=== PATIENT | female | born 1940 | race African-American/Black ===

== ENCOUNTER 2018-04-08 17:50 | Inpatient (IN) | payer MEDICARE, MEDICAID ==
[~2018-04-08] VITALS: Ht 162.6 cm; Wt 86.9 kg
[2018-04-08 17:51] VITALS: BP 135/75
[2018-04-08] MEDS ORDERED: Ipratropium 0.02% Inh Soln 2.5ml UD HHN ONE (18:15)
[2018-04-08] MEDS ORDERED: Albuterol ud Inhalation HHN ONE (18:15)
[2018-04-08 18:57] LABS: BASOPHILS % (AUTO) 2.3 % (0.0-2.0); EOSINOPHILS % (AUTO) 1.1 % (0.0-3.0); HEMATOCRIT 39.9 % (37.0-47.0); HEMOGLOBIN 12.9 G/DL (12.0-16.0); LYMPHOCYTES % (AUTO) 32.6 % (20.0-45.0); MEAN CORPUSCULAR VOLUME 92 FL (80-99); MONOCYTES % (AUTO) 12.9 % (1.0-10.0); NEUTROPHILS % (AUTO) 51.1 % (45.0-75.0); PLATELET COUNT 172 K/UL (150-450); RED BLOOD COUNT 4.34 M/UL (4.20-5.40); RED CELL DISTRIBUTION WIDTH 15.2 % (11.6-14.8); WHITE BLOOD COUNT 4.7 K/UL (4.8-10.8)
[2018-04-08 19:14] LABS: ANION GAP 5 mmol/L (5-15); BLOOD UREA NITROGEN 47 mg/dL (7-18); CALCIUM 9.2 MG/DL (8.5-10.1); CARBON DIOXIDE 32 MMOL/L (21-32); CHLORIDE 103 MMOL/L (98-107); CREATININE 1.2 MG/DL (0.55-1.30); POTASSIUM 4.2 MMOL/L (3.5-5.1); SODIUM 140 MMOL/L (136-145)
[2018-04-08 19:24] LABS: APPEARANCE,URINE SLIGHTLY CLOUDY; BILIRUBIN, URINE NEGATIVE (NEGATIVE); COLOR,URINE PALE YELLOW; GLUCOSE, URINE (UA) NEGATIVE (NEGATIVE); KETONES,URINE NEGATIVE (NEGATIVE); LEUKOCYTE ESTERASE ,URINE NEGATIVE (NEGATIVE); NITRITE,URINE NEGATIVE (NEGATIVE); PH,URINE 5 (4.5-8.0); PROTEIN,URINE NEGATIVE (NEGATIVE); UROBILINOGEN,URINE NORMAL MG/DL (0.0-1.0)
[2018-04-08 19:42] LABS: ALANINE AMINOTRANSFERASE 13 U/L (12-78); ALBUMIN 3.1 G/DL (3.4-5.0); ALBUMIN/GLOBULIN RATIO 0.6 (1.0-2.7); ALKALINE PHOSPHATASE 79 U/L (46-116); ASPARTATE AMINO TRANSFERASE 28 U/L (15-37); BILIRUBIN,TOTAL 0.8 MG/DL (0.2-1.0); CKMB < 0.5 NG/ML (0.0-3.6); CREATINE KINASE 57 U/L (26-308)
[2018-04-08 20:00] VITALS: BP 128/80
--- NOTE | 2018-04-08 20:01 | Emergency Room Report ---
History of Present Illness General Chief Complaint: Dyspnea/Respdistress Source: Patient, EMS Present Illness HPI 77-year-old female presents ED complaining of shortness of breath. Started approximately one hour ago at home. O2 sats low at home area started on nonrebreather. History of CHF with leg swelling. Patient denies any chest pain. Denies any fevers or chills. Denies cough. No other aggravating relieving factors. Denies any other associated symptoms Allergies: Coded Allergies: No Known Allergies (Verified , 11/17/06) Patient History Past Medical History: CHF Past Surgical History: none Pertinent Family History: none Social History: Denies: smoking, alcohol use, drug use Now: No Immunizations: UTD Reviewed Nursing Documentation: PMH: Agreed; PSxH: Agreed Nursing Documentation-PMH Past Medical History: No History, Except For Hx Cardiac Problems: Yes - CHF Review of Systems All Other Systems: negative except mentioned in HPI Physical Exam Vital Signs Date Time Temp Pulse Resp B/P (MAP) Pulse Ox O2 Delivery O2 Flow Rate FiO2 04/08/18 17:42 97.8 100 18 148/76 99 Non-Rebreather 15.0 97.9 04/08/18 18:32 100 Sp02 EP Interpretation: reviewed, normal General Appearance: alert, GCS 15, non-toxic, mild distress Head: normocephalic, atraumatic Eyes: bilateral eye normal inspection, bilateral eye PERRL ENT: hearing grossly normal, normal pharynx, no angioedema, normal voice Neck: full range of motion, supple/symm/no masses Respiratory: chest non-tender, decreased breath sounds, crackles, speaking full sentences Cardiovascular #1: regular rate, rhythm, no edema Cardiovascular #2: 2+ carotid (R), 2+ carotid (L), 2+ radial (R), 2+ radial (L) , 2+ dorsalis pedis (R), 2+ dorsalis pedis (L) Gastrointestinal: normal bowel sounds, non tender, soft, non-distended, no guarding, no rebound Rectal: deferred Genitourinary: normal inspection, no CVA tenderness Musculoskeletal: back normal, gait/station normal, normal range of motion, non- tender Neurologic: alert, oriented x3, responsive, motor strength/tone normal, sensory intact, speech normal Psychiatric: judgement/insight normal, memory normal, mood/affect normal, no suicidal/homicidal ideation Reflexes: 3+ bicep (R), 3+ bicep (L), 3+ tricep (R), 3+ tricep (L), 3+ knee (R) , 3+ knee (L) Skin: normal color, no rash, warm/dry, well hydrated Lymphatic: no adenopathy Procedures Critical Care Time Critical Care Time i. I feel this is a highly complex case requiring extensive working including EKG/Rhythm strip, Xray/CT/US, Blood/urine lab work, repeat exams while in ED, and administration of strong opiates/narcotics for pain control, admission to hospital or close patient follow up. Total time: 30 min bedside evaluation and treatment excludes procedures (EKG). Reason for critical care: respiratory distress. hypoxia Possible complications: hypotension, hypertension, NC, shock, arrhythmias, metabolic acidosis, end organ damage, respiratory failure. Interventions: labs, ekg, cxr, abg, nebs. BIPAP. abx. lasix. Course: patient presenting with SOB. hypoxia. started on nebs. labs drawn. EKG. CXR. CXR shows profound CHF exacerbation. BNP elevated. ABG shows hypoxia. started on BIPAP. resp status improving. abx given. lasix given. Consultations: nursing staff, EMS, family Performed by: Dr Farah Tolerated well condition = serious j. because of unstable vital signs this patient had a condition that could potentially threaten life or limb. I feel this is a critical patient who required my full attention while patient was considered critical. Total Critical Care Time excluding procedures was greater than 35 minutes Medical Decision Making Diagnostic Impression: Primary Impression: Dyspnea Qualified Codes: R06.00 - Dyspnea, unspecified Additional Impression: Acute exacerbation of CHF (congestive heart failure) Qualified Codes: I50.9 - Heart failure, unspecified ER Course Hospital Course 77-year-old female presents ED complaining of shortness of breath, leg swelling Differential diagnoses include: NC/unstable angina, contusion, muscle strain, PTX, rib fracture Clinical course Patient placed on stretcher. on conveyor monitor. After initial history and physical I ordered labs, EKG, chest x-ray, nebs labs reviewed- no leukocytosis, hemoglobin/hematocrit stable, electrolytes ok, BNP elevated EKG - paced rhythm Chest x-ray- signficant pulmonary congestion, pacemaker Remains restless on nebs. O2 sats remained low. Started on BiPAP. Respiratory status improving Antibiotics given. Lasix given. Case discussed with Dr. Nguyen and he agreed to accept the patient to his service for further care and support I. I feel this is a highly complex case requiring extensive working including EKG/Rhythm strip, Xray/CT/US, Blood/urine lab work, repeat exams while in ED, and administration of strong opiates/narcotics for pain control, admission to hospital or close patient follow up. Diagnosis - CHF exacerbation, dyspnea admitted to SDU in serious condition Labs Test 04/08/18 18:05 04/08/18 18:15 04/08/18 19:00 Arterial Blood pH 7.390 (7.350-7.450) Arterial Blood Partial Pressure CO2 57.5 mmHg (35.0-45.0) Arterial Blood Partial Pressure O2 44.9 mmHg (75.0-100.0) Arterial Blood HCO3 34.3 mmol/L (22.0-26.0) Arterial Blood Oxygen Saturation 77.0 % (92.0-98.0) Arterial Blood Base Excess 7.6 Dustin Test Positive White Blood Count 4.7 K/UL (4.8-10.8) Red Blood Count 4.34 M/UL (4.20-5.40) Hemoglobin 12.9 G/DL (12.0-16.0) Hematocrit 39.9 % (37.0-47.0) Mean Corpuscular Volume 92 FL (80-99) Mean Corpuscular Hemoglobin 29.7 PG (27.0-31.0) Mean Corpuscular Hemoglobin Concent 32.4 G/DL (32.0-36.0) Red Cell Distribution Width 15.2 % (11.6-14.8) Platelet Count 172 K/UL (150-450) Mean Platelet Volume 8.1 FL (6.5-10.1) Neutrophils (%) (Auto) 51.1 % (45.0-75.0) Lymphocytes (%) (Auto) 32.6 % (20.0-45.0) Monocytes (%) (Auto) 12.9 % (1.0-10.0) Eosinophils (%) (Auto) 1.1 % (0.0-3.0) Basophils (%) (Auto) 2.3 % (0.0-2.0) Sodium Level 140 MMOL/L (136-145) Potassium Level 4.2 MMOL/L (3.5-5.1) Chloride Level 103 MMOL/L (98-107) Carbon Dioxide Level 32 MMOL/L (21-32) Anion Gap 5 mmol/L (5-15) Blood Urea Nitrogen 47 mg/dL (7-18) Creatinine 1.2 MG/DL (0.55-1.30) Estimat Glomerular Filtration Rate mL/min (>60) Glucose Level 79 MG/DL (74-106) Lactic Acid Level 1.00 mmol/L (0.4-2.0) Calcium Level 9.2 MG/DL (8.5-10.1) Total Bilirubin 0.8 MG/DL (0.2-1.0) Aspartate Amino Transf (AST/SGOT) 28 U/L (15-37) Alanine Aminotransferase (ALT/SGPT) 13 U/L (12-78) Alkaline Phosphatase 79 U/L (46-116) Total Creatine Kinase 57 U/L (26-308) Creatine Kinase MB < 0.5 NG/ML (0.0-3.6) Creatine Kinase MB Relative Index 0.8 Troponin I 0.000 ng/mL (0.000-0.056) Pro-B-Type Natriuretic Peptide 2284 pg/mL (0-125) Total Protein 8.6 G/DL (6.4-8.2) Albumin 3.1 G/DL (3.4-5.0) Globulin 5.5 g/dL Albumin/Globulin Ratio 0.6 (1.0-2.7) Urine Color Pale yellow Urine Appearance Slightly cloudy Urine pH 5 (4.5-8.0) Urine Specific [place] 1.015 (1.005-1.035) Urine Protein Negative (NEGATIVE) Urine Glucose (UA) Negative (NEGATIVE) Urine Ketones Negative (NEGATIVE) Urine Occult Blood 1+ (NEGATIVE) Urine Nitrite Negative (NEGATIVE) Urine Bilirubin Negative (NEGATIVE) Urine Urobilinogen Normal MG/DL (0.0-1.0) Urine Leukocyte Esterase Negative (NEGATIVE) Urine RBC 0-2 /HPF (0 - 2) Urine WBC 0-2 /HPF (0 - 2) Urine Squamous Epithelial Cells Many /LPF (NONE/OCC) Urine Amorphous Sediment Many /LPF (NONE) Urine Bacteria None /HPF (NONE) EKG Diagnostic Results Rate: normal Rhythm: other - atrial paced ST Segments: no acute changes ASA given to the pt in ED: No Rhythm Strip Diag. Results EP Interpretation: yes Rhythm: no PVC's, no ectopy Chest X-Ray Diagnostic Results Chest X-Ray Diagnostic Results : Chest X-Ray Ordered: Yes # of Views/Limited/Complete: 1 View Indication: Shortness of Breath EP Interpretation: Yes Interpretation: no pneumothorax, other - cardiomegaly. bilateral effusion. pacemaker Impression: Other - chf Electronically Signed by: Electronically signed by Gus Farah MD Last Vital Signs Date Time Temp Pulse Resp B/P (MAP) Pulse Ox O2 Delivery O2 Flow Rate FiO2 04/08/18 19:21 69 31 100 Facial 100 04/08/18 18:44 15.0 04/08/18 17:51 98.4 135/75 98.4 Status: improved Disposition: ADMITTED INPATIENT Condition: Serious Referrals: Harjit Nguyen MD (PCP) Gus Farah MD Apr 08, 2018 20:01
[2018-04-08] MEDS ORDERED: Piperacillin/Tazobactam 3.375 GM in NS 110 ML IVPB SCH (22:00)
[2018-04-08 22:03] VITALS: BP 148/67
[2018-04-08] MEDS ORDERED: ASPIRIN81 MG ORAL (22:13)
[2018-04-08] MEDS ORDERED: NORCO 5-325 TA1 EACH ORAL (22:13)
[2018-04-08] MEDS ORDERED: FUROSEMIDE80 M1 ORAL (22:13)
[2018-04-08 22:55] VITALS: BP 162/88
[2018-04-08] MEDS: Albuterol/Ipratropium 3ml neb HHN SCH (23:41)
[2018-04-09] VITALS: BP 162/88
[2018-04-09] MEDS: Solu-MEDROL 125mg Inj IVP SCH ×4 (01:07→21:18)
[2018-04-09] MEDS: Nitroglycerin 2% oint pkt TOPIC SCH ×4 (01:07→18:19)
[2018-04-09] MEDS: Vancomycin 1.5gm/D5W 250ml 250 ML IVPB SCH (01:07)
[2018-04-09] MEDS: Albuterol/Ipratropium 3ml neb HHN SCH ×6 (03:00→22:52)
[2018-04-09 04:00] VITALS: BP 116/56
[2018-04-09] MEDS ORDERED: Zosyn 3.375gm inj ONE (05:13)
[2018-04-09 05:18] LABS: ANION GAP 0 mmol/L (5-15); BLOOD UREA NITROGEN 38 mg/dL (7-18); CALCIUM 8.8 MG/DL (8.5-10.1); CARBON DIOXIDE 36 MMOL/L (21-32); CHLORIDE 105 MMOL/L (98-107); CREATININE 1.2 MG/DL (0.55-1.30); SODIUM 141 MMOL/L (136-145)
[2018-04-09 05:22] LABS: ALANINE AMINOTRANSFERASE 13 U/L (12-78); ALBUMIN 2.8 G/DL (3.4-5.0); ALBUMIN/GLOBULIN RATIO 0.6 (1.0-2.7); ALKALINE PHOSPHATASE 70 U/L (46-116); ASPARTATE AMINO TRANSFERASE 19 U/L (15-37); BILIRUBIN,TOTAL 0.7 MG/DL (0.2-1.0)
[2018-04-09] MEDS: Piperacillin/Tazobactam 3.375 GM in NS 110 ML IVPB SCH ×3 (06:22→21:20)
[2018-04-09 08:00] VITALS: BP 197/75
[2018-04-09] MEDS: Heparin 5000 units/ml inj SUBQ SCH ×2 (08:53→21:19)
[2018-04-09 11:56] VITALS: BP 181/82
--- NOTE | 2018-04-09 13:47 | Diagnostic Imaging Report ---
Indication: Shortest of breath Technique: XRAY Chest 1v Comparison: 06/08/2012 Findings: Cardiomegaly. Left-sided pacemaker with lead tips projecting over the expected regions of the right atrium and ventricle. There is bilateral interstitial opacification/edema and bilateral airspace opacities. No definite pneumothorax. Degenerative changes of the spine. No acute osseous abnormality. Impression: Cardiomegaly with interstitial and bilateral airspace opacities. Findings may be related to CHF. The possibility of superimposed pneumonia not entirely excluded. Clinical correlation/follow-up recommended. Question a degree of underlying interstitial lung disease. Recommend follow-up exam after resolution of acute process. Study obtained via the emergency department however patient admitted to the hospital at time of dictation of the final report.
[2018-04-09] MEDS: HYDROcodone/Acetamin 10/325 tab ORAL PRN ×2 (14:28→21:19)
[2018-04-09 16:00] VITALS: BP 135/65
--- NOTE | 2018-04-09 18:16 | History and Physical Report ---
DATE OF ADMISSION: 04/08/2018 CHIEF COMPLAINT: Respiratory failure and congestive heart failure. HISTORY OF PRESENT ILLNESS: The patient is a pleasant 77-year-old female. She has a history of hypertensive heart disease and venous insufficiency. She has a history of DVT, status post IVC filter, questionable pulmonary fibrosis and chronic obstructive pulmonary disease. She has a history of congestive heart failure. She was recently admitted for congestive heart failure exacerbation and discharged to a [facility] facility. She was doing well. She was discharged a little over a week ago. On the day of admission here, she felt weak and short of breath. She went to the emergency room. On evaluation there, she was in respiratory failure. She required placement on a BiPAP. ABG showed an elevated pCO2 of 57. Saturations were only in the 40s. The patient was placed on BiPAP. X-ray showed evidence of pulmonary edema and congestive heart failure. She is now admitted for further evaluation and care. The patient denies any dietary noncompliance or medication noncompliance. She denies any fevers or chills. She has had no cough. PAST MEDICAL HISTORY: As above. PAST SURGICAL HISTORY: Includes back surgery. CURRENT MEDICATIONS: Reconciled and reviewed. ALLERGIES: None. FAMILY HISTORY: None. SOCIAL HISTORY: Negative for tobacco, ethanol, or drugs. REVIEW OF SYSTEMS: GENERAL: No fever or chills. HEENT: No headaches or visual changes. CARDIOPULMONARY: Positive for shortness of breath, but no chest pain. GASTROINTESTINAL: No nausea or vomiting. GENITOURINARY: No urgency or frequency. MUSCULOSKELETAL: No joint pain or swelling. NEUROLOGIC: No evidence of seizures. PHYSICAL EXAMINATION: VITAL SIGNS: Temperature 98 degrees, pulse 60, respirations 20, and blood pressure 116/56. The patient is saturating 98% on 45% via BiPAP. GENERAL: The patient is in no apparent distress. She is alert and answers questions. NECK: Supple. There is no jugular venous distention. HEART: Regular rate and rhythm. LUNGS: Significant for bilateral rales. ABDOMEN: Soft, nontender, and nondistended. EXTREMITIES: Show 1+ to 2+ pitting edema. LABORATORY DATA: White count 4.7, hemoglobin 12, hematocrit 39, and platelets of 172,000. Most recent ABG showed a pH of 7.35, pCO2 62, pO2 of 200, bicarb 33, and O2 saturation of 99%. Sodium 140, potassium 4.2, chloride 103, bicarb 32, BUN 47, and creatinine is 1.2. The troponin is negative x2. Natriuretic peptide level was 2284. Urine was clear. ASSESSMENT: This is a pleasant female admitted with respiratory failure secondary to congestive heart failure exacerbation. 1. Respiratory failure. 2. Congestive heart failure exacerbation. 3. Hypertension. 4. History of deep venous thrombosis, status post IVC filter. 5. Chronic obstructive pulmonary disease. PLAN: 1. IV Lasix. 2. Topical nitrates. 3. Steroids. 4. Respiratory treatments. 5. Continue BiPAP. 6. Monitor blood gases. 7. Pulmonary consultation and Cardiology consultations to be obtained. Harjit Nguyen M.D. DR: CHAPARRO JOB#: [id number] CC:
[2018-04-09 20:00] VITALS: BP 153/76
[2018-04-10] VITALS: BP 132/68
[2018-04-10] MEDS: Nitroglycerin 2% oint pkt TOPIC SCH ×5 (00:22→23:44)
[2018-04-10] MEDS: Vancomycin 1.5gm/D5W 250ml 250 ML IVPB SCH (00:22)
[2018-04-10] MEDS: Albuterol/Ipratropium 3ml neb HHN SCH ×5 (02:38→19:41)
[2018-04-10] MEDS: HYDROcodone/Acetamin 10/325 tab ORAL PRN ×4 (03:54→20:20)
[2018-04-10 04:00] VITALS: BP 141/62
[2018-04-10] MEDS: Piperacillin/Tazobactam 3.375 GM in NS 110 ML IVPB SCH ×3 (05:18→22:09)
[2018-04-10] MEDS: Solu-MEDROL 125mg Inj IVP SCH ×3 (05:18→22:09)
[2018-04-10 08:00] VITALS: BP 169/85
--- NOTE | 2018-04-10 08:03 | General Progress Note ---
Assessment/Plan Problem List: (1) Pacemaker ICD Codes: Z95.0 - Presence of cardiac pacemaker SNOMED: 801409557 (2) DVT (deep venous thrombosis) ICD Codes: I82.409 - Acute embolism and thrombosis of unspecified deep veins of unspecified lower extremity SNOMED: 767150732 (3) HTN (hypertension) ICD Codes: I10 - Essential (primary) hypertension SNOMED: 13375746 (4) Dyspnea ICD Codes: R06.00 - Dyspnea, unspecified SNOMED: 999793777 Qualifiers: Qualified Codes: R06.00 - Dyspnea, unspecified (5) Acute exacerbation of CHF (congestive heart failure) ICD Codes: I50.9 - Heart failure, unspecified SNOMED: 15248677 Qualifiers: Qualified Codes: I50.9 - Heart failure, unspecified Status: stable, progressing Assessment/Plan cont current rx diuresis follow labs bp rx follow cxr pain rx Subjective ROS Limited/Unobtainable: No Constitutional: Reports: malaise, weakness HEENT: Reports: no symptoms Cardiovascular: Reports: edema Respiratory: Reports: cough, shortness of breath Gastrointestinal/Abdominal: Reports: no symptoms Genitourinary: Reports: no symptoms Neurologic/Psychiatric: Reports: no symptoms Endocrine: Reports: no symptoms Hematologic/Lymphatic: Reports: no symptoms Allergies: Coded Allergies: No Known Allergies (Verified , 11/17/06) All Systems: reviewed and negative except above Subjective better. on 4L. decreased sob. no cp Objective Last 24 Hour Vital Signs Date Time Temp Pulse Resp B/P (MAP) Pulse Ox O2 Delivery O2 Flow Rate FiO2 04/10/18 05:19 132/68 04/10/18 04:00 96.3 67 20 141/62 (88) 100 96.3 04/10/18 04:00 60 04/10/18 04:00 Nasal Cannula 3.0 04/10/18 02:39 66 18 98 04/10/18 02:39 65 18 98 Nasal Cannula 2.0 28 04/10/18 02:33 67 22 96 Nasal Cannula 3.0 32 04/10/18 00:58 61 18 97 04/10/18 00:27 60 20 96 04/10/18 00:22 132/68 04/10/18 00:00 60 04/10/18 00:00 97.3 66 20 132/68 (89) 96 97.3 04/10/18 00:00 Nasal Cannula 3.0 04/09/18 23:04 61 20 98 Nasal Cannula 2.0 28 04/09/18 22:52 60 20 97 04/09/18 22:52 60 20 97 Nasal Cannula 3.0 32 04/09/18 21:18 60 20 95 04/09/18 20:00 71 04/09/18 20:00 97.7 60 19 153/76 (101) 98 97.7 04/09/18 20:00 Nasal Cannula 3.0 04/09/18 19:20 95 Nasal Cannula 3.0 32 04/09/18 19:20 75 20 95 04/09/18 19:20 Nasal Cannula 3.0 32 04/09/18 19:20 Nasal Cannula 3.0 32 04/09/18 19:20 75 20 Nasal Cannula 3.0 32 04/09/18 19:20 75 20 95 Nasal Cannula 3.0 32 04/09/18 18:19 135/65 04/09/18 16:46 77 20 94 04/09/18 16:00 Venturi Mask 15.0 04/09/18 16:00 69 04/09/18 16:00 98.5 53 20 135/65 (88) 93 98.5 04/09/18 15:42 87 22 100 Nasal Cannula 2.0 28 04/09/18 15:29 59 22 93 Nasal Cannula 2.0 28 04/09/18 15:29 59 22 93 04/09/18 13:13 72 22 95 04/09/18 12:16 86 22 100 Nasal Cannula 2.0 28 04/09/18 12:02 84 22 100 Nasal Cannula 2.0 28 04/09/18 12:00 4.0 100 04/09/18 12:00 60 04/09/18 11:58 181/82 04/09/18 11:56 97.5 55 20 181/82 (115) 100 97.5 04/09/18 11:45 70 24 96 04/09/18 11:41 Venturi Mask 15.0 04/09/18 09:42 62 Intake and Output 04/09/18 04/10/18 19:00 07:00 Intake Total 480 ml 721.5 ml Output Total 1400 ml 500 ml Balance -920 ml 221.5 ml Intake Oral 480 ml 250 ml IV Total 471.5 ml Output Urine Total 1400 ml 500 ml # Bowel Movements 1 Height (Feet): 5 Height (Inches): 4.00 Weight (Pounds): 188 General Appearance: WD/WN, alert Neck: supple Cardiovascular: normal rate, regular rhythm Respiratory/Chest: crackles/rales Abdomen: normal bowel sounds, non tender, soft, no organomegaly Edema: mild edema 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
[2018-04-10] MEDS: Heparin 5000 units/ml inj SUBQ SCH ×2 (08:53→20:51)
--- NOTE | 2018-04-10 08:54 | Diagnostic Imaging Report ---
EXAM: XR Chest, 1 View CLINICAL HISTORY: COUGH TECHNIQUE: Frontal view of the chest. COMPARISON: April 08, 2018. FINDINGS: Enlarged cardiac silhouette with a interstitial and airspace opacities, similar to prior. Tortuous/ectatic thoracic aorta. Pacemaker device. No pleural effusions. IMPRESSION: Overall, little interval change. Suspected edema/failure with interstitial lung disease and atelectasis/infiltrates.
[2018-04-10 12:00] VITALS: BP 160/58
[2018-04-10] MEDS ORDERED: Tubing IV Secondary IV ONE (15:23)
[2018-04-10] MEDS ORDERED: NS 275ml ONE (15:23)
[2018-04-10 16:00] VITALS: BP 159/76
[2018-04-10 20:00] VITALS: BP 192/99
[2018-04-10] MEDS ORDERED: HydrALAZINE 25mg tab ORAL PRN (20:30)
[2018-04-10] MEDS ORDERED: Lisinopril 20mg tab ORAL SCH (21:00)
[2018-04-11] VITALS (7 sets, daily range): BP systolic 100–186; BP diastolic 56–93
[2018-04-11] MEDS ORDERED: Vancomycin 1.5gm/D5W 250ml 250 ML IVPB SCH
[2018-04-11] MEDS: HYDROcodone/Acetamin 10/325 tab ORAL PRN ×4 (02:55→21:29)
[2018-04-11] MEDS: Albuterol/Ipratropium 3ml neb HHN SCH ×6 (03:51→23:22)
[2018-04-11] MEDS: HydrALAZINE 25mg tab ORAL PRN ×3 (04:46→21:29)
[2018-04-11] MEDS: Solu-MEDROL 125mg Inj IVP SCH ×3 (06:30→21:21)
[2018-04-11] MEDS: Piperacillin/Tazobactam 3.375 GM in NS 110 ML IVPB SCH ×3 (06:30→21:21)
[2018-04-11] MEDS: Nitroglycerin 2% oint pkt TOPIC SCH ×3 (06:30→18:00)
[2018-04-11 08:18] LABS: ALANINE AMINOTRANSFERASE 14 U/L (12-78); ALBUMIN 2.9 G/DL (3.4-5.0); ALBUMIN/GLOBULIN RATIO 0.5 (1.0-2.7); ALKALINE PHOSPHATASE 64 U/L (46-116); ANION GAP 4 mmol/L (5-15); ASPARTATE AMINO TRANSFERASE 17 U/L (15-37); BILIRUBIN,TOTAL 0.4 MG/DL (0.2-1.0); BLOOD UREA NITROGEN 31 mg/dL (7-18); CALCIUM 9.3 MG/DL (8.5-10.1); CARBON DIOXIDE 37 MMOL/L (21-32); CHLORIDE 102 MMOL/L (98-107); CREATININE 1.1 MG/DL (0.55-1.30); POTASSIUM 3.9 MMOL/L (3.5-5.1); SODIUM 142 MMOL/L (136-145)
[2018-04-11] MEDS: Lisinopril 20mg tab ORAL SCH ×2 (08:53→21:20)
[2018-04-11] MEDS: Heparin 5000 units/ml inj SUBQ SCH ×2 (08:56→21:23)
--- NOTE | 2018-04-11 11:11 | General Progress Note ---
Assessment/Plan Problem List: (1) Pacemaker ICD Codes: Z95.0 - Presence of cardiac pacemaker SNOMED: 888325613 (2) DVT (deep venous thrombosis) ICD Codes: I82.409 - Acute embolism and thrombosis of unspecified deep veins of unspecified lower extremity SNOMED: 645214443 (3) HTN (hypertension) ICD Codes: I10 - Essential (primary) hypertension SNOMED: 49107503 (4) Dyspnea ICD Codes: R06.00 - Dyspnea, unspecified SNOMED: 795035565 Qualifiers: Qualified Codes: R06.00 - Dyspnea, unspecified (5) Acute exacerbation of CHF (congestive heart failure) ICD Codes: I50.9 - Heart failure, unspecified SNOMED: 51258758 Qualifiers: Qualified Codes: I50.9 - Heart failure, unspecified Status: stable, progressing Assessment/Plan cont current rx diuresis follow labs bp rx follow cxr pain rx Subjective ROS Limited/Unobtainable: No Constitutional: Reports: weakness HEENT: Reports: no symptoms Cardiovascular: Reports: edema Respiratory: Reports: shortness of breath Gastrointestinal/Abdominal: Reports: no symptoms Genitourinary: Reports: no symptoms Neurologic/Psychiatric: Reports: no symptoms Endocrine: Reports: no symptoms Hematologic/Lymphatic: Reports: no symptoms Allergies: Coded Allergies: No Known Allergies (Verified , 11/17/06) All Systems: reviewed and negative except above Subjective better. decreased o2 needs. decreased sob. no chest pain decreased edema. Objective Last 24 Hour Vital Signs Date Time Temp Pulse Resp B/P (MAP) Pulse Ox O2 Delivery O2 Flow Rate FiO2 04/11/18 08:53 159/79 04/11/18 08:00 69 04/11/18 08:00 98.1 62 20 159/79 (105) 96 98.1 04/11/18 08:00 Nasal Cannula 3.0 04/11/18 07:28 98 Nasal Cannula 3.0 32 04/11/18 07:28 92 20 100 Nasal Cannula 3.0 32 04/11/18 07:28 Nasal Cannula 3.0 32 04/11/18 07:20 89 18 92 Room Air 21 04/11/18 06:30 177/90 04/11/18 04:46 177/90 04/11/18 04:00 97.2 86 20 100/56 (71) 96 97.2 04/11/18 04:00 Nasal Cannula 3.0 04/11/18 04:00 101 04/11/18 03:51 70 20 98 Nasal Cannula 3.0 32 04/11/18 03:51 Nasal Cannula 04/11/18 00:00 97.5 60 20 166/82 (110) 100 97.5 04/11/18 00:00 Nasal Cannula 3.0 04/10/18 23:44 154/82 04/10/18 23:34 Nasal Cannula 04/10/18 23:34 65 20 97 Nasal Cannula 3.0 32 04/10/18 23:29 68 04/10/18 21:00 Nasal Cannula 3.0 04/10/18 20:52 192/99 04/10/18 20:00 97.5 60 20 192/99 (130) 100 97.5 04/10/18 20:00 63 04/10/18 19:51 60 20 100 Nasal Cannula 3.0 32 04/10/18 19:41 60 20 98 Nasal Cannula 3.0 32 04/10/18 19:41 98 Nasal Cannula 3.0 32 04/10/18 19:41 Nasal Cannula 3.0 32 04/10/18 17:58 169/85 04/10/18 16:00 60 04/10/18 16:00 97.2 60 22 159/76 (103) 98 97.2 04/10/18 16:00 Nasal Cannula 3.0 04/10/18 15:59 Nasal Cannula 04/10/18 15:57 Nasal Cannula 04/10/18 12:17 169/85 04/10/18 12:04 Nasal Cannula 3.0 04/10/18 12:00 60 04/10/18 12:00 97.5 60 24 160/58 (92) 96 97.5 04/10/18 11:56 63 20 100 Nasal Cannula 2.0 28 04/10/18 11:46 61 20 99 Nasal Cannula 3.0 32 Intake and Output 04/10/18 04/11/18 19:00 07:00 Intake Total 500 ml 747.5 ml Output Total 500 ml Balance 500 ml 247.5 ml Intake Oral 500 ml 360 ml IV Total 387.5 ml Output Urine Total 500 ml # Voids 4 # Bowel Movements 1 Laboratory Tests 04/11/18 06:30: Sodium Level 142, Potassium Level 3.9, Chloride Level 102, Carbon Dioxide Level 37H, Anion Gap 4L, Blood Urea Nitrogen 31H, Creatinine 1.1, Estimat Glomerular Filtration Rate , Glucose Level 102, Calcium Level 9.3, Magnesium Level 2.1, Total Bilirubin 0.4, Aspartate Amino Transf (AST/SGOT) 17, Alanine Aminotransferase (ALT/SGPT) 14, Alkaline Phosphatase 64, Total Protein 8.5H, Albumin 2.9L, Globulin 5.6, Albumin/Globulin Ratio 0.5L Height (Feet): 5 Height (Inches): 4.00 Weight (Pounds): 187 Objective General Appearance: WD/WN, alert Neck: supple Cardiovascular: normal rate, regular rhythm Respiratory/Chest: crackles/rales Abdomen: normal bowel sounds, non tender, soft, no organomegaly Edema: mild edema 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
--- NOTE | 2018-04-11 12:19 | Cardiology Report ---
APPROVED REPORT EKG Measurement Heart [id number] Atrial paced, ventricular sensed rhythm Electronic pacemaker Septal infarct, age undetermined Abnormal ECG
--- NOTE | 2018-04-11 19:00 | Consultation ---
DATE OF CONSULTATION: 04/11/2018 INFECTIOUS DISEASE CONSULTATION This consult is for coverage of Dr. Li. CONSULTING PHYSICIAN: Yazan Braden M.D. PRIMARY ATTENDING PHYSICIAN: Harjit Nguyen M.D. REASON FOR CONSULT: Bacteremia and COPD exacerbation. HISTORY OF PRESENT ILLNESS: This is a 77-year-old, female admitted on 04/08/2018 from home because of shortness of breath. She has history of COPD and CHF. At home, she is getting antibiotic. At the time of admission, she was on BiPAP. Blood culture growing gram-positive cocci. The patient had no fever or chills. PAST MEDICAL HISTORY: Significant for CHF, hypertension, history of DVT and IVC filter placement, history of pulmonary emboli, and status post pacemaker. ALLERGIES: No known drug allergies. MEDICATIONS: Getting Lasix, heparin, lisinopril, Protonix, vancomycin, Zosyn, methylprednisone, Zofran, albuterol, ipratropium inhaler, [place], hydralazine and nitroglycerin. SOCIAL HISTORY: Lives at home. No history of alcohol, drug abuse, or smoking. She is single. REVIEW OF SYSTEMS: No fever. No chills. She has productive coughing, but cannot brought up sputum. She has good appetite. No nausea. No vomiting. No problem passing urine. PHYSICAL EXAMINATION: VITAL SIGNS: Temperature 98.1 degrees, pulse 80, and blood pressure is 159/79. GENERAL APPEARANCE: No acute distress. HEAD AND NECK: Getting oxygen by Venturi mask. HEART: Normal rate. There is a pacemaker in the left side of the chest. LUNGS: Clear. ABDOMEN: Soft. EXTREMITIES: No significant edema. LABORATORY AND DIAGNOSTIC DATA: ABG showed pH of 7.352, pCO2 of 62.4, and pCO2 of 200, O2 saturation 99%. Sodium 142, potassium 3.9, chloride 107, bicarbonate 37, BUN 31, and creatinine 1.1. WBC 4.7, hemoglobin 12.9, hematocrit 39.9, and platelets 172. Chest x-ray, enlarged cardiac size, interstitial and air space opacities, suspected of edema with interstitial lung disease and atelectasis versus infiltrate. Blood culture, gram-positive cocci. IMPRESSION: 1. Bacteremia. The patient does not look septic. 2. Chronic obstructive pulmonary disease exacerbation. 3. Hypercapnic respiratory failure. 4. Congestive heart failure. 5. Hypertension. 6. History of pacemaker. RECOMMENDATION: We will continue Zosyn and vancomycin. We will follow up the culture and narrow antibiotics. At the end of my exam, I thank Dr. Nguyen for involving me in the care of this patient. Yazan Braden M.D. DR: AMBER JOB#: [id number] CC:
[2018-04-12] MEDS: Vancomycin 1.5gm/D5W 250ml 250 ML IVPB SCH (02:41)
[2018-04-12] MEDS ORDERED: Zolpidem 5mg tab ORAL PRN (02:45)
[2018-04-12] MEDS: Albuterol/Ipratropium 3ml neb HHN SCH ×5 (02:54→23:00)
[2018-04-12 04:00] VITALS: BP 199/102
[2018-04-12] MEDS: Piperacillin/Tazobactam 3.375 GM in NS 110 ML IVPB SCH ×3 (05:39→22:05)
[2018-04-12] MEDS: Solu-MEDROL 125mg Inj IVP SCH ×3 (05:39→21:24)
[2018-04-12] MEDS: Nitroglycerin 2% oint pkt TOPIC SCH ×4 (05:40→18:00)
[2018-04-12] MEDS: HYDROcodone/Acetamin 10/325 tab ORAL PRN ×3 (05:41→21:34)
[2018-04-12] MEDS: HydrALAZINE 25mg tab ORAL PRN ×2 (05:55→12:45)
[2018-04-12 08:00] VITALS: BP 182/92
[2018-04-12] MEDS: Lisinopril 20mg tab ORAL SCH ×2 (09:00→21:35)
[2018-04-12] MEDS: Heparin 5000 units/ml inj SUBQ SCH ×2 (09:04→21:28)
--- NOTE | 2018-04-12 11:16 | Diagnostic Imaging Report ---
Indication: Shortness of breath, COPD Technique: One view of the chest Comparison: 04/10/2018 Findings: Bilateral interstitial and airspace disease persists, appears stable on the left, slightly improved on the right. The heart size is difficult to assess. Pleural spaces are clear. Left chest pacemaker is again demonstrated Impression: Bilateral interstitial and airspace disease, minimally improved on the right, stable on the left, over one day
[2018-04-12 11:27] LABS: ALANINE AMINOTRANSFERASE 16 U/L (12-78); ALBUMIN 3.2 G/DL (3.4-5.0); ALBUMIN/GLOBULIN RATIO 0.5 (1.0-2.7); ALKALINE PHOSPHATASE 72 U/L (46-116); ANION GAP 6 mmol/L (5-15); ASPARTATE AMINO TRANSFERASE 15 U/L (15-37); BILIRUBIN,TOTAL 0.6 MG/DL (0.2-1.0); BLOOD UREA NITROGEN 28 mg/dL (7-18); CALCIUM 9.5 MG/DL (8.5-10.1); CARBON DIOXIDE 38 MMOL/L (21-32); CHLORIDE 98 MMOL/L (98-107); POTASSIUM 3.6 MMOL/L (3.5-5.1); SODIUM 141 MMOL/L (136-145)
[2018-04-12 12:00] VITALS: BP 172/71
--- NOTE | 2018-04-12 13:30 | General Progress Note ---
Assessment/Plan Problem List: (1) Pacemaker ICD Codes: Z95.0 - Presence of cardiac pacemaker SNOMED: 883588656 (2) DVT (deep venous thrombosis) ICD Codes: I82.409 - Acute embolism and thrombosis of unspecified deep veins of unspecified lower extremity SNOMED: 929068284 (3) HTN (hypertension) ICD Codes: I10 - Essential (primary) hypertension SNOMED: 20144224 (4) Dyspnea ICD Codes: R06.00 - Dyspnea, unspecified SNOMED: 390596493 Qualifiers: Qualified Codes: R06.00 - Dyspnea, unspecified (5) Acute exacerbation of CHF (congestive heart failure) ICD Codes: I50.9 - Heart failure, unspecified SNOMED: 65149160 Qualifiers: Qualified Codes: I50.9 - Heart failure, unspecified Assessment/Plan cont current rx diuresis increase bp rx follow labs bp rx follow cxr pain rx needs better bp control before dc Subjective ROS Limited/Unobtainable: No Constitutional: Reports: malaise, weakness HEENT: Reports: no symptoms Cardiovascular: Reports: edema Respiratory: Reports: orthopnea, shortness of breath, SOB with excertion Gastrointestinal/Abdominal: Reports: no symptoms Genitourinary: Reports: no symptoms Neurologic/Psychiatric: Reports: pre-existing deficit Endocrine: Reports: no symptoms Hematologic/Lymphatic: Reports: anemia Allergies: Coded Allergies: No Known Allergies (Verified , 11/17/06) All Systems: reviewed and negative except above Subjective better. decreased o2 needs. decreased sob. no chest pain decreased edema. BP remains high and difficult to control. Objective Last 24 Hour Vital Signs Date Time Temp Pulse Resp B/P (MAP) Pulse Ox O2 Delivery O2 Flow Rate FiO2 04/12/18 12:45 172/71 04/12/18 12:00 60 04/12/18 12:00 98.1 59 18 172/71 (104) 97 98.1 04/12/18 12:00 172/71 04/12/18 11:40 Nasal Cannula 3.0 32 04/12/18 11:35 Nasal Cannula 04/12/18 11:35 Nasal Cannula 3.0 32 04/12/18 11:35 Nasal Cannula 04/12/18 11:35 59 20 98 Nasal Cannula 3.0 32 04/12/18 11:35 59 Nasal Cannula 3.0 32 04/12/18 11:35 59 20 98 Nasal Cannula 3.0 32 04/12/18 10:57 98.2 04/12/18 09:58 98.2 04/12/18 09:00 182/92 04/12/18 08:52 Nasal Cannula 3.0 04/12/18 08:00 66 04/12/18 08:00 98.2 58 18 182/92 (122) 97 98.2 04/12/18 05:55 169/85 04/12/18 04:00 98.0 62 18 199/102 (134) 94 98.0 04/12/18 04:00 60 04/12/18 03:00 Nasal Cannula 04/12/18 02:54 Nasal Cannula 04/12/18 02:54 Nasal Cannula 04/12/18 00:00 60 04/11/18 23:30 62 20 99 Nasal Cannula 3.0 32 04/11/18 23:22 60 18 99 Nasal Cannula 3.0 32 04/11/18 21:29 169/85 04/11/18 21:20 169/85 04/11/18 21:00 Nasal Cannula 3.0 04/11/18 20:00 98.4 60 20 169/85 (113) 94 98.4 04/11/18 20:00 60 04/11/18 18:54 65 20 100 Nasal Cannula 3.0 32 04/11/18 18:47 Nasal Cannula 3.0 32 04/11/18 18:47 96 Nasal Cannula 3.0 32 04/11/18 18:47 60 18 96 Nasal Cannula 3.0 32 04/11/18 18:00 149/78 04/11/18 16:21 146/74 (98) 04/11/18 16:00 60 04/11/18 15:53 97.9 60 19 186/93 (124) 100 97.9 04/11/18 15:53 186/93 04/11/18 15:48 84 20 100 Nasal Cannula 3.0 32 04/11/18 15:38 87 18 98 Nasal Cannula 3.0 32 Intake and Output 04/11/18 04/12/18 19:00 07:00 Intake Total 1045.0 ml 227.5 ml Output Total 570 ml 1850 ml Balance 475.0 ml -1622.5 ml Intake Oral 880 ml 200 ml IV Total 165.0 ml 27.5 ml Output Urine Total 570 ml 1850 ml # Voids 2 # Bowel Movements 1 Laboratory Tests 04/11/18 23:05: Vancomycin Level Trough 15.9H 04/12/18 09:50: Sodium Level 141, Potassium Level 3.6, Chloride Level 98, Carbon Dioxide Level 38H, Anion Gap 6, Blood Urea Nitrogen 28H, Creatinine 1.0, Estimat Glomerular Filtration Rate , Glucose Level 98, Calcium Level 9.5, Total Bilirubin 0.6, Aspartate Amino Transf (AST/SGOT) 15, Alanine Aminotransferase (ALT/SGPT) 16, Alkaline Phosphatase 72, Total Protein 9.1H, Albumin 3.2L, Globulin 5.9, Albumin /Globulin Ratio 0.5L Height (Feet): 5 Height (Inches): 4.00 Weight (Pounds): 180 Objective General Appearance: WD/WN, alert Neck: supple Cardiovascular: normal rate, regular rhythm Respiratory/Chest: crackles/rales Abdomen: normal bowel sounds, non tender, soft, no organomegaly Edema: mild edema 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
[2018-04-12 15:48] VITALS: BP 156/85
[2018-04-12 20:21] VITALS: BP 141/87
[2018-04-13 00:45] VITALS: BP 132/80
[2018-04-13] MEDS: Albuterol/Ipratropium 3ml neb HHN SCH ×5 (03:00→19:22)
[2018-04-13 04:00] VITALS: BP 124/66
[2018-04-13] MEDS: Nitroglycerin 2% oint pkt TOPIC SCH ×6 (05:13→23:41)
[2018-04-13] MEDS: Vancomycin 1.5gm/D5W 250ml 250 ML IVPB SCH (05:14)
[2018-04-13] MEDS: Piperacillin/Tazobactam 3.375 GM in NS 110 ML IVPB SCH ×3 (05:15→21:16)
[2018-04-13] MEDS: Solu-MEDROL 125mg Inj IVP SCH ×3 (06:00→21:15)
--- NOTE | 2018-04-13 07:49 | General Progress Note ---
Assessment/Plan Problem List: (1) Pacemaker ICD Codes: Z95.0 - Presence of cardiac pacemaker SNOMED: 037694000 (2) DVT (deep venous thrombosis) ICD Codes: I82.409 - Acute embolism and thrombosis of unspecified deep veins of unspecified lower extremity SNOMED: 661341838 (3) HTN (hypertension) ICD Codes: I10 - Essential (primary) hypertension SNOMED: 64690284 (4) Dyspnea ICD Codes: R06.00 - Dyspnea, unspecified SNOMED: 475952937 Qualifiers: Qualified Codes: R06.00 - Dyspnea, unspecified (5) Acute exacerbation of CHF (congestive heart failure) ICD Codes: I50.9 - Heart failure, unspecified SNOMED: 73749361 Qualifiers: Qualified Codes: I50.9 - Heart failure, unspecified Status: stable Assessment/Plan cont current rx diuresis increase bp rx follow labs bp rx follow cxr pain rx iv abx per id needs better bp control before dc Subjective ROS Limited/Unobtainable: No Constitutional: Reports: weakness HEENT: Reports: no symptoms Cardiovascular: Reports: no symptoms Respiratory: Reports: shortness of breath Gastrointestinal/Abdominal: Reports: no symptoms Genitourinary: Reports: no symptoms Neurologic/Psychiatric: Reports: no symptoms Endocrine: Reports: no symptoms Hematologic/Lymphatic: Reports: no symptoms Allergies: Coded Allergies: No Known Allergies (Verified , 11/17/06) All Systems: reviewed and negative except above Subjective better. decreased o2 needs. decreased sob. no chest pain decreased edema. BP remains high and difficult to control. on iv abx for positive blood cultures Objective Last 24 Hour Vital Signs Date Time Temp Pulse Resp B/P (MAP) Pulse Ox O2 Delivery O2 Flow Rate FiO2 04/13/18 07:23 60 18 99 Nasal Cannula 3.0 32 04/13/18 07:12 97 Nasal Cannula 3.0 32 04/13/18 07:12 Nasal Cannula 3.0 32 04/13/18 07:12 60 18 97 Nasal Cannula 3.0 32 04/13/18 05:13 124/66 04/13/18 04:00 63 04/13/18 04:00 96.8 63 22 124/66 (85) 96 96.8 04/13/18 03:22 60 18 98 Nasal Cannula 3.0 32 04/13/18 03:22 60 18 98 Nasal Cannula 3.0 32 04/13/18 00:45 96.2 71 19 132/80 (97) 97 96.2 18 00:00 71 18 23:30 60 18 98 Nasal Cannula 3.0 32 716/18 23:30 60 18 98 Nasal Cannula 3.0 32 16/18 22:33 96.8 18 21:35 141/87 18 21:34 96.8 18 21:00 Nasal Cannula 3.0 18 20:21 96.8 69 22 141/87 (105) 98 96.8 04/12/18 20:00 63 18 19:15 60 20 98 Nasal Cannula 3.0 32 18 19:07 Nasal Cannula 3.0 32 18 19:07 60 18 97 Nasal Cannula 3.0 32 18 19:07 97 Nasal Cannula 3.0 32 18 18:00 156/85 04/12/18 16:00 86 04/12/18 15:48 98.0 60 17 156/85 (108) 97 98.0 18 15:12 60 20 99 Nasal Cannula 3.0 32 18 15:03 98.1 18 15:02 80 20 92 Nasal Cannula 3.0 32 18 12:45 172/71 18 12:00 60 18 12:00 98.1 59 18 172/71 (104) 97 98.1 04/12/18 12:00 172/71 04/12/18 11:40 Nasal Cannula 3.0 32 1618 11:35 Nasal Cannula 04/12/18 11:35 Nasal Cannula 3.0 32 18 11:35 Nasal Cannula 18 11:35 59 20 98 Nasal Cannula 3.0 32 18 11:35 59 Nasal Cannula 3.0 32 16/18 11:35 59 20 98 Nasal Cannula 3.0 32 04/12/18 10:57 98.2 04/12/18 09:58 98.2 04/12/18 09:00 182/92 04/12/18 08:52 Nasal Cannula 3.0 04/12/18 08:00 66 04/12/18 08:00 98.2 58 18 182/92 (122) 97 98.2 Intake and Output 04/12/18 04/13/18 19:00 07:00 Intake Total 987.5 ml Output Total 1400 ml Balance -412.5 ml IV Total 137.5 ml Other 850 ml Output Urine Total 1400 ml # Voids 2 1 # Bowel Movements 1 Laboratory Tests 04/12/18 09:50: Sodium Level 141, Potassium Level 3.6, Chloride Level 98, Carbon Dioxide Level 38H, Anion Gap 6, Blood Urea Nitrogen 28H, Creatinine 1.0, Estimat Glomerular Filtration Rate , Glucose Level 98, Calcium Level 9.5, Total Bilirubin 0.6, Aspartate Amino Transf (AST/SGOT) 15, Alanine Aminotransferase (ALT/SGPT) 16, Alkaline Phosphatase 72, Total Protein 9.1H, Albumin 3.2L, Globulin 5.9, Albumin /Globulin Ratio 0.5L Height (Feet): 5 Height (Inches): 4.00 Weight (Pounds): 179 Objective General Appearance: WD/WN, alert Neck: supple Cardiovascular: normal rate, regular rhythm Respiratory/Chest: crackles/rales Abdomen: normal bowel sounds, non tender, soft, no organomegaly Edema: mild edema 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
[2018-04-13 08:00] VITALS: BP 177/92
[2018-04-13 09:16] LABS: ALANINE AMINOTRANSFERASE 15 U/L (12-78); ALBUMIN/GLOBULIN RATIO 0.6 (1.0-2.7); ALKALINE PHOSPHATASE 64 U/L (46-116); ANION GAP 3 mmol/L (5-15); ASPARTATE AMINO TRANSFERASE 13 U/L (15-37); BILIRUBIN,TOTAL 0.7 MG/DL (0.2-1.0); BLOOD UREA NITROGEN 29 mg/dL (7-18); CARBON DIOXIDE 37 MMOL/L (21-32); CHLORIDE 101 MMOL/L (98-107); POTASSIUM 3.5 MMOL/L (3.5-5.1); SODIUM 141 MMOL/L (136-145)
[2018-04-13 09:21] LABS: CALCIUM 9.4 MG/DL (8.5-10.1)
[2018-04-13] MEDS: Lisinopril 20mg tab ORAL SCH ×2 (09:47→21:14)
[2018-04-13] MEDS: Heparin 5000 units/ml inj SUBQ SCH ×2 (09:48→21:16)
[2018-04-13] MEDS: HYDROcodone/Acetamin 10/325 tab ORAL PRN ×3 (09:56→21:12)
--- NOTE | 2018-04-13 10:46 | Infectious Diseases Prog Note ---
Assessment/Plan Assessment/Plan antibiotics : vancomycin iv, zosyn A 1. pneumonia 2. CHF 3. + blood cultures with coag neg staph likely contaminated 4. hypertension 5. COPD P 1. continue zosyn 2. d/c iv vancomycin 3. sputum culture 4. will follow up cultures Subjective Constitutional: Denies: fever, chills Respiratory: Denies: shortness of breath, dry cough Gastrointestinal/Abdominal: Denies: nausea, vomiting, diarrhea Musculoskeletal: Reports: pain Allergies: Coded Allergies: No Known Allergies (Verified , 11/17/06) Objective Vital Signs Last 24 Hour Vital Signs Date Time Temp Pulse Resp B/P (MAP) Pulse Ox O2 Delivery O2 Flow Rate FiO2 04/13/18 09:56 96.8 04/13/18 09:47 132/80 04/13/18 08:00 97.7 72 18 177/92 (120) 100 97.7 04/13/18 07:23 60 18 99 Nasal Cannula 3.0 32 04/13/18 07:12 97 Nasal Cannula 3.0 32 04/13/18 07:12 Nasal Cannula 3.0 32 04/13/18 07:12 60 18 97 Nasal Cannula 3.0 32 04/13/18 06:00 132/80 04/13/18 05:13 124/66 04/13/18 04:00 63 04/13/18 04:00 96.8 63 22 124/66 (85) 96 96.8 04/13/18 03:22 60 18 98 Nasal Cannula 3.0 32 04/13/18 03:22 60 18 98 Nasal Cannula 3.0 32 04/13/18 00:45 96.2 71 19 132/80 (97) 97 96.2 04/13/18 00:00 71 04/12/18 23:30 60 18 98 Nasal Cannula 3.0 32 04/12/18 23:30 60 18 98 Nasal Cannula 3.0 32 04/12/18 22:33 96.8 04/12/18 21:35 141/87 04/12/18 21:34 96.8 04/12/18 21:00 Nasal Cannula 3.0 04/12/18 20:21 96.8 69 22 141/87 (105) 98 96.8 04/12/18 20:00 63 04/12/18 19:15 60 20 98 Nasal Cannula 3.0 32 04/12/18 19:07 Nasal Cannula 3.0 32 04/12/18 19:07 60 18 97 Nasal Cannula 3.0 32 04/12/18 19:07 97 Nasal Cannula 3.0 32 04/12/18 18:00 156/85 04/12/18 16:00 86 04/12/18 15:48 98.0 60 17 156/85 (108) 97 98.0 04/12/18 15:12 60 20 99 Nasal Cannula 3.0 32 04/12/18 15:03 98.1 04/12/18 15:02 80 20 92 Nasal Cannula 3.0 32 04/12/18 12:45 172/71 04/12/18 12:00 60 04/12/18 12:00 98.1 59 18 172/71 (104) 97 98.1 04/12/18 12:00 172/71 04/12/18 11:40 Nasal Cannula 3.0 32 04/12/18 11:35 Nasal Cannula 04/12/18 11:35 Nasal Cannula 3.0 32 04/12/18 11:35 Nasal Cannula 04/12/18 11:35 59 20 98 Nasal Cannula 3.0 32 04/12/18 11:35 59 Nasal Cannula 3.0 32 04/12/18 11:35 59 20 98 Nasal Cannula 3.0 32 04/12/18 10:57 98.2 Height (Feet): 5 Height (Inches): 4.00 Weight (Pounds): 179 Respiratory/Chest: lungs clear Cardiovascular: normal rate, regular rhythm, no gallop/murmur Abdomen: soft, non tender Extremities: no edema Laboratory Tests Test 04/13/18 08:05 Sodium Level 141 MMOL/L (136-145) Potassium Level 3.5 MMOL/L (3.5-5.1) Chloride Level 101 MMOL/L (98-107) Carbon Dioxide Level 37 MMOL/L (21-32) H Anion Gap 3 mmol/L (5-15) L Blood Urea Nitrogen 29 mg/dL (7-18) H Creatinine 1.0 MG/DL (0.55-1.30) Estimat Glomerular Filtration Rate mL/min (>60) Glucose Level 126 MG/DL (74-106) H Calcium Level 9.4 MG/DL (8.5-10.1) Total Bilirubin 0.7 MG/DL (0.2-1.0) Aspartate Amino Transf (AST/SGOT) 13 U/L (15-37) L Alanine Aminotransferase (ALT/SGPT) 15 U/L (12-78) Alkaline Phosphatase 64 U/L (46-116) Total Protein 8.4 G/DL (6.4-8.2) H Albumin 3.0 G/DL (3.4-5.0) L Globulin 5.4 g/dL Albumin/Globulin Ratio 0.6 (1.0-2.7) L Current Medications Medications (Trade) Dose Ordered Sig/Roseline Route PRN Reason Start Time Stop Time Status Last Admin Dose Admin Acetaminophen (Tylenol) 650 mg Q4H PRN ORAL Mild Pain/Temp > 100.5 04/12/18 13:28 05/12/18 13:27 Acetaminophen/ Hydrocodone Bitart ([place] 10/325) 1 tab Q4H PRN ORAL For Moderate Pain(Scale 4-6) 04/12/18 13:30 04/16/18 13:52 04/13/18 09:56 Albuterol/ Ipratropium (Albuterol/ Ipratropium) 3 ml Q4HRT HHN 04/11/18 03:00 04/13/18 22:59 04/13/18 07:16 Furosemide (Lasix) 40 mg EVERY 12 HOURS IV 04/11/18 09:00 05/09/18 08:59 04/13/18 09:48 Heparin Sodium (Porcine) (Heparin 5000 units/ml) 5,000 units EVERY 12 HOURS SUBQ 04/11/18 09:00 05/09/18 08:59 04/13/18 09:48 Hydralazine HCl (Apresoline) 25 mg Q4H PRN ORAL systolic >160 04/11/18 00:30 05/10/18 20:29 04/12/18 12:45 Lisinopril (Prinivil) 20 mg Q12HR ORAL 04/11/18 09:00 05/10/18 20:59 04/13/18 09:47 Methylprednisolone Sodium Succinate (Solu-MEDROL) 60 mg EVERY 8 HOURS IVP 04/11/18 06:00 05/08/18 21:59 04/13/18 06:00 Nitroglycerin (Nitro-Bid) 1 inch EVERY 6 HOURS TOPIC 04/11/18 00:00 05/09/18 00:00 04/13/18 06:00 Ondansetron HCl (Zofran) 4 mg Q6H PRN IVP Nausea & Vomiting 04/11/18 03:45 05/08/18 21:44 Oxycodone/ Acetaminophen (Percocet 10/325) 1 tab Q4H PRN ORAL Severe pain 04/12/18 06:00 04/19/18 05:59 04/12/18 09:58 Pantoprazole (Protonix) 40 mg DAILY ORAL 04/11/18 09:00 05/09/18 08:59 04/13/18 09:47 Piperacillin Sod/ Tazobactam Sod 3.375 gm/Sodium Chloride 110 ml @ 27.5 mls/hr EVERY 8 HOURS IVPB 04/11/18 06:00 04/16/18 05:59 04/13/18 05:15 Vancomycin HCl (Vanco rx to dose) 1 ea DAILY PRN MISC Per rx protocol 04/11/18 09:00 05/08/18 21:44 Vancomycin HCl/ Dextrose 250 ml @ 167 mls/hr Q24H IVPB 04/12/18 02:30 04/17/18 02:29 04/13/18 05:14 Zolpidem Tartrate (Ambien) 5 mg HSPRN PRN ORAL Insomnia 04/12/18 02:45 04/19/18 02:44 ENMA ENNIS Apr 13, 2018 10:46
[2018-04-13 12:00] VITALS: BP 170/90
[2018-04-13] MEDS: HydrALAZINE 25mg tab ORAL PRN (12:48)
[2018-04-13 16:00] VITALS: BP 168/96
[2018-04-13 20:00] VITALS: BP_SYST 157; BP_SYST 167; BP_DIAS 91
[2018-04-14] VITALS: BP_SYST 158; BP_SYST 165; BP_DIAS 89
[2018-04-14 04:00] VITALS: BP 165/89
[2018-04-14] MEDS: Solu-MEDROL 125mg Inj IVP SCH (05:07)
[2018-04-14] MEDS: Nitroglycerin 2% oint pkt TOPIC SCH (05:08)
[2018-04-14] MEDS: Piperacillin/Tazobactam 3.375 GM in NS 110 ML IVPB SCH ×3 (05:08→22:00)
[2018-04-14] MEDS: HydrALAZINE 25mg tab ORAL PRN (06:56)
--- NOTE | 2018-04-14 07:40 | General Progress Note ---
Assessment/Plan Problem List: (1) Pacemaker ICD Codes: Z95.0 - Presence of cardiac pacemaker SNOMED: 410948921 (2) DVT (deep venous thrombosis) ICD Codes: I82.409 - Acute embolism and thrombosis of unspecified deep veins of unspecified lower extremity SNOMED: 172305139 (3) HTN (hypertension) ICD Codes: I10 - Essential (primary) hypertension SNOMED: 43675437 (4) Dyspnea ICD Codes: R06.00 - Dyspnea, unspecified SNOMED: 673088132 Qualifiers: Qualified Codes: R06.00 - Dyspnea, unspecified (5) Acute exacerbation of CHF (congestive heart failure) ICD Codes: I50.9 - Heart failure, unspecified SNOMED: 04429582 Qualifiers: Qualified Codes: I50.9 - Heart failure, unspecified Status: stable, progressing Assessment/Plan cont current rx diuresis- conver to po increase bp rx follow iplabs bp rx follow cxr pain rx iv abx per id needs better bp control before dc possible dc tomorrow to snf if stable Subjective ROS Limited/Unobtainable: No Constitutional: Reports: malaise, weakness HEENT: Reports: no symptoms Cardiovascular: Reports: edema Respiratory: Reports: shortness of breath Gastrointestinal/Abdominal: Reports: no symptoms Genitourinary: Reports: no symptoms Neurologic/Psychiatric: Reports: pre-existing deficit Endocrine: Reports: no symptoms Hematologic/Lymphatic: Reports: no symptoms Allergies: Coded Allergies: No Known Allergies (Verified , 11/17/06) All Systems: reviewed and negative except above Subjective refusing iv lasix. decreased sob. no chest pain refusing nitrates due to headache. Objective Last 24 Hour Vital Signs Date Time Temp Pulse Resp B/P (MAP) Pulse Ox O2 Delivery O2 Flow Rate FiO2 04/14/18 06:56 222/111 04/14/18 05:08 165/89 04/14/18 04:00 61 04/14/18 04:00 97.5 59 18 165/89 (114) 99 97.5 04/14/18 00:00 97.5 60 18 158/89 (112) 100 97.5 04/14/18 00:00 63 04/13/18 21:14 167/91 04/13/18 21:00 Nasal Cannula 2.0 04/13/18 20:00 61 04/13/18 20:00 97.9 60 19 157/91 (113) 99 97.9 04/13/18 19:31 63 18 99 Nasal Cannula 3.0 32 04/13/18 19:23 Nasal Cannula 3.0 32 04/13/18 19:22 95 Nasal Cannula 3.0 32 04/13/18 19:22 60 18 95 Nasal Cannula 3.0 32 04/13/18 18:00 168/96 04/13/18 16:14 97.0 04/13/18 16:00 97.3 62 20 168/96 (120) 100 97.3 04/13/18 16:00 60 04/13/18 15:15 97.0 04/13/18 15:03 Nasal Cannula 04/13/18 15:02 Nasal Cannula 04/13/18 12:48 177/105 04/13/18 12:00 70 04/13/18 12:00 97.0 68 18 170/90 (116) 100 97.0 04/13/18 11:21 Nasal Cannula 04/13/18 11:20 Nasal Cannula 04/13/18 09:56 96.8 04/13/18 09:47 132/80 04/13/18 09:00 Nasal Cannula 2.0 04/13/18 08:00 97.7 72 18 177/92 (120) 100 97.7 04/13/18 08:00 73 Intake and Output 04/13/18 04/14/18 19:00 07:00 Intake Total 520 ml 402.5 ml Balance 520 ml 402.5 ml Intake Oral 520 ml 240 ml IV Total 162.5 ml # Voids 2 3 # Bowel Movements 1 1 Laboratory Tests 04/13/18 08:05: Sodium Level 141, Potassium Level 3.5, Chloride Level 101, Carbon Dioxide Level 37H, Anion Gap 3L, Blood Urea Nitrogen 29H, Creatinine 1.0, Estimat Glomerular Filtration Rate , Glucose Level 126H, Calcium Level 9.4, Total Bilirubin 0.7, Aspartate Amino Transf (AST/SGOT) 13L, Alanine Aminotransferase (ALT/SGPT) 15, Alkaline Phosphatase 64, Total Protein 8.4H, Albumin 3.0L, Globulin 5.4, Albumin /Globulin Ratio 0.6L Height (Feet): 5 Height (Inches): 4.00 Weight (Pounds): 190 Objective General Appearance: WD/WN, alert Neck: supple Cardiovascular: normal rate, regular rhythm Respiratory/Chest: crackles/rales Abdomen: normal bowel sounds, non tender, soft, no organomegaly Edema: mild edema 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
[2018-04-14 08:00] VITALS: BP 171/80
[2018-04-14] MEDS ORDERED: Furosemide 40mg tab ONE (08:49)
[2018-04-14] MEDS: Lisinopril 20mg tab ORAL SCH ×2 (08:52→21:03)
[2018-04-14] MEDS: Imdur 30mg tab ORAL SCH (08:52)
[2018-04-14] MEDS: HYDROcodone/Acetamin 10/325 tab ORAL PRN ×3 (09:00→21:04)
[2018-04-14] MEDS ORDERED: Doxazosin 1mg Tab ORAL SCH (09:00)
[2018-04-14] MEDS: Heparin 5000 units/ml inj SUBQ SCH ×2 (09:02→21:06)
[2018-04-14 09:20] LABS: ALANINE AMINOTRANSFERASE 17 U/L (12-78); ALBUMIN 3.2 G/DL (3.4-5.0); ALBUMIN/GLOBULIN RATIO 0.6 (1.0-2.7); ALKALINE PHOSPHATASE 67 U/L (46-116); ANION GAP 3 mmol/L (5-15); ASPARTATE AMINO TRANSFERASE 15 U/L (15-37); BILIRUBIN,TOTAL 0.7 MG/DL (0.2-1.0); BLOOD UREA NITROGEN 30 mg/dL (7-18); CALCIUM 9.4 MG/DL (8.5-10.1); CARBON DIOXIDE 37 MMOL/L (21-32); CHLORIDE 100 MMOL/L (98-107); CREATININE 0.9 MG/DL (0.55-1.30); SODIUM 140 MMOL/L (136-145)
[2018-04-14] MEDS: Furosemide 80mg tab ORAL SCH ×2 (09:48→21:00)
[2018-04-14 12:00] VITALS: BP 138/74
--- NOTE | 2018-04-14 12:44 | Infectious Diseases Prog Note ---
Assessment/Plan Assessment/Plan A 1. pneumonia 2. CHF 3. + blood cultures with coag neg staph likely contaminated 4. hypertension 5. COPD P 1. continue zosyn 2. will follow up cultures Subjective ROS Limited/Unobtainable: No Constitutional: Reports: no symptoms Respiratory: Reports: no symptoms Cardiovascular: Reports: no symptoms Gastrointestinal/Abdominal: Reports: no symptoms Musculoskeletal: Reports: no symptoms Allergies: Coded Allergies: No Known Allergies (Verified , 11/17/06) Objective Vital Signs Last 24 Hour Vital Signs Date Time Temp Pulse Resp B/P (MAP) Pulse Ox O2 Delivery O2 Flow Rate FiO2 04/14/18 12:00 60 04/14/18 12:00 98.1 60 19 138/74 (95) 98 98.1 04/14/18 09:00 Nasal Cannula 2.0 04/14/18 08:53 60 171/80 04/14/18 08:52 171/80 04/14/18 08:52 171/80 04/14/18 08:00 63 04/14/18 08:00 97.3 60 19 171/80 (110) 100 97.3 04/14/18 06:56 222/111 04/14/18 05:08 165/89 04/14/18 04:00 61 04/14/18 04:00 97.5 59 18 165/89 (114) 99 97.5 04/14/18 00:00 97.5 60 18 158/89 (112) 100 97.5 04/14/18 00:00 63 04/13/18 21:14 167/91 04/13/18 21:00 Nasal Cannula 2.0 04/13/18 20:00 61 04/13/18 20:00 97.9 60 19 157/91 (113) 99 97.9 04/13/18 19:31 63 18 99 Nasal Cannula 3.0 32 04/13/18 19:23 Nasal Cannula 3.0 32 04/13/18 19:22 95 Nasal Cannula 3.0 32 04/13/18 19:22 60 18 95 Nasal Cannula 3.0 32 18 18:00 168/96 04/13/18 16:14 97.0 04/13/18 16:00 97.3 62 20 168/96 (120) 100 97.3 04/13/18 16:00 60 04/13/18 15:15 97.0 04/13/18 15:03 Nasal Cannula 04/13/18 15:02 Nasal Cannula 04/13/18 12:48 177/105 Height (Feet): 5 Height (Inches): 4.00 Weight (Pounds): 190 HEENT: mucous membranes moist Respiratory/Chest: lungs clear Cardiovascular: normal rate Abdomen: soft, non tender Extremities: other - trace edema Laboratory Tests Test 04/14/18 07:15 Sodium Level 140 MMOL/L (136-145) Potassium Level 4.0 MMOL/L (3.5-5.1) Chloride Level 100 MMOL/L (98-107) Carbon Dioxide Level 37 MMOL/L (21-32) H Anion Gap 3 mmol/L (5-15) L Blood Urea Nitrogen 30 mg/dL (-18) H Creatinine 0.9 MG/DL (0.55-1.30) Estimat Glomerular Filtration Rate mL/min (>60) Glucose Level 97 MG/DL (74-106) Calcium Level 9.4 MG/DL (8.5-10.1) Total Bilirubin 0.7 MG/DL (0.2-1.0) Aspartate Amino Transf (AST/SGOT) 15 U/L (15-37) Alanine Aminotransferase (ALT/SGPT) 17 U/L (12-78) Alkaline Phosphatase 67 U/L (46-116) Total Protein 8.7 G/DL (6.4-8.2) H Albumin 3.2 G/DL (3.4-5.0) L Globulin 5.5 g/dL Albumin/Globulin Ratio 0.6 (1.0-2.7) L Current Medications Medications (Trade) Dose Ordered Sig/Roseline Route PRN Reason Start Time Stop Time Status Last Admin Dose Admin Acetaminophen (Tylenol) 650 mg Q4H PRN ORAL Mild Pain/Temp > 100.5 04/12/18 13:28 05/12/18 13:27 Acetaminophen/ Hydrocodone Bitart ([place] 10/325) 1 tab Q4H PRN ORAL For Moderate Pain(Scale 4-6) 04/12/18 13:30 04/16/18 13:52 04/14/18 09:00 Amlodipine Besylate (Norvasc) 5 mg BID ORAL 04/14/18 09:00 05/14/18 08:59 04/14/18 08:53 Doxazosin Mesylate (Cardura) 1 mg DAILY ORAL 04/14/18 09:00 05/14/18 08:59 04/14/18 08:53 Furosemide (Lasix) 80 mg EVERY 12 HOURS ORAL 04/14/18 09:00 05/14/18 08:59 04/14/18 09:48 Heparin Sodium (Porcine) (Heparin 5000 units/ml) 5,000 units EVERY 12 HOURS SUBQ 04/11/18 09:00 05/09/18 08:59 04/14/18 09:02 Hydralazine HCl (Apresoline) 25 mg Q4H PRN ORAL systolic >160 04/11/18 00:30 05/10/18 20:29 04/14/18 06:56 Isosorbide Mononitrate (Imdur) 30 mg DAILY ORAL 04/14/18 09:00 05/14/18 08:59 04/14/18 08:52 Lisinopril (Prinivil) 20 mg Q12HR ORAL 04/11/18 09:00 05/10/18 20:59 04/14/18 08:52 Ondansetron HCl (Zofran) 4 mg Q6H PRN IVP Nausea & Vomiting 04/11/18 03:45 05/08/18 21:44 Oxycodone/ Acetaminophen (Percocet 10/325) 1 tab Q4H PRN ORAL Severe pain 04/12/18 06:00 04/19/18 05:59 04/14/18 05:04 Pantoprazole (Protonix) 40 mg DAILY ORAL 04/11/18 09:00 05/09/18 08:59 04/14/18 08:53 Piperacillin Sod/ Tazobactam Sod 3.375 gm/Sodium Chloride 110 ml @ 27.5 mls/hr EVERY 8 HOURS IVPB 04/11/18 06:00 04/16/18 05:59 04/14/18 05:08 Zolpidem Tartrate (Ambien) 5 mg HSPRN PRN ORAL Insomnia 04/12/18 02:45 04/19/18 02:44 Yazan Braden MD Apr 14, 2018 12:44
[2018-04-14 16:00] VITALS: BP 131/79
[2018-04-14 20:00] VITALS: BP 157/90
[2018-04-15] VITALS (7 sets, daily range): BP systolic 105–188; BP diastolic 68–98
[2018-04-15] MEDS: HydrALAZINE 25mg tab ORAL PRN (06:01)
[2018-04-15] MEDS: Piperacillin/Tazobactam 3.375 GM in NS 110 ML IVPB SCH (06:02)
--- NOTE | 2018-04-15 08:45 | General Progress Note ---
Assessment/Plan Problem List: (1) Pacemaker ICD Codes: Z95.0 - Presence of cardiac pacemaker SNOMED: 491151239 (2) DVT (deep venous thrombosis) ICD Codes: I82.409 - Acute embolism and thrombosis of unspecified deep veins of unspecified lower extremity SNOMED: 962324758 (3) HTN (hypertension) ICD Codes: I10 - Essential (primary) hypertension SNOMED: 95706622 (4) Dyspnea ICD Codes: R06.00 - Dyspnea, unspecified SNOMED: 934514750 Qualifiers: Qualified Codes: R06.00 - Dyspnea, unspecified (5) Acute exacerbation of CHF (congestive heart failure) ICD Codes: I50.9 - Heart failure, unspecified SNOMED: 90791069 Qualifiers: Qualified Codes: I50.9 - Heart failure, unspecified Status: stable, not improved Assessment/Plan cont current rx diuresis- conver to po increase bp rx again follow up labs bp rx follow cxr pain rx iv abx per id needs better bp control before dc possible dc tomorrow to snf if stable Subjective ROS Limited/Unobtainable: No Constitutional: Reports: malaise, weakness HEENT: Reports: no symptoms Cardiovascular: Reports: no symptoms Respiratory: Reports: no symptoms Gastrointestinal/Abdominal: Reports: no symptoms Genitourinary: Reports: no symptoms Neurologic/Psychiatric: Reports: no symptoms Endocrine: Reports: no symptoms Hematologic/Lymphatic: Reports: no symptoms Allergies: Coded Allergies: No Known Allergies (Verified , 11/17/06) All Systems: reviewed and negative except above Subjective no events, BP remains elevated and uncontrolled. compliant with meds. +chronic pain. decreased sob. Objective Last 24 Hour Vital Signs Date Time Temp Pulse Resp B/P (MAP) Pulse Ox O2 Delivery O2 Flow Rate FiO2 04/15/18 07:00 60 18 173/87 (115) 04/15/18 06:01 188/98 04/15/18 04:00 97.7 60 18 188/98 (128) 99 97.7 04/15/18 04:00 68 04/15/18 00:00 96.6 60 18 158/90 (112) 100 96.6 04/15/18 00:00 64 04/14/18 21:03 157/90 04/14/18 21:00 Nasal Cannula 2.0 04/14/18 20:00 60 04/14/18 20:00 97.5 62 18 157/90 (112) 100 97.5 04/14/18 17:50 60 131/79 04/14/18 16:00 97.8 78 19 131/79 (96) 99 97.8 04/14/18 16:00 60 04/14/18 12:00 60 04/14/18 12:00 98.1 60 19 138/74 (95) 98 98.1 04/14/18 09:00 Nasal Cannula 2.0 04/14/18 08:53 60 171/80 04/14/18 08:52 171/80 04/14/18 08:52 171/80 Intake and Output 04/14/18 04/15/18 19:00 07:00 Intake Total 1000 ml 237.5 ml Balance 1000 ml 237.5 ml Intake Oral 100 ml IV Total 137.5 ml Other 1000 ml # Voids 4 # Bowel Movements 2 Height (Feet): 5 Height (Inches): 4.00 Weight (Pounds): 191 Objective General Appearance: WD/WN, alert Neck: supple Cardiovascular: normal rate, regular rhythm Respiratory/Chest: crackles/rales Abdomen: normal bowel sounds, non tender, soft, no organomegaly Edema: mild edema 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
[2018-04-15] MEDS: Lisinopril 20mg tab ORAL SCH (09:02)
[2018-04-15] MEDS: Imdur 30mg tab ORAL SCH (09:02)
[2018-04-15] MEDS: HYDROcodone/Acetamin 10/325 tab ORAL PRN (09:02)
[2018-04-15] MEDS: Doxazosin 1mg Tab ORAL SCH ×2 (09:03→18:00)
[2018-04-15] MEDS: Furosemide 80mg tab ORAL SCH (09:03)
[2018-04-15] MEDS: Heparin 5000 units/ml inj SUBQ SCH (09:04)
--- NOTE | 2018-04-15 12:14 | Infectious Diseases Prog Note ---
Assessment/Plan Assessment/Plan A 1. pneumonia 2. CHF 3. + blood cultures with coag neg staph likely contaminated 4. hypertension 5. COPD P 1. discontinue Zosyn 2. PO Levaquin X 2 days Subjective ROS Limited/Unobtainable: No Constitutional: Reports: no symptoms Respiratory: Reports: shortness of breath Cardiovascular: Reports: no symptoms Gastrointestinal/Abdominal: Reports: no symptoms Allergies: Coded Allergies: No Known Allergies (Verified , 11/17/06) Objective Vital Signs Last 24 Hour Vital Signs Date Time Temp Pulse Resp B/P (MAP) Pulse Ox O2 Delivery O2 Flow Rate FiO2 04/15/18 10:01 97.7 04/15/18 09:02 60 173/87 04/15/18 09:02 173/87 04/15/18 09:02 97.7 04/15/18 09:02 173/87 04/15/18 09:00 Nasal Cannula 2.0 04/15/18 08:00 97.8 61 20 178/86 (116) 98 97.8 04/15/18 07:00 60 18 173/87 (115) 04/15/18 06:01 188/98 04/15/18 04:00 97.7 60 18 188/98 (128) 99 97.7 04/15/18 04:00 68 04/15/18 00:00 96.6 60 18 158/90 (112) 100 96.6 04/15/18 00:00 64 04/14/18 21:03 157/90 04/14/18 21:00 Nasal Cannula 2.0 04/14/18 20:00 60 04/14/18 20:00 97.5 62 18 157/90 (112) 100 97.5 04/14/18 17:50 60 131/79 04/14/18 16:00 97.8 78 19 131/79 (96) 99 97.8 04/14/18 16:00 60 Height (Feet): 5 Height (Inches): 4.00 Weight (Pounds): 191 HEENT: mucous membranes moist Respiratory/Chest: lungs clear Cardiovascular: normal rate Abdomen: soft, non tender Extremities: other - legs edema Neurologic/Psychiatric: alert, responsive Current Medications Medications (Trade) Dose Ordered Sig/Roseline Route PRN Reason Start Time Stop Time Status Last Admin Dose Admin Acetaminophen (Tylenol) 650 mg Q4H PRN ORAL Mild Pain/Temp > 100.5 04/12/18 13:28 05/12/18 13:27 Acetaminophen/ Hydrocodone Bitart ([place] 10/325) 1 tab Q4H PRN ORAL For Moderate Pain(Scale 4-6) 04/12/18 13:30 04/16/18 13:52 04/15/18 09:02 Amlodipine Besylate (Norvasc) 5 mg BID ORAL 04/14/18 09:00 05/14/18 08:59 04/15/18 09:02 Doxazosin Mesylate (Cardura) 2 mg BID ORAL 04/15/18 09:00 05/15/18 08:59 04/15/18 09:03 Furosemide (Lasix) 80 mg EVERY 12 HOURS ORAL 04/14/18 09:00 05/14/18 08:59 04/15/18 09:03 Heparin Sodium (Porcine) (Heparin 5000 units/ml) 5,000 units EVERY 12 HOURS SUBQ 04/11/18 09:00 05/09/18 08:59 04/15/18 09:04 Hydralazine HCl (Apresoline) 25 mg Q4H PRN ORAL systolic >160 04/11/18 00:30 05/10/18 20:29 04/15/18 06:01 Hydralazine HCl (Apresoline) 50 mg Q8HR ORAL 04/15/18 14:00 05/15/18 13:59 Isosorbide Mononitrate (Imdur) 30 mg DAILY ORAL 04/14/18 09:00 05/14/18 08:59 04/15/18 09:02 Lisinopril (Prinivil) 20 mg Q12HR ORAL 04/11/18 09:00 05/10/18 20:59 04/15/18 09:02 Ondansetron HCl (Zofran) 4 mg Q6H PRN IVP Nausea & Vomiting 04/11/18 03:45 05/08/18 21:44 Oxycodone/ Acetaminophen (Percocet 10/325) 1 tab Q4H PRN ORAL Severe pain 04/12/18 06:00 04/19/18 05:59 04/15/18 04:50 Pantoprazole (Protonix) 40 mg DAILY ORAL 04/11/18 09:00 05/09/18 08:59 04/15/18 09:02 Piperacillin Sod/ Tazobactam Sod 3.375 gm/Sodium Chloride 110 ml @ 27.5 mls/hr EVERY 8 HOURS IVPB 04/11/18 06:00 04/20/18 05:59 04/15/18 06:02 Zolpidem Tartrate (Ambien) 5 mg HSPRN PRN ORAL Insomnia 04/12/18 02:45 04/19/18 02:44 Yazan Braden MD Apr 15, 2018 12:14
[2018-04-15] MEDS ORDERED: HydrALAZINE 50mg tab ORAL SCH (14:00)
[2018-04-16] MEDS ORDERED: Levofloxacin 500mg tab ORAL SCH (09:00)
--- NOTE | 2018-04-16 13:36 | Discharge Summary ---
Discharge Summary Discharge Summary _ DATE OF ADMISSION: 04/08/2018 DATE OF DISCHARGE: 04/15/2018 CONSULTANTS: Dr. Sly Li BRIEF HOSPITAL COURSE: Patient is a 77-year-old female, who presented to ED via EMS due to shortness of breath that started acutely. She has history of CHF with leg swelling, history of DVT status post IVC filter, questionable pulmonary fibrosis and COPD. She denied any chest pain. Denied fever, denied chills. On evaluation at ED, O2 saturation remained low, she was started on BiPAP. ABG showed elevated CO2 and saturations were low. Blood work showed no leukocytosis , hemoglobin and hematocrit were stable. BNP was elevated >2000. Chest x-ray showed significant pulmonary congestion. She was given Lasix and was started on IV antibiotics. She was eventually admitted for CHF exacerbation. She was given IV Lasix and was placed on respiratory treatments, she was continued on BiPAP. She was seen by infectious disease specialist and was started empirically on Zosyn and vancomycin. She was eventually tapered off BiPAP. She was continued on diuresis. There was decreased edema. She had elevated blood pressure that was difficult to control. She was given lisinopril, Norvasc, Imdur and hydralazine. Blood culture with growth of coagulase-negative staph, most likely contaminated. Zosyn was discontinued and was switched to po Levaquin. Breathing improved. Blood pressure controlled. She was then cleared for discharge to retirement. FINAL DIAGNOSES: Acute respiratory failure requiring BiPAP support, resolved Acute exacerbation of CHF Hypertension History of DVT status post IVC filter COPD DISPOSITION: Should was discharged to [facility]. DISCHARGE MEDICATIONS: Refer to Discharge Medication List. I have been assigned to dictate discharge summary on this account, and I was not involved in the patient's management. Inez Ruiz NP Apr 16, 2018 13:36
== END 2018-04-15 19:00 | DRG 291 ==
LOC: EDBD 17:50 → EMR 18:29 → EDBEDREQSVC 19:08 → 2W 19:59 → EDBEDREQ 21:44 → 2E 04-10 23:09
DX: I11.0 Hypertensive heart disease with heart failure (principal); J96.02 Acute respiratory failure with hypercapnia; J18.9 Pneumonia, unspecified organism; I50.9 Heart failure, unspecified; Z86.718 Personal history of other venous thrombosis and embolism; Z86.711 Personal history of pulmonary embolism; J44.9 Chronic obstructive pulmonary disease, unspecified; Z95.0 Presence of cardiac pacemaker
CPT/HCPCS: 36415; 36600; 71045; 80053; 80202; 81003; 82550; 82553; 82803; 83605; 83735; 83880; 84484; 85025; 87040; 87181; 93005; 94640; 94660; 94664; 94760; 99291; J7620

== ENCOUNTER 2019-07-20 10:54 | Inpatient (IN) | payer MEDICARE, MEDICAID ==
[~2019-07-20] VITALS: Ht 162.6 cm; Wt 67.6 kg
[~2019-07-20 10:54] MED LIST: ASPIRIN81 MG ORAL; FUROSEMIDE80 M1 ORAL; NORCO 5-325 TA1 EACH ORAL
[2019-07-20 10:55] VITALS: BP 166/80
--- NOTE | 2019-07-20 10:55 | NUR ---
ED Nurse Note: Patient arrived by EMS from SNF complaining of shortness of breath. Per nursing staff, O2 of 77% on 3L NC. EMS placed pt on 15L non rebreather. Patient sating 100% on 9 L simple facemask. AxO x 3. Urine and blood sent to lab. Patient on cardac monitor, bed in owest position.
[2019-07-20] MEDS ORDERED: Albuterol/Ipratropium 3ml neb ONE (11:02)
[2019-07-20] MEDS ORDERED: Albuterol/Ipratropium 3ml neb HHN ONE (11:15)
[2019-07-20 11:40] LABS: EOSINOPHILS % (AUTO) 1.4 % (0.0-3.0); HEMATOCRIT 45.4 % (37.0-47.0); HEMOGLOBIN 14.4 G/DL (12.0-16.0); LYMPHOCYTES % (AUTO) 30.6 % (20.0-45.0); MEAN CORPUSCULAR VOLUME 96 FL (80-99); MONOCYTES % (AUTO) 6.8 % (1.0-10.0); NEUTROPHILS % (AUTO) 60.3 % (45.0-75.0); PLATELET COUNT 202 K/UL (150-450); RED BLOOD COUNT 4.74 M/UL (4.20-5.40); RED CELL DISTRIBUTION WIDTH 12.4 % (11.6-14.8); WHITE BLOOD COUNT 4.8 K/UL (4.8-10.8)
[2019-07-20] MEDS ORDERED: CATAPRES0.1 MG ORAL (12:06)
[2019-07-20] MEDS ORDERED: FUROSEMIDE20 M1 ORAL (12:06)
[2019-07-20] MEDS ORDERED: HYDRALAZINE HCL50 MG ORAL (12:06)
[2019-07-20] MEDS ORDERED: LEVOTHYROXINE75 MCG ORAL (12:06)
[2019-07-20] MEDS ORDERED: METOPROLOL SUCC25 MG ORAL (12:06)
[2019-07-20] MEDS ORDERED: LISINOPRIL10 MG ORAL (12:06)
[2019-07-20] MEDS ORDERED: Piperacillin/Tazobactam 3.375 GM in NS 110 ML IVPB ONE (12:15)
--- NOTE | 2019-07-20 12:17 | Emergency Room Report ---
History of Present Illness General Chief Complaint: Dyspnea/Respdistress Source: Patient, Medical Record Present Illness HPI 79yo F w/ chf, interstitial pulmonary dz, COPD, pulmonary fibrosis, DVT status post IVC filter p/w SOB since yesterday, got worse today. Denies CP, fever, but does report cough. Allergies: Coded Allergies: No Known Allergies (Verified , 11/17/06) Patient History Past Medical History: see triage record Reviewed Nursing Documentation: PMH: Agreed; PSxH: Agreed Nursing Documentation-PMH Past Medical History: No History, Except For Hx Cardiac Problems: Yes - CHF, cardiomegaly Hx Hypertension: Yes - Hypothyroidism Hx Pacemaker: Yes Hx Cancer: No Hx Gastrointestinal Problems: Yes - intestinal obstruction Hx Neurological Problems: No - Myuscle weakness Review of Systems All Other Systems: negative except mentioned in HPI Physical Exam Vital Signs Date Time Temp Pulse Resp B/P (MAP) Pulse Ox O2 Delivery O2 Flow Rate FiO2 07/20/19 10:55 98.4 68 31 166/80 100 Room Air Sp02 EP Interpretation: reviewed, abnormal General Appearance: no apparent distress, alert, non-toxic Head: normocephalic Eyes: bilateral eye normal inspection, bilateral eye PERRL, bilateral eye EOMI ENT: normal ENT inspection, hearing grossly normal, normal pharynx, no angioedema, normal voice, moist mucus membranes Neck: normal inspection, full range of motion, supple, supple/symm/no masses Respiratory: chest non-tender, decreased breath sounds, rhonchi, chest symmetrical, palpation of chest normal Cardiovascular #1: normal peripheral pulses, regular rate, rhythm, JVD, edema Cardiovascular #2: 2+ radial (R), 2+ radial (L) Gastrointestinal: normal inspection, non tender, soft, no mass, no guarding, no rebound Rectal: deferred Genitourinary: normal inspection, no CVA tenderness Musculoskeletal: back normal, gait/station normal, normal range of motion, non- tender, no calf tenderness Neurologic: alert, responsive, recycling sorter III-XII nml as tested, motor strength/tone normal, sensory intact, speech normal Psychiatric: judgement/insight normal, memory normal, mood/affect normal, no suicidal/homicidal ideation Skin: no rash Lymphatic: no adenopathy Procedures Critical Care Time Critical Care Time 45 mins excluding all procedures due to severe distress and risk of resp failure Medical Decision Making Diagnostic Impression: Primary Impression: Pneumonia Additional Impression: Acute exacerbation of CHF (congestive heart failure) ER Course Patient with abnormal chest x-ray concerning for multifocal pneumonia versus CHF exacerbation, will admit, given antibiotics after blood cultures were drawn , also given IV Lasix, remained stable for telemetry, did get one nebulizer treatment and is now stable on 3 L supplemental oxygen. EKG Diagnostic Results EKG Time: 11:18 EP Interpretation: no stemi Rate: normal Rhythm: NSR ST Segments: no acute changes ASA given to the pt in ED: Yes Rhythm Strip Diag. Results Rhythm Strip Time: 12:26 EP Interpretation: yes Rate: 75 Rhythm: NSR, no PVC's, no ectopy Chest X-Ray Diagnostic Results Chest X-Ray Diagnostic Results : Chest X-Ray Ordered: Yes # of Views/Limited/Complete: 1 View Indication: Shortness of Breath EP Interpretation: Yes Interpretation: no consolidation, no effusion, no pneumothorax, no acute cardiopulmonary disease Impression: No acute disease Electronically Signed by: Laci Adorno MD Last Vital Signs Date Time Temp Pulse Resp B/P (MAP) Pulse Ox O2 Delivery O2 Flow Rate FiO2 07/20/19 10:59 98.2 110 20 215/110 (145) 96 Non-Rebreather Disposition: ADMITTED INPATIENT Condition: Stable Referrals: Harjit Nguyen MD (PCP) LACI ADORNO M.D Jul 20, 2019 12:17
[2019-07-20 12:29] LABS: ANION GAP 3 mmol/L (5-15); BLOOD UREA NITROGEN 13 mg/dL (7-18); CALCIUM 9.1 MG/DL (8.5-10.1); CARBON DIOXIDE 37 MMOL/L (21-32); CHLORIDE 105 MMOL/L (98-107); CREATININE 0.7 MG/DL (0.55-1.30); POTASSIUM 4.1 MMOL/L (3.5-5.1); SODIUM 145 MMOL/L (136-145)
[2019-07-20 12:45] LABS: ALANINE AMINOTRANSFERASE 14 U/L (12-78); ALBUMIN 2.7 G/DL (3.4-5.0); ALBUMIN/GLOBULIN RATIO 0.5 (1.0-2.7); ALKALINE PHOSPHATASE 73 U/L (46-116); ASPARTATE AMINO TRANSFERASE 20 U/L (15-37); BILIRUBIN,TOTAL 0.5 MG/DL (0.2-1.0)
--- NOTE | 2019-07-20 13:00 | NUR ---
ED Nurse Note: Patient resting in no distress. VSS. Small skin wound on sacral area on upper gluteal cleft. Pictures taken. Patient tolerating medications well. Will continue to monitor.
[2019-07-20] MEDS: HydrALAZINE 50mg tab ORAL SCH ×2 (14:00→20:55)
[2019-07-20 14:20] VITALS: BP 154/92
--- NOTE | 2019-07-20 14:22 | NUR ---
TRANSFER TO FLOOR: Patient transferred to Telemetry as ordered, per Dr. Child. Report given to Nolberto. Belongings and medications given to Patient. Family and or S/O informed of transfer.
--- NOTE | 2019-07-20 14:30 | Pulmonology Progress Note ---
Assessment/Plan Assessment/Plan Pulmonary Consultation HPI Patient is a 79yo woman with previous history on Congestive heart Failure, Hypertension, Chronic Obstructive Pulmonary Disease, Interstitial pulmonary disease, previous DVT - status post IVC filter, Hypothyroidism. Patient admitted c/o SOB since yesterday, got worse today. Denies Chest pain, fever, but does report cough. No hemoptysis. Noted to have patchy infiltrates in the ED - started on IV antibiotics, significantly elevated NPA Allergies: No Known Allergies Past Medical History: Congestive heart Failure, Hypertension, PPM, Chronic Obstructive Pulmonary Disease, Interstitial pulmonary disease, previous DVT - status post IVC filter, Hypothyroidism, Muscular weakness, previous intestinal obstruction All Other Systems: negative except mentioned in HPI Physical Exam Vital Signs Noted Date Time Temp Pulse Resp B/P (MAP) Pulse Ox O2 Delivery O2 Flow Rate FiO2 07/20/19 10:55 98.4 68 31 166/80 100 Room Air General Appearance: no apparent distress, alert, non-toxic Head: normocephalic Eyes: bilateral eye normal inspection, bilateral eye PERRL, bilateral eye EOMI ENT: normal ENT inspection, hearing grossly normal, normal pharynx, no angioedema, normal voice, moist mucus membranes Neck: moist mm, no LN Respiratory: chest non-tender, decreased breath sounds, rhonchi, chest symmetrical, palpation of chest normal Cardiovascular: normal peripheral pulses, regular rate, HS1, HS2 normal, rhythm , JVD, edema noted Gastrointestinal: normal inspection, non tender, soft, no mass, no guarding, no rebound Rectal: deferred Genitourinary: normal inspection, no CVA tenderness Musculoskeletal: back normal, gait/station normal, normal range of motion, non- tender, no calf tenderness Neurologic: alert, responsive, counter cutter normal as tested, motor strength/tone normal , sensory intact, speech normal Impression: Pneumonia Congestive heart Failure Hypertension Chronic Obstructive Pulmonary Disease Interstitial pulmonary disease Previous DVT - status post IVC filter Hypothyroidism Plan: IV AB Diuresis RAC SPECIALIST meds O2 PRN HHN Monitor labs R/o DVT/PE ST eval of swallow Aspiration precautions EKG: NSR ST Segments: no acute changes Chest X-Ray: no consolidation, no effusion, no pneumothorax, no acute cardiopulmonary disease Subjective ROS Limited/Unobtainable: No Respiratory: Reports: shortness of breath Allergies: Coded Allergies: No Known Allergies (Verified , 11/17/06) Objective Last 24 Hour Vital Signs Date Time Temp Pulse Resp B/P (MAP) Pulse Ox O2 Delivery O2 Flow Rate FiO2 07/20/19 11:10 20 16 99 Nasal Cannula 3.0 96 78 22 99 07/20/19 10:59 98.2 110 20 215/110 (145) 96 Non-Rebreather 07/20/19 10:55 68 31 07/20/19 10:55 98.4 68 31 166/80 100 Room Air Laboratory Tests 07/20/19 11:10: White Blood Count 4.8, Red Blood Count 4.74, Hemoglobin 14.4, Hematocrit 45.4, Mean Corpuscular Volume 96, Mean Corpuscular Hemoglobin 30.3, Mean Corpuscular Hemoglobin Concent 31.7L, Red Cell Distribution Width 12.4, Platelet Count 202, Mean Platelet Volume 8.0, Neutrophils (%) (Auto) 60.3, Lymphocytes (%) (Auto) 30.6, Monocytes (%) (Auto) 6.8, Eosinophils (%) (Auto) 1.4, Basophils (%) (Auto ) 1.0 07/20/19 11:50: Sodium Level 145, Potassium Level 4.1, Chloride Level 105, Carbon Dioxide Level 37H, Anion Gap 3L, Blood Urea Nitrogen 13, Creatinine 0.7, Estimat Glomerular Filtration Rate , Glucose Level 88, Calcium Level 9.1, Total Bilirubin 0.5, Aspartate Amino Transf (AST/SGOT) 20, Alanine Aminotransferase (ALT/SGPT) 14, Alkaline Phosphatase 73, Troponin I 0.000, Pro-B-Type Natriuretic Peptide 2126H , Total Protein 8.0, Albumin 2.7L, Globulin 5.3, Albumin/Globulin Ratio 0.5L Current Medications Medications (Trade) Dose Ordered Sig/Roseline Route PRN Reason Start Time Stop Time Status Last Admin Dose Admin Acetaminophen/ Hydrocodone Bitart ([place] 5/325) 1 tab Q4H PRN ORAL Moderate Pain (Pain Scale 4-6) 07/20/19 14:00 07/27/19 13:59 Clonidine HCl (Catapres Tab) 0.1 mg EVERY 6 HOURS ORAL 07/20/19 14:00 08/19/19 13:59 Furosemide (Lasix) 40 mg EVERY 12 HOURS IV 07/20/19 21:00 08/19/19 20:59 Hydralazine HCl (Apresoline) 50 mg EVERY 8 HOURS ORAL 07/20/19 14:00 08/19/19 13:59 Hydromorphone HCl (Dilaudid) 1 mg Q4H PRN IVP Severe Pain (Pain Scale 7-10) 07/20/19 14:00 07/27/19 13:59 Levothyroxine Sodium (Synthroid) 100 mcg DAILY@0630 ORAL 07/21/19 06:30 08/20/19 06:29 Lisinopril (Prinivil) 20 mg BID ORAL 07/20/19 18:00 08/19/19 17:59 Metoprolol Succinate (Toprol XL) 25 mg DAILY ORAL 07/20/19 15:00 08/19/19 14:59 Edvin Velasquez MD Jul 20, 2019 14:30
--- NOTE | 2019-07-20 14:50 | NUR ---
NURSE NOTES: Report received from ABHIJIT Red. Pt. came in from ER via [facility]. AOx3. In 3.5L NC. produce inspector applied. VS stable. Oriented to room. R AC 20g and L AC 18g IV both flushed, SL. Pt. skin is intact except for old sacral scar and dryness. Bed on lowest position, side rails upx2, brakes engaged, alarm on. Instructions given to use call light for safety. call light placed within easy reach.
[2019-07-20 14:53] VITALS: BP 145/72
[2019-07-20] MEDS ORDERED: HydrALAZINE 25mg tab ORAL PRN (15:00)
[2019-07-20] MEDS: Metoprolol Succinate XL 25mg tab ORAL SCH (15:00)
[2019-07-20] MEDS ORDERED: Vancomycin 1.25gm/NS Premix IVPB ONE (16:30)
--- NOTE | 2019-07-20 18:10 | NUR ---
NM Lung V/Q Scan complete and sent to [facility] for preliminary results.
[2019-07-20] MEDS: Lisinopril 20mg tab ORAL SCH (18:25)
--- NOTE | 2019-07-20 18:25 | Diagnostic Imaging Report ---
Indications: Shortness of breath and deep venous thrombosis Technique: IV administration 5.1 mCi 99m technetium macroaggregated albumin. Images obtained over the lungs in multiple projections. Previously, patient inhaled 40 mCi aerosolized 99M technetium DTPA. Images obtained over the lungs in multiple projections Comparison: Reference made to chest radiograph of earlier the same day Findings: There is markedly abnormal and heterogeneous perfusion involving both lungs. Similarly, there is markedly abnormal findings on the aerosol images. No definite mismatch abnormality demonstrated. Impression: No definite evidence of mismatch. Nonetheless, given the extent of the perfusion abnormality-probably related to the extensive infiltrates/edema demonstrated on earlier chest radiograph-findings are deemed intermediate probability for pulmonary embolus This agrees with the preliminary interpretation provided overnight by [facility] teleradiology service.
[2019-07-20] MEDS: HYDROcodone/Acetamin 5/325 tab ORAL PRN (18:52)
[2019-07-20 20:00] VITALS: BP 158/87
--- NOTE | 2019-07-20 20:18 | Diagnostic Imaging Report ---
Indication: Reason For Exam: SOB Technique: Single AP view of the chest. Comparison: Chest radiograph dated 04/11/2018 Findings: The cardiomediastinal silhouette is obscured by adjacent opacities. There are severe bilateral interstitial and airspace opacities. No large pleural effusion. No pneumothorax. No acute osseous abnormality. Unchanged left upper ICD/pacemaker. IMPRESSION: Bilateral diffuse interstitial and airspace opacities, the differential for which includes ARDS, multifocal pneumonia, or pulmonary edema.
--- NOTE | 2019-07-20 20:41 | NUR ---
NURSE NOTES: Received pt from TABITHA Hays. Pt awake, alert, and talkative. Bed in lowest position. Call light within reach. Will continue to monitor.
[2019-07-20] MEDS: Doxycycline Monohydrate 100mg ORAL SCH (20:54)
[2019-07-20] MEDS: Piperacillin/Tazobactam 3.375 GM in NS 110 ML IVPB SCH (20:55)
[2019-07-20] MEDS ORDERED: Heparin 5000 units/ml inj SUBQ SCH (21:00)
--- NOTE | 2019-07-20 23:35 | NUR ---
[facility] Downtime: On 03/09/2013 From to, The following electronic documentation will be located in the patient handwritten chart, Hydromorphone 1 mg/ml (Dilaudid) Given at 2335 for pain level of 7/10. - Reassessment done at 2350 0/10 Following patient discharge, paper documentation will be scanned into EP with the remainder of the paper chart. Nursing Documentation Physician orders Medication Administration Records Medication Reconciliation Respiratory Documentation Dietary Documentation Case Management Documentation Processing Associate Documentation
[2019-07-21] VITALS: BP 112/63
[2019-07-21 04:00] VITALS: BP 110/65
--- NOTE | 2019-07-21 04:49 | NUR ---
NURSE NOTES: Called and left a message with Dr. Velasquez and Dr. Nguyen regarding the results of pts VQ scan. Dr Velasquez called back with the following orders: - Lovenox dose per pharmacy - D/C Heparin Will input orders and will continue to monitor.
[2019-07-21] MEDS ORDERED: Enoxaparin 80mg Inj SUBQ SCH (05:00)
[2019-07-21] MEDS: HydrALAZINE 50mg tab ORAL SCH ×3 (05:34→21:43)
[2019-07-21] MEDS: Piperacillin/Tazobactam 3.375 GM in NS 110 ML IVPB SCH ×3 (05:49→22:16)
[2019-07-21] MEDS: HYDROmorphone 1mg/ml Carpuject IVP PRN ×2 (05:49→21:49)
--- NOTE | 2019-07-21 06:47 | CDS Physician Query ---
Clarification is required for compliance, coding accuracy, and to reflect severity of illness for this patient Dear Edvin Lee MD Date: 07/21/2019 CDS: Jean Medina Patient is a 79yo woman with previous history on Congestive heart Failure, Hypertension, Chronic Obstructive Pulmonary Disease, Interstitial pulmonary disease, previous DVT - status post IVC filter, Hypothyroidism. Patient admitted c/o SOB since yesterday, got worse today. Denies Chest pain, fever, but does report cough. No hemoptysis. Noted to have patchy infiltrates in the ED - started on IV antibiotics, significantly elevated NPA A diagnosis of "Pneumonia" is documented, and the patient is on: Tx: IV PIPERACILLIN/TAZOBACTAM, IV VANCOMYCIN Please specify the underlying etiology: [] Gram +Positive Organism(s) [] Anaerobes [] Gram -Negative Organism(s) [] Aspiration [] Pseudomonas [] Mycoplasma [] MRSA [] Not Applicable [] Other organism(s). Please specify: Present on Admission: [] Yes [] No [] Clinically Undetermined Physician signature Date Please also document in your Progress Notes and/or Discharge Summary and indicate if the condition was present on admission. LIBERTYD
--- NOTE | 2019-07-21 06:54 | CDS Physician Query ---
Clarification is required for compliance, coding accuracy, and to reflect severity of illness for this patient Dear Edvin Lee MD Date: 07/21/2019 Sort Manager/CDS Name: Jean Medina Patient is a 79yo woman with previous history on Congestive heart Failure, Hypertension, Chronic Obstructive Pulmonary Disease, Interstitial pulmonary disease, previous DVT - status post IVC filter, Hypothyroidism. Patient admitted c/o SOB since yesterday, got worse today. Denies Chest pain, fever, but does report cough. No hemoptysis. Noted to have patchy infiltrates in the ED - started on IV antibiotics, significantly elevated NPA "CHF" documented in Progress Notes Labs: BNP: 2126 Tx: IV FUROCEMIDE Please Clarify: Acuity [] Acute [] Chronic [] Acute on Chronic Type [] Systolic [] Diastolic [] Systolic & Diastolic (Combined) [] Other: Present on Admission: [] Yes [] No [] Clinically Undetermined Physician signature Date Please also document in your Progress Notes and/or Discharge Summary and indicate if the condition was present on admission. MTDD
[2019-07-21 07:23] LABS: HEMATOCRIT 40.7 % (37.0-47.0); MEAN CORPUSCULAR VOLUME 95 FL (80-99); PLATELET COUNT 198 K/UL (150-450); RED BLOOD COUNT 4.27 M/UL (4.20-5.40); RED CELL DISTRIBUTION WIDTH 12.6 % (11.6-14.8); WHITE BLOOD COUNT 3.3 K/UL (4.8-10.8)
--- NOTE | 2019-07-21 07:29 | NUR ---
HAND-OFF: Report given to TABITHA Hubbard. Pt stable.
[2019-07-21 07:44] LABS: ANION GAP 2 mmol/L (5-15); BLOOD UREA NITROGEN 16 mg/dL (7-18); CALCIUM 8.8 MG/DL (8.5-10.1); CARBON DIOXIDE 37 MMOL/L (21-32); CHLORIDE 101 MMOL/L (98-107); POTASSIUM 3.8 MMOL/L (3.5-5.1); SODIUM 140 MMOL/L (136-145)
[2019-07-21 08:00] VITALS: BP 118/68
--- NOTE | 2019-07-21 08:10 | NUR ---
NURSE NOTES: Received patient from Paramjit Cha. Patient is awake in bed. answerinfg questions appropriately. NO complain of pain or discomfort at this time. Fall precautions in place. will monitor.
--- NOTE | 2019-07-21 08:20 | Pulmonology Progress Note ---
Assessment/Plan Assessment/Plan Impression: Pneumonia, diffuse VQ indeterminate but mostly matched defects Congestive heart Failure Hypertension Chronic Obstructive Pulmonary Disease Interstitial pulmonary disease Previous DVT - status post IVC filter Hypothyroidism Plan: IV ABx as is Diuresis and monitor imaging on Lovenox for PE dosing maintain meds O2 PRN HHN Monitor labs obtain duplex check KUB for IVC filter placement follow up on swallow evaluation Aspiration precautions monitor oxygen needs and acid base impression, plan, and exam edited and reviewed in detail care discussed with RN Subjective Allergies: Coded Allergies: No Known Allergies (Verified , 11/17/06) Subjective care noted and reviewed VQ matched defects Objective Last 24 Hour Vital Signs Date Time Temp Pulse Resp B/P (MAP) Pulse Ox O2 Delivery O2 Flow Rate FiO2 07/21/19 05:34 110/65 07/21/19 04:00 60 07/21/19 04:00 97.6 66 18 110/65 (80) 98 07/21/19 00:00 60 07/21/19 00:00 97.8 61 17 112/63 (79) 96 07/20/19 21:00 Nasal Cannula 3.0 07/20/19 20:55 158/87 07/20/19 20:00 98.4 61 17 158/87 (110) 96 07/20/19 20:00 66 07/20/19 18:27 145/72 07/20/19 18:25 145/72 07/20/19 16:00 63 07/20/19 15:35 96.6 60 17 145/72 95 Nasal Cannula 3.5 96 07/20/19 15:00 60 145/72 07/20/19 14:53 96.6 60 17 145/72 (96) 95 07/20/19 14:48 Nasal Cannula 3.5 07/20/19 14:20 98.4 63 16 154/92 94 Nasal Cannula 3.5 07/20/19 11:10 20 16 99 Nasal Cannula 3.0 96 78 22 99 07/20/19 10:59 98.2 110 20 215/110 (145) 96 Non-Rebreather 07/20/19 10:55 68 31 07/20/19 10:55 98.4 68 31 166/80 100 Room Air Intake and Output 07/20/19 07/21/19 19:00 07:00 Intake Total 100 ml Output Total 800 ml Balance 100 ml -800 ml Intake Oral 0 ml IV Total 100 ml Output Urine Total 800 ml # Voids 3 # Bowel Movements 2 Objective WDWN NAD reduced breath sounds bilaterally with scattered rhonchi [id number] without MRG NABS nontender no HSM no CCE nonfocal reviewed and edited Microbiology Date/Time Source Procedure Growth Status 07/20/19 14:00 Rectum Received Laboratory Tests 07/20/19 11:10: White Blood Count 4.8, Red Blood Count 4.74, Hemoglobin 14.4, Hematocrit 45.4, Mean Corpuscular Volume 96, Mean Corpuscular Hemoglobin 30.3, Mean Corpuscular Hemoglobin Concent 31.7L, Red Cell Distribution Width 12.4, Platelet Count 202, Mean Platelet Volume 8.0, Neutrophils (%) (Auto) 60.3, Lymphocytes (%) (Auto) 30.6, Monocytes (%) (Auto) 6.8, Eosinophils (%) (Auto) 1.4, Basophils (%) (Auto ) 1.0 07/20/19 11:50: Sodium Level 145, Potassium Level 4.1, Chloride Level 105, Carbon Dioxide Level 37H, Anion Gap 3L, Blood Urea Nitrogen 13, Creatinine 0.7, Estimat Glomerular Filtration Rate , Glucose Level 88, Calcium Level 9.1, Total Bilirubin 0.5, Aspartate Amino Transf (AST/SGOT) 20, Alanine Aminotransferase (ALT/SGPT) 14, Alkaline Phosphatase 73, Troponin I 0.000, Pro-B-Type Natriuretic Peptide 2126H , Total Protein 8.0, Albumin 2.7L, Globulin 5.3, Albumin/Globulin Ratio 0.5L 07/21/19 05:42: White Blood Count 3.3L, Red Blood Count 4.27, Hemoglobin 13.0, Hematocrit 40.7, Mean Corpuscular Volume 95, Mean Corpuscular Hemoglobin 30.3, Mean Corpuscular Hemoglobin Concent 31.8L, Red Cell Distribution Width 12.6, Platelet Count 198, Mean Platelet Volume 8.0, Neutrophils (%) (Auto) , Lymphocytes (%) (Auto) , Monocytes (%) (Auto) , Eosinophils (%) (Auto) , Basophils (%) (Auto) , Sodium Level 140, Potassium Level 3.8, Chloride Level 101, Carbon Dioxide Level 37H, Anion Gap 2L, Blood Urea Nitrogen 16, Creatinine 1.0, Estimat Glomerular Filtration Rate , Glucose Level 71L, Calcium Level 8.8, Neutrophils % (Manual) [ Pending], Lymphocytes % (Manual) [Pending], Platelet Estimate [Pending], Platelet Morphology [Pending] Current Medications Medications (Trade) Dose Ordered Sig/Roseline Route PRN Reason Start Time Stop Time Status Last Admin Dose Admin Acetaminophen/ Hydrocodone Bitart (Horicon 5/325) 1 tab Q4H PRN ORAL Moderate Pain (Pain Scale 4-6) 07/20/19 14:00 07/27/19 13:59 07/20/19 18:52 Aspirin (Ecotrin) 81 mg DAILY ORAL 07/21/19 09:00 08/20/19 08:59 Clonidine HCl (Catapres Tab) 0.1 mg EVERY 6 HOURS ORAL 07/20/19 14:00 08/19/19 13:59 07/20/19 18:27 Doxycycline Monohydrate (Doxycycline Monohydrate) 100 mg EVERY 12 HOURS ORAL 07/20/19 21:00 07/27/19 20:59 07/20/19 20:54 Enoxaparin Sodium (Lovenox) 70 mg Q12H SUBQ 07/21/19 05:00 08/20/19 04:59 07/21/19 05:00 Furosemide (Lasix) 40 mg EVERY 12 HOURS IV 07/20/19 21:00 08/19/19 20:59 07/20/19 20:54 Hydralazine HCl (Apresoline) 25 mg Q6H PRN ORAL SBP > 180mmHg 07/20/19 15:00 08/19/19 14:59 Hydralazine HCl (Apresoline) 50 mg EVERY 8 HOURS ORAL 07/20/19 14:00 08/19/19 13:59 07/20/19 20:55 Hydromorphone HCl (Dilaudid) 1 mg Q4H PRN IVP Severe Pain (Pain Scale 7-10) 07/20/19 14:00 07/27/19 13:59 07/21/19 05:49 Levothyroxine Sodium (Synthroid) 100 mcg DAILY@0630 ORAL 07/21/19 06:30 08/20/19 06:29 07/21/19 05:49 Lisinopril (Prinivil) 20 mg BID ORAL 07/20/19 18:00 08/19/19 17:59 07/20/19 18:25 Metoprolol Succinate (Toprol XL) 25 mg DAILY ORAL 07/20/19 15:00 08/19/19 14:59 Ondansetron HCl (Zofran) 4 mg Q6H PRN IVP Nausea & Vomiting 07/20/19 15:00 08/19/19 14:59 Pantoprazole (Protonix) 40 mg DAILY ORAL 07/21/19 09:00 08/20/19 08:59 Piperacillin Sod/ Tazobactam Sod 3.375 gm/Sodium Chloride 110 ml @ 27.5 mls/hr EVERY 8 HOURS IVPB 07/20/19 22:00 07/25/19 21:59 07/21/19 05:49 Vancomycin HCl (Vanco rx to dose) 1 ea DAILY PRN MISC Per rx protocol 07/20/19 15:00 08/19/19 14:59 Vancomycin HCl 1 gm/Dextrose 275 ml @ 183.708 mls/hr Q24H IVPB 07/21/19 18:00 07/26/19 17:59 Hany Hampton MD Jul 21, 2019 08:20
[2019-07-21] MEDS: Lisinopril 20mg tab ORAL SCH ×2 (08:48→17:21)
[2019-07-21] MEDS: Doxycycline Monohydrate 100mg ORAL SCH ×2 (08:48→21:42)
[2019-07-21] MEDS: Aspirin EC 81mg tab ORAL SCH (08:49)
[2019-07-21] MEDS: Metoprolol Succinate XL 25mg tab ORAL SCH (08:49)
[2019-07-21] MEDS ORDERED: Omnipaue 350mg/ml 100ml vial INJ PRN (09:15)
--- NOTE | 2019-07-21 09:37 | NUR ---
RADIOLOGY DEPT., ABDOMEN X-RAY DONE.-P.DYE
--- NOTE | 2019-07-21 09:50 | Diagnostic Imaging Report ---
Indication: Abdominal pain Technique: Supine view of the abdomen Comparison: 12/25/2006 Findings: Unremarkable bowel gas pattern. Patient is status post lumbosacral spinal fusion surgery and posterior decompression. Is a new finding. There is an inferior vena cava filter again demonstrated. Extensive pulmonary parenchymal disease is seen at both lung bases. Pacemaker wires are seen in the heart. The heart is enlarged. Impression: Findings as noted. No acute process
--- NOTE | 2019-07-21 11:33 | NUR ---
CASE MANAGEMENT:REVIEW 79 YR OLD FEMALE BIBA FROM [facility] CC; SUDDEN SOB. SATS 76% ON RA...PLACED ON 15L NON REBREATHER SI: DIFFUSE PNEUMONIA. CHF EXACERBATION 98.4 68 31 166/80 100% ON RA BNP+2125 IS: DUONEB HHN IV LASIX IV ZOSYN CHEST XRAY : TO TELEMETRY DCP: FROM [facility]
[2019-07-21 12:00] VITALS: BP 119/69
--- NOTE | 2019-07-21 13:02 | NUR ---
ST NOTES: REFERRED FOR SWALLOW EVALUATION BY DR GARZA, SEE REPORT. DYSPHAGIA RISK FACTORS FOR THIS 79 Y.O.F.: ACUTE ISSUES: SOB, RESP DISTRESS, MULTIFOCAL PNA VERSUS CHF EXACERBATION H/O COPD, PULMONARY FIBROSIS INTERSTITIAL DZ, HTN, CARDIAC, PACEMAKER, HYPOTHYROIDISM, MUSCLE WEAKNESS. PER POLST OK FOR TRIAL TF IF NEEDS SEEN AT [facility] [place] PRIOR VISITS FOR DYSPNEA (3X AND LAST TIME MARCH 2018) AT SNF ON A BRITTANY [facility] SOFT CHOPPED AND THIN LIQUID DIET NOW ON CARDIAC [facility] SOFT CHOPPED AND THIN LIQUID DIET WITH 75% INTAKE PER RN, NO OVERT ASP WITH MEDS/MEALS PER PATIENT, SHE SOMETIMES COUGHS ON WATER PATIENT IS ALERT AND ABLE TO EXPRESS BASIC NEEDS. SHE IS HAVING LUNCH NOW AND DOES NOT LIKE HER FOOD CHOPPED. SHE SAID SHE NEVER HAD A MOD BARIUM SWALLOW STUDY BUT SHE WAS ASSESSED BEFORE FOR SWALLOWING SKILLS AND AT ONE TIME SHE WAS ON NECTAR THICK LIQUIDS (WHICH SHE DISLIKES). INITIAL IMPRESSIONS S/S OF AT LEAST A MILD OROPHARYNGEAL DYSPHAGIA WITH MILD OVERALL INCREASE IN TRANSIT TIMES. GROSSLY FUNCTIONAL OROMOTOR SKILLS GIVEN THIN LIQUIDS VIA STRAW SEQUENTIAL SIP, PATIENT NEEDED TO STOP AND BREATHE AFTER 5 SIPS. NO OVERT ASPIRATION (BUT SHE ADMITS SHE COUGHS SOMETIMES ON THIN LIQUIDS). RESP RATE WENT UP SLIGHTLY FROM 18 TO 20 AND REDUCED TO 18 AFTER A REST (WHILE ON 3 LITERS 02 NC). GIVEN PUREED TSP, TENDS TO CHEW THE BOLUS UNNECESSARILY FOR 5 SECONDS AND TRIGGERS SWALLOW WITH FAIR HYOLARYNGEAL EXCURSION, NO ORAL RESIDUE, NO OVERT ASPIRATION. SHE IS ON CHOPPED FOOD AND REQUIRED ADDITIONAL TIME TO CHEW (7 SECONDS) THEN SWALLOWED W/O ORAL RESIDUE NOR OVERT ASPIRATION. MAY SILENT ASPIRATION RISK DUE TO RESPIRATORY INCOORDINATION WITH EATING/DRINKING AND COPD DX FAIR INTAKE ON CURRENT DIET RECOMMENDATIONS: COMPLETE MOD BARIUM SWALLOW STUDY MBSS TO FURTHER ASSESS SWALLOW, DETERMINE SILENT ASP RISK/ETIOLOGY, AND ATTEMPT TRIAL TX IF PO CONTINUES FOR QUALITY OF LIFE, CONSIDER CONTINUING WITH CURRENT [facility] SOFT CHOPPED DIET AND THIN LIQUIDS (ONLY ONE SIP AT A TIME REST IF SOB) AND USE OTHER POSTED ASPIRATION PRECAUTIONS (SUPERVISION PRN - PT SELF-FEEDS) DIET TYPE PER RD (NOW ON CARDIAC WAS ON BRITTANY AT [facility]) SKILLED DYSPHAGIA MANAGEMENT AND TX, MEAL OBSERVATIONS, AND HAVE HER COMPLETE THE EAT-10 QUESTIONNAIRE. [employer] EVAL/TX IF NEEDS Addendum: 07/21/19 at 1317 by RUDOLPH AWAD UPDATES: CORRECTION, PT DID COUGH SHORTLY AFTER SWALLOWING PUREED BUT ? IF RELATED TO PO SINCE SHE HAS A SPONTANEOUS COUGH W/O PO INTAKE AT TIMES EDENTULOUS AND UPPER DENTURES AT [facility] (SHE MAY CALL TO HAVE DIET UPGRADE TO SOFT BUT MUST BE SUPERVISED FOR MEALS)
[2019-07-21 16:00] VITALS: BP 114/60
--- NOTE | 2019-07-21 16:18 | Diagnostic Imaging Report ---
ndication: Shortness of breath Technique: IV administration nonionic contrast. Spiral acquisitions obtained from the lung bases to the lung apices. Multiplanar and 3-D reconstructions were generated. Total dose length product 500 mGycm. CTDIvol(s) 26, 26, 32, 166, 12 mGy. Dose reduction achieved using automated exposure control Comparison: 12/02/2011 Findings: Apparent extremely sluggish flow results in suboptimal pulmonary arterial opacification. While dense contrast is seen in the central pulmonary arteries, there are subtle filling defects which probably represent incomplete contrast opacification rather than emboli. The basilar pulmonary arteries are poorly opacified, and filling defects within them cannot be excluded. The right and left pulmonary arteries are also dilated, each measuring 3 cm in diameter. The main pulmonary artery is markedly dilated, measuring 4.7 cm in diameter. The heart is markedly enlarged, but there is no evidence of isolated right ventricular dilatation. Reflux of contrast into the inferior vena cava and hepatic veins is noted. There is right-sided aortic arch and right-sided descending thoracic aorta. There is what is probably mirror image branching anatomy with a replaced left subclavian artery. No other situs abnormality is demonstrated. The ascending thoracic aorta and aortic arch are ectatic but not frankly aneurysmal, each measuring 35 mm in diameter. Lung window images demonstrate extensive interstitial and airspace disease. This is predominantly manifested as bronchiectasis, honeycombing, and confluent opacities. While the confluent opacities could represent an area of edema or infiltrate, suspect that these represent confluent scarring. No definite pleural effusions are demonstrated. There is a pacemaker in place. No pericardial effusion. No mediastinal or hilar mass or adenopathy. There is diffuse edema of the mediastinal fat. No axillary or chest wall mass or adenopathy demonstrated. There is also some edema of the subcutaneous fat. Included upper abdominal anatomy is remarkable for the presence of a calcification within the spleen. The left adrenal is less well-demonstrated than previously, appears to be diffusely bulky, as before Impression: Suboptimal pulmonary arterial opacification, suspect on the basis of sluggish flow due to heart failure. Subtle filling defects within the right main and lower lobe pulmonary arteries probably represent flow artifacts related to incompletely opacified blood, but the possibility that these represent emboli cannot completely excluded. Extensive pulmonary parenchymal disease, progressive since 12/02/2011. Presence of extensive honeycombing and bronchiectasis indicates this mostly if not exclusively represents end-stage pulmonary fibrosis. However, some of the confluent opacities could represent areas of pulmonary edema or infiltrate Marked cardiomegaly Evidence of right heart failure with extensive reflux of contrast into the inferior vena cava and hepatic veins Arch dilatation of the main pulmonary artery, indicative of pulmonary arterial hypertension. No isolated right ventricular dilatation. Right-sided aortic arch and descending thoracic aorta, with what is probably mirror image branching anatomy with an apparent left subclavian artery. No other situs abnormality demonstrated Pacemaker Diffusely bulky left adrenal without discrete mass, also evident previously Incidental finding of old granulomatous disease within the spleen Findings discussed by phone with Dr. Nguyen at the time of interpretation The CT scanner at [facility] is accredited by the [employer] and the scans are performed using protocols designed to limit radiation exposure to as low as reasonably achievable to attain images of sufficient resolution adequate for diagnostic evaluation.
[2019-07-21] MEDS ORDERED: Vancomycin 1gm/D5W 275ml IVPB SCH ×2 (18:00)
--- NOTE | 2019-07-21 19:58 | NUR ---
NURSE NOTES: RECEIVED PATIENT RESTING IN BED, NO COMPLAINTS OF PAIN AT THIS TIME. FALL PRECAUTIONS IN PLACE: CALL LIGHT AND BEDSIDE TABLE WITHIN REACH, BED IN LOW POSITION AND BED ALARM ON. PLAN OF CARE REVIEWED.
--- NOTE | 2019-07-21 19:58 | NUR ---
HAND-OFF: Report given to Paramjit Cabral. Patient stable. Plan of care endorsed.
[2019-07-21 20:00] VITALS: BP 104/55
[2019-07-21] MEDS: Enoxaparin Sodium 300mg/3ml vial SUBQ SCH (21:54)
[2019-07-22] VITALS (7 sets, daily range): BP systolic 101–146; BP diastolic 52–72
[2019-07-22] MEDS: HydrALAZINE 50mg tab ORAL SCH ×3 (06:00→21:57)
[2019-07-22] MEDS: Piperacillin/Tazobactam 3.375 GM in NS 110 ML IVPB SCH ×3 (06:01→21:58)
--- NOTE | 2019-07-22 06:54 | General Progress Note ---
Assessment/Plan Problem List: (1) COPD (chronic obstructive pulmonary disease) ICD Codes: J44.9 - Chronic obstructive pulmonary disease, unspecified SNOMED: 78256951 (2) DVT (deep venous thrombosis) ICD Codes: I82.409 - Acute embolism and thrombosis of unspecified deep veins of unspecified lower extremity SNOMED: 294768830 (3) HTN (hypertension) ICD Codes: I10 - Essential (primary) hypertension SNOMED: 38186456 (4) Pacemaker ICD Codes: Z95.0 - Presence of cardiac pacemaker SNOMED: 884225432 (5) Pneumonia ICD Codes: J18.9 - Pneumonia, unspecified organism SNOMED: 001013639, 44063030099348 (6) Acute exacerbation of CHF (congestive heart failure) ICD Codes: I50.9 - Heart failure, unspecified SNOMED: 291994721, 95238924562292 (7) Dyspnea ICD Codes: R06.00 - Dyspnea, unspecified SNOMED: 403852433 (8) SOB (shortness of breath) ICD Codes: R06.02 - Shortness of breath SNOMED: 997078064 Status: stable Assessment/Plan: diuresis iv abx follow up cultures steroids resp rx check echo Subjective ROS Limited/Unobtainable: No Constitutional: Reports: malaise, weakness HEENT: Reports: no symptoms Cardiovascular: Reports: no symptoms Respiratory: Reports: cough, shortness of breath Gastrointestinal/Abdominal: Reports: no symptoms Genitourinary: Reports: no symptoms Neurologic/Psychiatric: Reports: no symptoms Endocrine: Reports: no symptoms Hematologic/Lymphatic: Reports: no symptoms Allergies: Coded Allergies: No Known Allergies (Verified , 11/17/06) All Systems: reviewed and negative except above Subjective no events. remains sob. CT d/w - shows chf, severe fibrosis/scarring but no PE. Objective Last 24 Hour Vital Signs Date Time Temp Pulse Resp B/P (MAP) Pulse Ox O2 Delivery O2 Flow Rate FiO2 07/22/19 06:00 112/62 07/22/19 06:00 112/62 07/22/19 04:00 97.6 66 18 112/62 (79) 96 07/22/19 04:00 60 07/22/19 00:27 109/64 07/22/19 00:00 97.8 64 19 109/59 (76) 97 07/22/19 00:00 60 07/21/19 21:43 104/55 07/21/19 21:00 Nasal Cannula 3.0 07/21/19 20:00 97.3 61 18 104/55 (71) 97 07/21/19 20:00 60 07/21/19 17:34 114/60 07/21/19 17:21 114/60 07/21/19 16:00 62 07/21/19 16:00 97.2 63 18 114/60 (78) 96 07/21/19 14:42 117/60 07/21/19 12:18 119/69 07/21/19 12:00 64 07/21/19 12:00 97.6 66 20 119/69 (86) 95 07/21/19 09:00 Nasal Cannula 3.0 07/21/19 08:49 67 118/68 07/21/19 08:48 118/68 07/21/19 08:00 97.8 67 18 118/68 (85) 97 07/21/19 08:00 69 Intake and Output 07/21/19 07/22/19 19:00 07:00 Intake Total 360 ml 350.0 ml Output Total 750 ml Balance -390 ml 350.0 ml Intake Oral 360 ml 240 ml IV Total 110.0 ml Output Urine Total 750 ml # Voids 1 2 Height (Feet): 5 Height (Inches): 4.00 Weight (Pounds): 153 General Appearance: WD/WN, alert Neck: supple Cardiovascular: normal rate Respiratory/Chest: crackles/rales, rhonchi - bilaterally Abdomen: normal bowel sounds, non tender, soft, no organomegaly Edema: mild edema Neurologic: blending coordinator II-XII grossly normal, alert, oriented x 3, responsive Harjit Nguyen MD Jul 22, 2019 06:54
--- NOTE | 2019-07-22 07:15 | NUR ---
NURSE NOTES: I received the patient resting in bed. Patient alert and oriented x4. Patient does not display any signs of distress or SOB. Patient able to make needs known. Bed in the lowest position and call light within reach.
--- NOTE | 2019-07-22 07:23 | NUR ---
HAND-OFF: Report given to Ann ALVAREZ RN. PATIENT ASLEEP, NO SIGNS OF DISTRESS NOTED.
[2019-07-22 07:35] LABS: HEMATOCRIT 40.8 % (37.0-47.0); HEMOGLOBIN 13.1 G/DL (12.0-16.0); MEAN CORPUSCULAR VOLUME 95 FL (80-99); PLATELET COUNT 201 K/UL (150-450); RED BLOOD COUNT 4.31 M/UL (4.20-5.40); RED CELL DISTRIBUTION WIDTH 12.6 % (11.6-14.8); WHITE BLOOD COUNT 3.8 K/UL (4.8-10.8)
[2019-07-22 07:56] LABS: ALANINE AMINOTRANSFERASE 13 U/L (12-78); ALBUMIN 2.6 G/DL (3.4-5.0); ALBUMIN/GLOBULIN RATIO 0.5 (1.0-2.7); ALKALINE PHOSPHATASE 70 U/L (46-116); ANION GAP 4 mmol/L (5-15); ASPARTATE AMINO TRANSFERASE 18 U/L (15-37); BILIRUBIN,TOTAL 0.7 MG/DL (0.2-1.0); BLOOD UREA NITROGEN 17 mg/dL (7-18); CALCIUM 9.1 MG/DL (8.5-10.1); CARBON DIOXIDE 39 MMOL/L (21-32); CHLORIDE 100 MMOL/L (98-107); CREATININE 0.9 MG/DL (0.55-1.30); POTASSIUM 3.9 MMOL/L (3.5-5.1); SODIUM 142 MMOL/L (136-145)
[2019-07-22] MEDS: Aspirin EC 81mg tab ORAL SCH (08:11)
[2019-07-22] MEDS: Doxycycline Monohydrate 100mg ORAL SCH ×2 (08:12→22:00)
[2019-07-22] MEDS: Lisinopril 20mg tab ORAL SCH ×2 (08:12→18:00)
[2019-07-22] MEDS: Solu-MEDROL 40mg Inj IVP SCH ×3 (08:12→21:58)
[2019-07-22] MEDS: Metoprolol Succinate XL 25mg tab ORAL SCH (08:15)
[2019-07-22] MEDS: Enoxaparin Sodium 300mg/3ml vial SUBQ SCH ×2 (10:07→22:00)
--- NOTE | 2019-07-22 10:34 | Pulmonology Progress Note ---
Assessment/Plan Assessment/Plan Pulmonary Progress Note HPI Patient is a 79yo woman with previous history on Congestive heart Failure, Hypertension, Chronic Obstructive Pulmonary Disease, Interstitial pulmonary disease, previous DVT - status post IVC filter, Hypothyroidism. Patient admitted c/o SOB since yesterday, got worse today. Denies Chest pain, fever, but does report cough. No hemoptysis. Noted to have patchy infiltrates in the ED - started on IV antibiotics, significantly elevated NPA Allergies: No Known Allergies Past Medical History: Congestive heart Failure, Hypertension, PPM, Chronic Obstructive Pulmonary Disease, Interstitial pulmonary disease, previous DVT - status post IVC filter, Hypothyroidism, Muscular weakness, previous intestinal obstruction All Other Systems: negative except mentioned in HPI Physical Exam Vital Signs Noted General Appearance: no apparent distress, alert, non-toxic Head: normocephalic Eyes: bilateral eye normal inspection, bilateral eye PERRL, bilateral eye EOMI ENT: normal ENT inspection, hearing grossly normal, normal pharynx, no angioedema, normal voice, moist mucus membranes Neck: moist mm, no LN Respiratory: chest non-tender, decreased breath sounds, rhonchi, chest symmetrical, palpation of chest normal Cardiovascular: normal peripheral pulses, regular rate, HS1, HS2 normal, rhythm , JVD, edema noted Gastrointestinal: normal inspection, non tender, soft, no mass, no guarding, no rebound Rectal: deferred Genitourinary: normal inspection, no CVA tenderness Musculoskeletal: back normal, gait/station normal, normal range of motion, non- tender, no calf tenderness Neurologic: alert, responsive, manager clinical applications normal as tested, motor strength/tone normal , sensory intact, speech normal Impression: Pneumonia Congestive heart Failure Hypertension Chronic Obstructive Pulmonary Disease Interstitial pulmonary disease Previous DVT - status post IVC filter Hypothyroidism Plan: IV AB Diuresis [employer] meds O2 PRN HHN Monitor labs R/o DVT/PE ST eval of swallow Aspiration precautions EKG: NSR ST Segments: no acute changes Chest X-Ray: no consolidation, no effusion, no pneumothorax, no acute cardiopulmonary disease CT Chest: Impression: Suboptimal pulmonary arterial opacification, suspect on the basis of sluggish flow due to heart failure. Subtle filling defects within the right main and lower lobe pulmonary arteries probably represent flow artifacts related to incompletely opacified blood, but the possibility that these represent emboli cannot completely excluded. Extensive pulmonary parenchymal disease, progressive since 12/02/2011. Presence of extensive honeycombing and bronchiectasis indicates this mostly if not exclusively represents end-stage pulmonary fibrosis. However, some of the confluent opacities could represent areas of pulmonary edema or infiltrate Marked cardiomegaly Evidence of right heart failure with extensive reflux of contrast into the inferior vena cava and hepatic veins Arch dilatation of the main pulmonary artery, indicative of pulmonary arterial hypertension. No isolated right ventricular dilatation. Right-sided aortic arch and descending thoracic aorta, with what is probably mirror image branching anatomy with an apparent left subclavian artery. No other situs abnormality demonstrated Pacemaker Diffusely bulky left adrenal without discrete mass, also evident previously Incidental finding of old granulomatous disease within the spleen Subjective ROS Limited/Unobtainable: No Allergies: Coded Allergies: No Known Allergies (Verified , 11/17/06) Objective Last 24 Hour Vital Signs Date Time Temp Pulse Resp B/P (MAP) Pulse Ox O2 Delivery O2 Flow Rate FiO2 07/22/19 08:15 72 146/72 07/22/19 08:12 146/72 07/22/19 08:00 97.9 72 20 146/72 (96) 92 07/22/19 06:00 112/62 07/22/19 06:00 112/62 07/22/19 04:00 97.6 66 18 112/62 (79) 96 07/22/19 04:00 60 07/22/19 00:27 109/64 07/22/19 00:00 97.8 64 19 109/59 (76) 97 07/22/19 00:00 60 07/21/19 21:43 104/55 07/21/19 21:00 Nasal Cannula 3.0 07/21/19 20:00 97.3 61 18 104/55 (71) 97 07/21/19 20:00 60 07/21/19 17:34 114/60 07/21/19 17:21 114/60 07/21/19 16:00 62 07/21/19 16:00 97.2 63 18 114/60 (78) 96 07/21/19 14:42 117/60 07/21/19 12:18 119/69 07/21/19 12:00 64 07/21/19 12:00 97.6 66 20 119/69 (86) 95 Intake and Output 07/21/19 07/22/19 19:00 07:00 Intake Total 360 ml 350.0 ml Output Total 750 ml Balance -390 ml 350.0 ml Intake Oral 360 ml 240 ml IV Total 110.0 ml Output Urine Total 750 ml # Voids 1 2 Microbiology Date/Time Source Procedure Growth Status 07/20/19 11:10 Blood Blood Culture - Preliminary NO GROWTH AFTER 24 HOURS Resulted 07/20/19 11:10 Blood Blood Culture - Preliminary NO GROWTH AFTER 24 HOURS Resulted 07/20/19 14:00 Nasal Nares MRSA Culture - Final Staphylococcus Aureus - Mrsa Complete 07/20/19 14:00 Rectum - Final NO CARBAPENEM-RESISTANT ENTEROBACTERI... Complete 07/20/19 14:00 Rectum VRE Culture - Final NO VANCOMYCIN RESISTANT ENTEROCOCCUS ... Complete Laboratory Tests 07/22/19 05:46: White Blood Count 3.8L, Red Blood Count 4.31, Hemoglobin 13.1, Hematocrit 40.8, Mean Corpuscular Volume 95, Mean Corpuscular Hemoglobin 30.5, Mean Corpuscular Hemoglobin Concent 32.2, Red Cell Distribution Width 12.6, Platelet Count 201, Mean Platelet Volume 7.6, Neutrophils (%) (Auto) , Lymphocytes (%) (Auto) , Monocytes (%) (Auto) , Eosinophils (%) (Auto) , Basophils (%) (Auto) , Differential Total Cells Counted 100, Neutrophils % (Manual) 47, Lymphocytes % ( Manual) 39, Monocytes % (Manual) 8, Eosinophils % (Manual) 6H, Basophils % ( Manual) 0, Band Neutrophils 0, Platelet Estimate Adequate, Platelet Morphology Normal, Red Blood Cell Morphology Normal, Sodium Level 142, Potassium Level 3.9 , Chloride Level 100, Carbon Dioxide Level 39H, Anion Gap 4L, Blood Urea Nitrogen 17, Creatinine 0.9, Estimat Glomerular Filtration Rate , Glucose Level 71L, Calcium Level 9.1, Magnesium Level 1.7L, Total Bilirubin 0.7, Aspartate Amino Transf (AST/SGOT) 18, Alanine Aminotransferase (ALT/SGPT) 13, Alkaline Phosphatase 70, Total Protein 7.9, Albumin 2.6L, Globulin 5.3, Albumin/Globulin Ratio 0.5L Current Medications Medications (Trade) Dose Ordered Sig/Roseline Route PRN Reason Start Time Stop Time Status Last Admin Dose Admin Acetaminophen/ Hydrocodone Bitart ([place] 5/325) 1 tab Q4H PRN ORAL Moderate Pain (Pain Scale 4-6) 07/20/19 14:00 07/27/19 13:59 07/20/19 18:52 Aspirin (Ecotrin) 81 mg DAILY ORAL 07/21/19 09:00 08/20/19 08:59 07/22/19 08:11 Clonidine HCl (Catapres Tab) 0.1 mg EVERY 6 HOURS ORAL 07/20/19 14:00 08/19/19 13:59 07/22/19 06:00 Doxycycline Monohydrate (Doxycycline Monohydrate) 100 mg EVERY 12 HOURS ORAL 07/20/19 21:00 07/27/19 20:59 07/22/19 08:12 Enoxaparin Sodium (Lovenox) 70 mg Q12HR SUBQ 07/21/19 21:00 08/20/19 20:59 07/22/19 10:07 Furosemide (Lasix) 40 mg EVERY 12 HOURS IV 07/20/19 21:00 08/19/19 20:59 07/22/19 08:12 Hydralazine HCl (Apresoline) 25 mg Q6H PRN ORAL SBP > 180mmHg 07/20/19 15:00 08/19/19 14:59 Hydralazine HCl (Apresoline) 50 mg EVERY 8 HOURS ORAL 07/20/19 14:00 08/19/19 13:59 07/21/19 21:43 Hydromorphone HCl (Dilaudid) 1 mg Q4H PRN IVP Severe Pain (Pain Scale 7-10) 07/20/19 14:00 07/27/19 13:59 07/21/19 21:49 Iohexol (Omnipaque) 100 mg NOW PRN INJ Radiology Procedure 07/21/19 09:15 07/23/19 09:13 Levothyroxine Sodium (Synthroid) 100 mcg DAILY@0630 ORAL 07/21/19 06:30 08/20/19 06:29 07/22/19 06:00 Lisinopril (Prinivil) 20 mg BID ORAL 07/20/19 18:00 08/19/19 17:59 07/22/19 08:12 Methylprednisolone Sodium Succinate (Solu-MEDROL) 40 mg EVERY 8 HOURS IVP 07/22/19 07:00 08/21/19 06:59 07/22/19 08:12 Metoprolol Succinate (Toprol XL) 25 mg DAILY ORAL 07/20/19 15:00 08/19/19 14:59 07/22/19 08:15 Ondansetron HCl (Zofran) 4 mg Q6H PRN IVP Nausea & Vomiting 07/20/19 15:00 08/19/19 14:59 Pantoprazole (Protonix) 40 mg DAILY ORAL 07/21/19 09:00 08/20/19 08:59 07/22/19 08:11 Piperacillin Sod/ Tazobactam Sod 3.375 gm/Sodium Chloride 110 ml @ 27.5 mls/hr EVERY 8 HOURS IVPB 07/20/19 22:00 07/25/19 21:59 07/22/19 06:01 Vancomycin HCl (Vanco rx to dose) 1 ea DAILY PRN MISC Per rx protocol 07/20/19 15:00 08/19/19 14:59 Vancomycin HCl 1 gm/Dextrose 275 ml @ 183.708 mls/hr Q24H IVPB 07/21/19 18:00 07/26/19 17:59 07/21/19 17:21 Edvin Velasquez MD Jul 22, 2019 10:34
--- NOTE | 2019-07-22 11:54 | History and Physical Report ---
DATE OF ADMISSION: 07/20/2019 CHIEF COMPLAINT: Shortness of breath, COPD exacerbation, pneumonia, possible PE. HISTORY OF PRESENT ILLNESS: The patient is a 79-year-old female, well known to me. She has a history of severe COPD, hypertension, chronic respiratory failure. She has a history of GI bleed as well as an IVC filter. She has a pacemaker, presented from alf facility with complaint of shortness of breath. According to the patient, she has had worsening cough, congestion, and shortness of breath for the last several days. On evaluation in the emergency room, her white count was normal. She had x-ray evidence of pneumonia. She also had a VQ scan that was suspicious for PE. The patient does have a prior history of DVT. At that time, she was anticoagulated and had a massive GI bleed. The patient has been started on steroids and breathing treatments and antibiotics. She is now admitted for further evaluation and care. PAST MEDICAL HISTORY: As above. PAST SURGICAL HISTORY: Includes back surgery. CURRENT MEDICATIONS: Reconciled and reviewed. ALLERGIES: None. FAMILY HISTORY: None. SOCIAL HISTORY: The patient is a prior smoker. No alcohol. No drugs. REVIEW OF SYSTEMS: GENERAL: No fever or chills. HEENT: No headaches or visual changes. CARDIOPULMONARY: No chest pain. Positive shortness of breath, cough, and congestion. GASTROINTESTINAL: No nausea or vomiting. GENITOURINARY: No urgency or frequency. MUSCULOSKELETAL: No joint pain or swelling. NEUROLOGIC: No evidence of seizures. PHYSICAL EXAMINATION: VITAL SIGNS: Temperature 98 degrees, pulse 61, respirations 17, and blood pressure 112/63. GENERAL: The patient is well-developed, no apparent distress. HEART: Regular rate and rhythm. LUNGS: Significant for scattered rhonchi and rales. ABDOMEN: Soft, nontender, and nondistended. EXTREMITIES: Without clubbing, cyanosis, or edema. LABORATORY AND DIAGNOSTIC DATA: White count 4, hemoglobin 14, hematocrit 45, and platelets 202. Sodium 145, potassium 4.1, chloride 105, bicarb 37, BUN 13, creatinine 0.7. CT scan shows bilateral scattered perfusion ventilation defect, intermediate probability for PE. Chest x-ray showed diffuse interstitial airspace opacities. ASSESSMENT: This is an unfortunate female admitted with complaints of shortness of breath secondary to COPD exacerbation, cannot rule out PE. She does have a filter. She was unable to be anticoagulated because of prior history of GI bleed. She has hypertension, congestive heart failure, and conduction system disease. PLAN: 1. Cautious Lovenox and broad-spectrum antibiotics. 2. Intravenous steroids. 3. Respiratory treatments. 4. Order CT angio of the chest to assess for PE. The patient states that she does have PE despite her IVC filter, last GI to re-evaluate the patient for possible resumption of anticoagulation. [id number] has been discussed with the patient. Harjit Ngueyn M.D. DR: YUMIKO JOB#: [id number] CC:
[2019-07-22] MEDS: HYDROmorphone 1mg/ml Carpuject IVP PRN ×2 (12:22→23:11)
--- NOTE | 2019-07-22 19:00 | NUR ---
DIOGENES PTPhoebe FROM NURSE ALVAREZ. PT.DENIES CHEST PAIN ,DENIES SOB.
--- NOTE | 2019-07-22 19:03 | NUR ---
HAND-OFF: Report given to TABITHA Yan.
--- NOTE | 2019-07-22 19:15 | Consultation ---
DATE OF CONSULTATION: 07/22/2019 INFECTIOUS DISEASES CONSULTATION This consult is for coverage of Dr. Li. ATTENDING PHYSICIAN: Harjit Nguyen M.D. REASON FOR CONSULTATION: Pneumonia, COPD, bronchiectasis. HISTORY OF PRESENT ILLNESS: This is a 79-year-old female admitted on July 20, 2019 from a nursing facility because of increase shortness of breath and cough. The patient states that she had a productive cough. The patient has history of COPD. PAST MEDICAL HISTORY: Significant for COPD, pulmonary fibrosis, DVT of legs status post IVC filter placement, hypothyroidism, status post pacemaker, diastolic CHF. ALLERGIES: No known drug allergies. MEDICATIONS: Methylprednisone, enoxaparin, vancomycin, aspirin, Protonix, levothyroxine, Zosyn, Lasix, doxycycline, lisinopril, metoprolol, hydralazine, clonidine, [place], hydromorphone. SOCIAL HISTORY: long term resident. History of smoking in the past. No alcohol or drug abuse. She is a . REVIEW OF SYSTEMS: No fever. No chills. Productive cough, shortness of breath. No nausea. No vomiting. No diarrhea. The patient has dysuria that resolved. PHYSICAL EXAMINATION: VITAL SIGNS: Temperature 98.2, pulse 60, blood pressure 135/68. GENERAL APPEARANCE: No acute distress. HEAD AND NECK: Lapel conjunctiva. No teeth. HEART: Normal rate, pacemaker. LUNGS: Clear. Decreased sounds. ABDOMEN: Soft and nontender. EXTREMITIES: No significant edema. LABORATORY AND DIAGNOSTIC DATA: Sodium 142, potassium 3.9, chloride 100, , BUN 17, creatinine 0.9 glucose is 71. WBC 3.8, hemoglobin 13.1, hematocrit 40.8, and platelets is 201. CT angiogram of chest was done to rule out pulmonary emboli that showed pulmonary fibrosis, bronchiectasis, pacemaker, pulmonary edema or infiltrate. IMPRESSION: 1. Pneumonia. 2. COPD. 3. Bronchiectasis. 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 Diastolic CHF. 6. Hypothyroidism. 7. Pulmonary fibrosis. RECOMMENDATION: We will continue with Zosyn and doxycycline. Discontinue IV vancomycin. We will follow up the cultures. At the end of my exam, I thank Dr. Nguyen for involving me in the care of this patient. Yazan Braden M.D. DR: Xavier JOB#: [id number] CC: FOUZIA
[2019-07-23] VITALS: BP 100/51
[2019-07-23 04:00] VITALS: BP 134/67
[2019-07-23] MEDS: Solu-MEDROL 40mg Inj IVP SCH ×2 (06:08→22:23)
[2019-07-23] MEDS: Piperacillin/Tazobactam 3.375 GM in NS 110 ML IVPB SCH ×3 (06:09→22:35)
[2019-07-23] MEDS: HydrALAZINE 50mg tab ORAL SCH ×3 (06:10→22:29)
[2019-07-23] MEDS: HYDROmorphone 1mg/ml Carpuject IVP PRN ×3 (06:19→22:59)
--- NOTE | 2019-07-23 07:02 | NUR ---
HAND-OFF: Report given to nurse ABDUL.
--- NOTE | 2019-07-23 07:15 | NUR ---
NURSE NOTES: Received report from Farrah/RN, Patient is awake lying semi-madrid's, resting comfortably. A/O x4. On Nasal canula 2L, breathing unlabored and even. No acute distress/SOB noted at this time. Able to make needs known. IV site patent, no bleeding or infiltration noted. Encourage to use call light when needed. Bed in low position and locked. bad alarm engaged, side-rails up x3. Call light within reach. Will continue plan of care.
[2019-07-23 08:00] VITALS: BP 129/67
[2019-07-23] MEDS: Doxycycline Monohydrate 100mg ORAL SCH ×2 (09:11→22:23)
[2019-07-23] MEDS: Metoprolol Succinate XL 25mg tab ORAL SCH (09:11)
[2019-07-23] MEDS: Lisinopril 20mg tab ORAL SCH ×2 (09:11→18:00)
[2019-07-23] MEDS: Aspirin EC 81mg tab ORAL SCH (09:11)
[2019-07-23] MEDS: Enoxaparin Sodium 300mg/3ml vial SUBQ SCH ×2 (09:19→22:45)
[2019-07-23 09:20] LABS: BASOPHILS % (AUTO) 0.8 % (0.0-2.0); EOSINOPHILS % (AUTO) 0.3 % (0.0-3.0); HEMATOCRIT 42.8 % (37.0-47.0); HEMOGLOBIN 13.7 G/DL (12.0-16.0); LYMPHOCYTES % (AUTO) 26.1 % (20.0-45.0); MEAN CORPUSCULAR VOLUME 95 FL (80-99); MONOCYTES % (AUTO) 7.1 % (1.0-10.0); NEUTROPHILS % (AUTO) 65.7 % (45.0-75.0); PLATELET COUNT 195 K/UL (150-450); RED BLOOD COUNT 4.52 M/UL (4.20-5.40); RED CELL DISTRIBUTION WIDTH 12.6 % (11.6-14.8); WHITE BLOOD COUNT 4.5 K/UL (4.8-10.8)
[2019-07-23 10:01] LABS: ALANINE AMINOTRANSFERASE 12 U/L (12-78); ALBUMIN 2.8 G/DL (3.4-5.0); ALBUMIN/GLOBULIN RATIO 0.5 (1.0-2.7); ALKALINE PHOSPHATASE 71 U/L (46-116); ANION GAP 6 mmol/L (5-15); ASPARTATE AMINO TRANSFERASE 18 U/L (15-37); BILIRUBIN,TOTAL 0.7 MG/DL (0.2-1.0); BLOOD UREA NITROGEN 29 mg/dL (7-18); CALCIUM 9.3 MG/DL (8.5-10.1); CARBON DIOXIDE 37 MMOL/L (21-32); CHLORIDE 99 MMOL/L (98-107); POTASSIUM 3.8 MMOL/L (3.5-5.1); SODIUM 142 MMOL/L (136-145)
[2019-07-23 12:00] VITALS: BP 119/61
--- NOTE | 2019-07-23 12:14 | General Progress Note ---
Assessment/Plan Problem List: (1) COPD (chronic obstructive pulmonary disease) ICD Codes: J44.9 - Chronic obstructive pulmonary disease, unspecified SNOMED: 67216031 (2) DVT (deep venous thrombosis) ICD Codes: I82.409 - Acute embolism and thrombosis of unspecified deep veins of unspecified lower extremity SNOMED: 893323674 (3) HTN (hypertension) ICD Codes: I10 - Essential (primary) hypertension SNOMED: 38054875 (4) Pacemaker ICD Codes: Z95.0 - Presence of cardiac pacemaker SNOMED: 495935114 (5) Pneumonia ICD Codes: J18.9 - Pneumonia, unspecified organism SNOMED: 689548740, 24346607208113 (6) Acute exacerbation of CHF (congestive heart failure) ICD Codes: I50.9 - Heart failure, unspecified SNOMED: 694446850, 72476397201151 (7) Dyspnea ICD Codes: R06.00 - Dyspnea, unspecified SNOMED: 348360733 (8) SOB (shortness of breath) ICD Codes: R06.02 - Shortness of breath SNOMED: 011216481 Status: stable Assessment/Plan: diuresis iv abx follow up cultures steroids resp rx o2 cough rx check echo Subjective ROS Limited/Unobtainable: No Constitutional: Reports: weakness HEENT: Reports: no symptoms Cardiovascular: Reports: no symptoms Respiratory: Reports: cough, shortness of breath, SOB with excertion, SOB at rest Gastrointestinal/Abdominal: Reports: no symptoms Genitourinary: Reports: no symptoms Neurologic/Psychiatric: Reports: no symptoms Endocrine: Reports: no symptoms Hematologic/Lymphatic: Reports: anemia Allergies: Coded Allergies: No Known Allergies (Verified , 11/17/06) All Systems: reviewed and negative except above Subjective no events. feels better today. less sob. no chest pain. decreased cough with cough meds. On iv lasix bid and iv abx. pt is ok with full code but doesnt want intermission coordinator intubation Objective Last 24 Hour Vital Signs Date Time Temp Pulse Resp B/P (MAP) Pulse Ox O2 Delivery O2 Flow Rate FiO2 07/23/19 09:11 58 129/67 07/23/19 09:11 129/67 07/23/19 09:00 Nasal Cannula 3.0 07/23/19 08:00 97.5 58 18 129/67 (87) 95 07/23/19 08:00 60 07/23/19 06:10 139/72 07/23/19 04:00 60 07/23/19 04:00 61 18 134/67 (89) 97 07/23/19 00:00 97.6 60 18 100/51 (67) 95 07/23/19 00:00 97/48 07/23/19 00:00 60 07/22/19 23:31 Nasal Cannula 3.0 07/22/19 20:00 98.0 60 18 101/52 (68) 95 07/22/19 20:00 60 07/22/19 18:22 62 107/56 (73) 07/22/19 18:00 107/56 07/22/19 18:00 107/56 07/22/19 16:00 97.3 60 22 109/57 (74) 97 07/22/19 15:48 60 07/22/19 14:00 90/59 07/22/19 12:52 98.2 07/22/19 12:21 135/68 Intake and Output 07/22/19 07/23/19 19:00 07:00 Intake Total 322.5 ml 100 ml Balance 322.5 ml 100 ml Intake Oral 240 ml 100 ml IV Total 82.5 ml # Voids 2 1 Laboratory Tests 07/23/19 08:14: White Blood Count 4.5L, Red Blood Count 4.52, Hemoglobin 13.7, Hematocrit 42.8, Mean Corpuscular Volume 95, Mean Corpuscular Hemoglobin 30.3, Mean Corpuscular Hemoglobin Concent 32.1, Red Cell Distribution Width 12.6, Platelet Count 195, Mean Platelet Volume 7.8, Neutrophils (%) (Auto) 65.7, Lymphocytes (%) (Auto) 26.1, Monocytes (%) (Auto) 7.1, Eosinophils (%) (Auto) 0.3, Basophils (%) (Auto ) 0.8, Sodium Level 142, Potassium Level 3.8, Chloride Level 99, Carbon Dioxide Level 37H, Anion Gap 6, Blood Urea Nitrogen 29H, Creatinine 1.0, Estimat Glomerular Filtration Rate , Glucose Level 83, Calcium Level 9.3, Total Bilirubin 0.7, Aspartate Amino Transf (AST/SGOT) 18, Alanine Aminotransferase ( ALT/SGPT) 12, Alkaline Phosphatase 71, Total Protein 8.6H, Albumin 2.8L, Globulin 5.8, Albumin/Globulin Ratio 0.5L Height (Feet): 5 Height (Inches): 4.00 Weight (Pounds): 153 General Appearance: WD/WN, alert Neck: supple Cardiovascular: regular rhythm Respiratory/Chest: decreased breath sounds Abdomen: normal bowel sounds, non tender, soft, no organomegaly Edema: no edema noted Arm (L), no edema noted Arm (R), no edema noted Leg (L), no edema noted Leg (R), no edema noted Pedal (L), no edema noted Pedal (R), no edema noted Generalized Neurologic: nail professional II-XII grossly normal, alert, oriented x 3 Harjit Nguyen MD Jul 23, 2019 12:14
--- NOTE | 2019-07-23 13:19 | Pulmonology Progress Note ---
Assessment/Plan Assessment/Plan Pulmonary Progress Note HPI Patient is a 79yo woman with previous history on Congestive heart Failure, Hypertension, Chronic Obstructive Pulmonary Disease, Interstitial pulmonary disease, previous DVT - status post IVC filter, Hypothyroidism. Patient admitted c/o SOB since yesterday, got worse today. Denies Chest pain, fever, but does report cough. No hemoptysis. Noted to have patchy infiltrates in the ED - started on IV antibiotics, significantly elevated NPA Allergies: No Known Allergies Past Medical History: Congestive heart Failure, Hypertension, PPM, Chronic Obstructive Pulmonary Disease, Interstitial pulmonary disease, previous DVT - status post IVC filter, Hypothyroidism, Muscular weakness, previous intestinal obstruction All Other Systems: negative except mentioned in HPI Physical Exam Vital Signs Noted General Appearance: no apparent distress, alert, non-toxic Head: normocephalic Eyes: bilateral eye normal inspection, bilateral eye PERRL, bilateral eye EOMI ENT: normal ENT inspection, hearing grossly normal, normal pharynx, no angioedema, normal voice, moist mucus membranes Neck: moist mm, no LN Respiratory: chest non-tender, decreased breath sounds, rhonchi, chest symmetrical, palpation of chest normal Cardiovascular: normal peripheral pulses, regular rate, HS1, HS2 normal, rhythm , JVD, edema noted Gastrointestinal: normal inspection, non tender, soft, no mass, no guarding, no rebound Rectal: deferred Genitourinary: normal inspection, no CVA tenderness Musculoskeletal: back normal, gait/station normal, normal range of motion, non- tender, no calf tenderness Neurologic: alert, responsive, anthropometrist normal as tested, motor strength/tone normal , sensory intact, speech normal Impression: Pneumonia Congestive heart Failure Hypertension Chronic Obstructive Pulmonary Disease Interstitial pulmonary disease Previous DVT - status post IVC filter Hypothyroidism Plan: IV AB 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 Subtle filling defects within the right main and lower lobe pulmonary arteries probably represent flow artifacts related to incompletely opacified blood, but the possibility that these represent emboli cannot completely excluded. Extensive pulmonary parenchymal disease, progressive since 12/02/2011. Presence of extensive honeycombing and bronchiectasis indicates this mostly if not exclusively represents end-stage pulmonary fibrosis. However, some of the confluent opacities could represent areas of pulmonary edema or infiltrate Marked cardiomegaly Evidence of right heart failure with extensive reflux of contrast into the inferior vena cava and hepatic veins Arch dilatation of the main pulmonary artery, indicative of pulmonary arterial hypertension. No isolated right ventricular dilatation. Right-sided aortic arch and descending thoracic aorta, with what is probably mirror image branching anatomy with an apparent left subclavian artery. No other situs abnormality demonstrated Pacemaker Diffusely bulky left adrenal without discrete mass, also evident previously Incidental finding of old granulomatous disease within the spleen Subjective ROS Limited/Unobtainable: No Allergies: Coded Allergies: No Known Allergies (Verified , 11/17/06) Objective Last 24 Hour Vital Signs Date Time Temp Pulse Resp B/P (MAP) Pulse Ox O2 Delivery O2 Flow Rate FiO2 07/23/19 12:00 62 07/23/19 12:00 97.0 60 18 119/61 (80) 95 07/23/19 12:00 119/61 07/23/19 09:11 58 129/67 07/23/19 09:11 129/67 07/23/19 09:00 Nasal Cannula 3.0 07/23/19 08:00 97.5 58 18 129/67 (87) 95 07/23/19 08:00 60 07/23/19 06:10 139/72 07/23/19 04:00 60 07/23/19 04:00 61 18 134/67 (89) 97 07/23/19 00:00 97.6 60 18 100/51 (67) 95 07/23/19 00:00 97/48 07/23/19 00:00 60 07/22/19 23:31 Nasal Cannula 3.0 07/22/19 20:00 98.0 60 18 101/52 (68) 95 07/22/19 20:00 60 07/22/19 18:22 62 107/56 (73) 07/22/19 18:00 107/56 07/22/19 18:00 107/56 07/22/19 16:00 97.3 60 22 109/57 (74) 97 07/22/19 15:48 60 07/22/19 14:00 90/59 Intake and Output 07/22/19 07/23/19 19:00 07:00 Intake Total 322.5 ml 100 ml Balance 322.5 ml 100 ml Intake Oral 240 ml 100 ml IV Total 82.5 ml # Voids 2 1 Microbiology Date/Time Source Procedure Growth Status 07/20/19 14:00 Nasal Nares MRSA Culture - Final Staphylococcus Aureus - Mrsa Complete 07/20/19 14:00 Rectum - Final NO CARBAPENEM-RESISTANT ENTEROBACTERI... Complete 07/20/19 14:00 Rectum VRE Culture - Final NO VANCOMYCIN RESISTANT ENTEROCOCCUS ... Complete Laboratory Tests 07/23/19 08:14: White Blood Count 4.5L, Red Blood Count 4.52, Hemoglobin 13.7, Hematocrit 42.8, Mean Corpuscular Volume 95, Mean Corpuscular Hemoglobin 30.3, Mean Corpuscular Hemoglobin Concent 32.1, Red Cell Distribution Width 12.6, Platelet Count 195, Mean Platelet Volume 7.8, Neutrophils (%) (Auto) 65.7, Lymphocytes (%) (Auto) 26.1, Monocytes (%) (Auto) 7.1, Eosinophils (%) (Auto) 0.3, Basophils (%) (Auto ) 0.8, Sodium Level 142, Potassium Level 3.8, Chloride Level 99, Carbon Dioxide Level 37H, Anion Gap 6, Blood Urea Nitrogen 29H, Creatinine 1.0, Estimat Glomerular Filtration Rate , Glucose Level 83, Calcium Level 9.3, Total Bilirubin 0.7, Aspartate Amino Transf (AST/SGOT) 18, Alanine Aminotransferase ( ALT/SGPT) 12, Alkaline Phosphatase 71, Total Protein 8.6H, Albumin 2.8L, Globulin 5.8, Albumin/Globulin Ratio 0.5L Current Medications Medications (Trade) Dose Ordered Sig/Roseline Route PRN Reason Start Time Stop Time Status Last Admin Dose Admin Acetaminophen/ Hydrocodone Bitart ([place] 5/325) 1 tab Q4H PRN ORAL Moderate Pain (Pain Scale 4-6) 07/20/19 14:00 07/27/19 13:59 07/20/19 18:52 Aspirin (Ecotrin) 81 mg DAILY ORAL 07/21/19 09:00 08/20/19 08:59 07/23/19 09:11 Clonidine HCl (Catapres Tab) 0.1 mg EVERY 6 HOURS ORAL 07/20/19 14:00 08/19/19 13:59 07/22/19 12:21 Doxycycline Monohydrate (Doxycycline Monohydrate) 100 mg EVERY 12 HOURS ORAL 07/20/19 21:00 07/27/19 20:59 07/23/19 09:11 Enoxaparin Sodium (Lovenox) 70 mg Q12HR SUBQ 07/21/19 21:00 08/20/19 20:59 07/23/19 09:19 Furosemide (Lasix) 40 mg DAILY IV 07/24/19 09:00 08/23/19 08:59 Hydralazine HCl (Apresoline) 25 mg Q6H PRN ORAL SBP > 180mmHg 07/20/19 15:00 08/19/19 14:59 Hydralazine HCl (Apresoline) 50 mg EVERY 8 HOURS ORAL 07/20/19 14:00 08/19/19 13:59 07/23/19 06:10 Hydromorphone HCl (Dilaudid) 1 mg Q4H PRN IVP Severe Pain (Pain Scale 7-10) 07/20/19 14:00 07/27/19 13:59 07/23/19 06:19 Levothyroxine Sodium (Synthroid) 100 mcg DAILY@0630 ORAL 07/21/19 06:30 08/20/19 06:29 07/23/19 06:09 Lisinopril (Prinivil) 20 mg BID ORAL 07/20/19 18:00 08/19/19 17:59 07/23/19 09:11 Methylprednisolone Sodium Succinate (Solu-MEDROL) 40 mg EVERY 12 HOURS IVP 07/23/19 21:00 08/22/19 20:59 Metoprolol Succinate (Toprol XL) 25 mg DAILY ORAL 07/20/19 15:00 08/19/19 14:59 07/23/19 09:11 Ondansetron HCl (Zofran) 4 mg Q6H PRN IVP Nausea & Vomiting 07/20/19 15:00 08/19/19 14:59 Pantoprazole (Protonix) 40 mg DAILY ORAL 07/21/19 09:00 08/20/19 08:59 07/23/19 09:11 Piperacillin Sod/ Tazobactam Sod 3.375 gm/Sodium Chloride 110 ml @ 27.5 mls/hr EVERY 8 HOURS IVPB 07/20/19 22:00 07/25/19 21:59 07/23/19 06:09 Edvin Velasquez MD Jul 23, 2019 13:19
--- NOTE | 2019-07-23 15:24 | Infectious Diseases Prog Note ---
Assessment/Plan Assessment/Plan IMPRESSION: 1. Pneumonia. 2. COPD. 3. Bronchiectasis. 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 Diastolic CHF. 6. Hypothyroidism. 7. Pulmonary fibrosis. RECOMMENDATION: We will continue with Zosyn and doxycycline Sputum culture Subjective ROS Limited/Unobtainable: No Constitutional: Reports: anorexia; Denies: fever Respiratory: Reports: shortness of breath, productive cough Gastrointestinal/Abdominal: Reports: no symptoms Genitourinary: Reports: no symptoms Allergies: Coded Allergies: No Known Allergies (Verified , 11/17/06) Objective Vital Signs Last 24 Hour Vital Signs Date Time Temp Pulse Resp B/P (MAP) Pulse Ox O2 Delivery O2 Flow Rate FiO2 07/23/19 13:18 119/61 07/23/19 12:00 62 07/23/19 12:00 97.0 60 18 119/61 (80) 95 07/23/19 12:00 119/61 07/23/19 09:11 58 129/67 07/23/19 09:11 129/67 07/23/19 09:00 Nasal Cannula 3.0 07/23/19 08:00 97.5 58 18 129/67 (87) 95 07/23/19 08:00 60 07/23/19 06:10 139/72 07/23/19 04:00 60 07/23/19 04:00 61 18 134/67 (89) 97 07/23/19 00:00 97.6 60 18 100/51 (67) 95 07/23/19 00:00 97/48 07/23/19 00:00 60 07/22/19 23:31 Nasal Cannula 3.0 07/22/19 20:00 98.0 60 18 101/52 (68) 95 07/22/19 20:00 60 07/22/19 18:22 62 107/56 (73) 07/22/19 18:00 107/56 07/22/19 18:00 107/56 07/22/19 16:00 97.3 60 22 109/57 (74) 97 07/22/19 15:48 60 Height (Feet): 5 Height (Inches): 4.00 Weight (Pounds): 153 General Appearance: no acute distress HEENT: mucous membranes moist Respiratory/Chest: lungs clear, other - oxygen by nasal cannula Abdomen: soft, non tender Extremities: no edema Neurologic/Psychiatric: alert, oriented x 3, responsive Laboratory Tests Test 07/23/19 08:14 White Blood Count 4.5 K/UL (4.8-10.8) L Red Blood Count 4.52 M/UL (4.20-5.40) Hemoglobin 13.7 G/DL (12.0-16.0) Hematocrit 42.8 % (37.0-47.0) Mean Corpuscular Volume 95 FL (80-99) Mean Corpuscular Hemoglobin 30.3 PG (27.0-31.0) Mean Corpuscular Hemoglobin Concent 32.1 G/DL (32.0-36.0) Red Cell Distribution Width 12.6 % (11.6-14.8) Platelet Count 195 K/UL (150-450) Mean Platelet Volume 7.8 FL (6.5-10.1) Neutrophils (%) (Auto) 65.7 % (45.0-75.0) Lymphocytes (%) (Auto) 26.1 % (20.0-45.0) Monocytes (%) (Auto) 7.1 % (1.0-10.0) Eosinophils (%) (Auto) 0.3 % (0.0-3.0) Basophils (%) (Auto) 0.8 % (0.0-2.0) Sodium Level 142 MMOL/L (136-145) Potassium Level 3.8 MMOL/L (3.5-5.1) Chloride Level 99 MMOL/L (98-107) Carbon Dioxide Level 37 MMOL/L (21-32) H Anion Gap 6 mmol/L (5-15) Blood Urea Nitrogen 29 mg/dL (7-18) H Creatinine 1.0 MG/DL (0.55-1.30) Estimat Glomerular Filtration Rate mL/min (>60) Glucose Level 83 MG/DL (74-106) Calcium Level 9.3 MG/DL (8.5-10.1) Total Bilirubin 0.7 MG/DL (0.2-1.0) Aspartate Amino Transf (AST/SGOT) 18 U/L (15-37) Alanine Aminotransferase (ALT/SGPT) 12 U/L (12-78) Alkaline Phosphatase 71 U/L (46-116) Total Protein 8.6 G/DL (6.4-8.2) H Albumin 2.8 G/DL (3.4-5.0) L Globulin 5.8 g/dL Albumin/Globulin Ratio 0.5 (1.0-2.7) L Current Medications Medications (Trade) Dose Ordered Sig/Roseline Route PRN Reason Start Time Stop Time Status Last Admin Dose Admin Acetaminophen/ Hydrocodone Bitart ([place] 5/325) 1 tab Q4H PRN ORAL Moderate Pain (Pain Scale 4-6) 07/20/19 14:00 07/27/19 13:59 07/20/19 18:52 Aspirin (Ecotrin) 81 mg DAILY ORAL 07/21/19 09:00 08/20/19 08:59 07/23/19 09:11 Clonidine HCl (Catapres Tab) 0.1 mg EVERY 6 HOURS ORAL 07/20/19 14:00 08/19/19 13:59 07/22/19 12:21 Doxycycline Monohydrate (Doxycycline Monohydrate) 100 mg EVERY 12 HOURS ORAL 07/20/19 21:00 07/27/19 20:59 07/23/19 09:11 Enoxaparin Sodium (Lovenox) 70 mg Q12HR SUBQ 07/21/19 21:00 08/20/19 20:59 07/23/19 09:19 Furosemide (Lasix) 40 mg DAILY IV 07/24/19 09:00 08/23/19 08:59 Hydralazine HCl (Apresoline) 25 mg Q6H PRN ORAL SBP > 180mmHg 07/20/19 15:00 08/19/19 14:59 Hydralazine HCl (Apresoline) 50 mg EVERY 8 HOURS ORAL 07/20/19 14:00 08/19/19 13:59 07/23/19 13:18 Hydromorphone HCl (Dilaudid) 1 mg Q4H PRN IVP Severe Pain (Pain Scale 7-10) 07/20/19 14:00 07/27/19 13:59 07/23/19 13:19 Levothyroxine Sodium (Synthroid) 100 mcg DAILY@0630 ORAL 07/21/19 06:30 08/20/19 06:29 07/23/19 06:09 Lisinopril (Prinivil) 20 mg BID ORAL 07/20/19 18:00 08/19/19 17:59 07/23/19 09:11 Methylprednisolone Sodium Succinate (Solu-MEDROL) 40 mg EVERY 12 HOURS IVP 07/23/19 21:00 08/22/19 20:59 Metoprolol Succinate (Toprol XL) 25 mg DAILY ORAL 07/20/19 15:00 08/19/19 14:59 07/23/19 09:11 Ondansetron HCl (Zofran) 4 mg Q6H PRN IVP Nausea & Vomiting 07/20/19 15:00 08/19/19 14:59 Pantoprazole (Protonix) 40 mg DAILY ORAL 07/21/19 09:00 08/20/19 08:59 07/23/19 09:11 Piperacillin Sod/ Tazobactam Sod 3.375 gm/Sodium Chloride 110 ml @ 27.5 mls/hr EVERY 8 HOURS IVPB 07/20/19 22:00 07/25/19 21:59 07/23/19 13:18 Yazan Braden MD Jul 23, 2019 15:24
[2019-07-23 16:00] VITALS: BP 100/66
[2019-07-23] MEDS: Simethicone 80mg tab ORAL PRN ×2 (16:37→22:53)
[2019-07-23] MEDS: guaiFENesin 100mg/5ml Liq ud ORAL PRN (16:37)
--- NOTE | 2019-07-23 19:51 | NUR ---
HAND-OFF: Report given to Chelly/TABITHA. Patient in stable condition. Endorsed plan of care.
[2019-07-23 20:00] VITALS: BP 155/77
--- NOTE | 2019-07-23 20:25 | NUR ---
NURSE NOTES: Received report from TABITHA Westfall, patient in stable condition, AOx4, no distress, IV on left AC g18, asymptomatic, patent, family at bedside, bed low&locked, side rails upx3,call light within reach, will continue to monitor and reassess
[2019-07-24] VITALS (7 sets, daily range): BP systolic 115–136; BP diastolic 67–77
[2019-07-24] MEDS: Piperacillin/Tazobactam 3.375 GM in NS 110 ML IVPB SCH ×3 (06:01→22:06)
[2019-07-24] MEDS: HydrALAZINE 50mg tab ORAL SCH ×3 (06:03→22:06)
--- NOTE | 2019-07-24 07:10 | NUR ---
NURSE NOTES: Received report from Chelly/RN, Patient is awake lying semi-madrid's, resting comfortably. A/O x4. On Nasal canula 2L, breathing even and unlabored. No acute distress/SOB noted at this time. Able to make needs known. IV site patent, no bleeding or infiltration noted. Encourage to use call light when needed. Bed in low position and locked, bed alarm engaged, side-rails up x3. Call light within reach. Will continue plan of care.
--- NOTE | 2019-07-24 07:12 | NUR ---
HAND-OFF: Report given to TABITHA Westfall, patient in stable condition, plan of care endorsed.
[2019-07-24 08:18] LABS: ALANINE AMINOTRANSFERASE 14 U/L (12-78); ALBUMIN 2.7 G/DL (3.4-5.0); ALBUMIN/GLOBULIN RATIO 0.5 (1.0-2.7); ALKALINE PHOSPHATASE 64 U/L (46-116); ANION GAP 6 mmol/L (5-15); ASPARTATE AMINO TRANSFERASE 17 U/L (15-37); BILIRUBIN,TOTAL 0.5 MG/DL (0.2-1.0); BLOOD UREA NITROGEN 30 mg/dL (7-18); CALCIUM 9.1 MG/DL (8.5-10.1); CARBON DIOXIDE 38 MMOL/L (21-32); CHLORIDE 100 MMOL/L (98-107); CREATININE 0.9 MG/DL (0.55-1.30); POTASSIUM 3.5 MMOL/L (3.5-5.1); SODIUM 144 MMOL/L (136-145)
[2019-07-24] MEDS: Aspirin EC 81mg tab ORAL SCH (08:26)
[2019-07-24] MEDS: Doxycycline Monohydrate 100mg ORAL SCH ×2 (08:26→20:42)
[2019-07-24] MEDS: Metoprolol Succinate XL 25mg tab ORAL SCH (08:26)
[2019-07-24] MEDS: Solu-MEDROL 40mg Inj IVP SCH ×2 (08:27→20:42)
[2019-07-24] MEDS: Lisinopril 20mg tab ORAL SCH ×2 (08:27→17:20)
[2019-07-24] MEDS: HYDROmorphone 1mg/ml Carpuject IVP PRN ×3 (08:28→22:07)
[2019-07-24] MEDS: Enoxaparin Sodium 300mg/3ml vial SUBQ SCH ×2 (08:41→20:41)
--- NOTE | 2019-07-24 10:12 | General Progress Note ---
Assessment/Plan Problem List: (1) COPD (chronic obstructive pulmonary disease) ICD Codes: J44.9 - Chronic obstructive pulmonary disease, unspecified SNOMED: 73100710 (2) DVT (deep venous thrombosis) ICD Codes: I82.409 - Acute embolism and thrombosis of unspecified deep veins of unspecified lower extremity SNOMED: 692086351 (3) HTN (hypertension) ICD Codes: I10 - Essential (primary) hypertension SNOMED: 72742077 (4) Pacemaker ICD Codes: Z95.0 - Presence of cardiac pacemaker SNOMED: 753416963 (5) Pneumonia ICD Codes: J18.9 - Pneumonia, unspecified organism SNOMED: 642503662, 36711111657812 (6) Acute exacerbation of CHF (congestive heart failure) ICD Codes: I50.9 - Heart failure, unspecified SNOMED: 025566556, 24092886744815 (7) Dyspnea ICD Codes: R06.00 - Dyspnea, unspecified SNOMED: 605138063 (8) SOB (shortness of breath) ICD Codes: R06.02 - Shortness of breath SNOMED: 815112729 Status: stable Assessment/Plan: diuresis iv abx follow up cultures steroids resp rx o2 cough rx check echo Subjective ROS Limited/Unobtainable: No Constitutional: Reports: malaise, weakness HEENT: Reports: no symptoms Cardiovascular: Reports: edema Respiratory: Reports: cough, shortness of breath Gastrointestinal/Abdominal: Reports: no symptoms Genitourinary: Reports: no symptoms Neurologic/Psychiatric: Reports: pre-existing deficit Endocrine: Reports: no symptoms Hematologic/Lymphatic: Reports: anemia Allergies: Coded Allergies: No Known Allergies (Verified , 11/17/06) All Systems: reviewed and negative except above Subjective no events. decreased sob. on iv abx and lasix. labs stable. cant walk. Objective Last 24 Hour Vital Signs Date Time Temp Pulse Resp B/P (MAP) Pulse Ox O2 Delivery O2 Flow Rate FiO2 07/24/19 08:27 136/69 07/24/19 08:26 65 136/69 07/24/19 08:00 98.2 65 18 136/69 (91) 97 07/24/19 06:03 131/80 07/24/19 04:00 97.9 60 18 127/70 (89) 94 07/24/19 04:00 62 07/24/19 00:32 136/77 07/24/19 00:00 97.6 60 18 136/77 (96) 94 07/24/19 00:00 62 07/23/19 22:29 154/77 07/23/19 21:00 Nasal Cannula 3.0 07/23/19 20:00 60 07/23/19 20:00 98.1 60 18 155/77 (103) 96 07/23/19 18:00 100/66 07/23/19 18:00 100/66 07/23/19 16:00 69 07/23/19 16:00 97.5 62 18 100/66 (77) 95 07/23/19 13:18 119/61 07/23/19 12:00 62 07/23/19 12:00 97.0 60 18 119/61 (80) 95 07/23/19 12:00 119/61 Intake and Output 07/23/19 07/24/19 19:00 07:00 Intake Total 600 ml 100 ml Output Total 200 ml Balance 600 ml -100 ml Intake Oral 600 ml 100 ml Output Urine Total 200 ml Laboratory Tests 07/23/19 16:50: Vancomycin Level Trough 6.3 07/24/19 05:45: Sodium Level 144, Potassium Level 3.5, Chloride Level 100, Carbon Dioxide Level 38H, Anion Gap 6, Blood Urea Nitrogen 30H, Creatinine 0.9, Estimat Glomerular Filtration Rate , Glucose Level 84, Calcium Level 9.1, Total Bilirubin 0.5, Aspartate Amino Transf (AST/SGOT) 17, Alanine Aminotransferase (ALT/SGPT) 14, Alkaline Phosphatase 64, Total Protein 8.0, Albumin 2.7L, Globulin 5.3, Albumin/ Globulin Ratio 0.5L Height (Feet): 5 Height (Inches): 4.00 Weight (Pounds): 153 Objective General Appearance: WD/WN, alert Neck: supple Cardiovascular: regular rhythm Respiratory/Chest: decreased breath sounds Abdomen: normal bowel sounds, non tender, soft, no organomegaly Edema: no edema noted Arm (L), no edema noted Arm (R), no edema noted Leg (L), no edema noted Leg (R), no edema noted Pedal (L), no edema noted Pedal (R), no edema noted Generalized Neurologic: interactive multimedia designer II-XII grossly normal, alert, oriented x 3 Uomoto,Harjit M. MD Jul 24, 2019 10:12
[2019-07-24] MEDS: Simethicone 80mg tab ORAL PRN ×2 (13:47→20:42)
--- NOTE | 2019-07-24 13:47 | Pulmonology Progress Note ---
Assessment/Plan Assessment/Plan Pulmonary Progress Note HPI Patient is a 79yo woman with previous history on Congestive heart Failure, Hypertension, Chronic Obstructive Pulmonary Disease, Interstitial pulmonary disease, previous DVT - status post IVC filter, Hypothyroidism. Patient admitted c/o SOB since yesterday, got worse today. Denies Chest pain, fever, but does report cough. No hemoptysis. Noted to have patchy infiltrates in the ED - started on IV antibiotics, significantly elevated NPA Allergies: No Known Allergies Past Medical History: Congestive heart Failure, Hypertension, PPM, Chronic Obstructive Pulmonary Disease, Interstitial pulmonary disease, previous DVT - status post IVC filter, Hypothyroidism, Muscular weakness, previous intestinal obstruction All Other Systems: negative except mentioned in HPI Physical Exam Vital Signs Noted General Appearance: no apparent distress, alert, non-toxic Head: normocephalic Eyes: bilateral eye normal inspection, bilateral eye PERRL, bilateral eye EOMI ENT: normal ENT inspection, hearing grossly normal, normal pharynx, no angioedema, normal voice, moist mucus membranes Neck: moist mm, no LN Respiratory: chest non-tender, decreased breath sounds, rhonchi, chest symmetrical, palpation of chest normal Cardiovascular: normal peripheral pulses, regular rate, HS1, HS2 normal, rhythm , JVD, edema noted Gastrointestinal: normal inspection, non tender, soft, no mass, no guarding, no rebound Rectal: deferred Genitourinary: normal inspection, no CVA tenderness Musculoskeletal: back normal, gait/station normal, normal range of motion, non- tender, no calf tenderness Neurologic: alert, responsive, inspector water pollution control normal as tested, motor strength/tone normal , sensory intact, speech normal Impression: Pneumonia Congestive heart Failure Hypertension Chronic Obstructive Pulmonary Disease Interstitial pulmonary disease Previous DVT - status post IVC filter Hypothyroidism Plan: IV AB 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 Subtle filling defects within the right main and lower lobe pulmonary arteries probably represent flow artifacts related to incompletely opacified blood, but the possibility that these represent emboli cannot completely excluded. Extensive pulmonary parenchymal disease, progressive since 12/02/2011. Presence of extensive honeycombing and bronchiectasis indicates this mostly if not exclusively represents end-stage pulmonary fibrosis. However, some of the confluent opacities could represent areas of pulmonary edema or infiltrate Marked cardiomegaly Evidence of right heart failure with extensive reflux of contrast into the inferior vena cava and hepatic veins Arch dilatation of the main pulmonary artery, indicative of pulmonary arterial hypertension. No isolated right ventricular dilatation. Right-sided aortic arch and descending thoracic aorta, with what is probably mirror image branching anatomy with an apparent left subclavian artery. No other situs abnormality demonstrated Pacemaker Diffusely bulky left adrenal without discrete mass, also evident previously Incidental finding of old granulomatous disease within the spleen Subjective ROS Limited/Unobtainable: No Allergies: Coded Allergies: No Known Allergies (Verified , 11/17/06) Objective Last 24 Hour Vital Signs Date Time Temp Pulse Resp B/P (MAP) Pulse Ox O2 Delivery O2 Flow Rate FiO2 07/24/19 12:24 115/67 07/24/19 12:00 97.5 59 19 115/67 (83) 97 07/24/19 12:00 60 07/24/19 09:00 Nasal Cannula 3.0 07/24/19 08:27 136/69 07/24/19 08:26 65 136/69 07/24/19 08:00 62 07/24/19 08:00 98.2 65 18 136/69 (91) 97 07/24/19 06:03 131/80 07/24/19 04:00 97.9 60 18 127/70 (89) 94 07/24/19 04:00 62 07/24/19 00:32 136/77 07/24/19 00:00 97.6 60 18 136/77 (96) 94 07/24/19 00:00 62 07/23/19 22:29 154/77 07/23/19 21:00 Nasal Cannula 3.0 07/23/19 20:00 60 07/23/19 20:00 98.1 60 18 155/77 (103) 96 07/23/19 18:00 100/66 07/23/19 18:00 100/66 07/23/19 16:00 69 07/23/19 16:00 97.5 62 18 100/66 (77) 95 Intake and Output 07/23/19 07/24/19 19:00 07:00 Intake Total 600 ml 100 ml Output Total 200 ml Balance 600 ml -100 ml Intake Oral 600 ml 100 ml Output Urine Total 200 ml Laboratory Tests 07/23/19 16:50: Vancomycin Level Trough 6.3 07/24/19 05:45: Sodium Level 144, Potassium Level 3.5, Chloride Level 100, Carbon Dioxide Level 38H, Anion Gap 6, Blood Urea Nitrogen 30H, Creatinine 0.9, Estimat Glomerular Filtration Rate , Glucose Level 84, Calcium Level 9.1, Total Bilirubin 0.5, Aspartate Amino Transf (AST/SGOT) 17, Alanine Aminotransferase (ALT/SGPT) 14, Alkaline Phosphatase 64, Total Protein 8.0, Albumin 2.7L, Globulin 5.3, Albumin/ Globulin Ratio 0.5L Current Medications Medications (Trade) Dose Ordered Sig/Roseline Route PRN Reason Start Time Stop Time Status Last Admin Dose Admin Acetaminophen/ Hydrocodone Bitart ([place] 5/325) 1 tab Q4H PRN ORAL Moderate Pain (Pain Scale 4-6) 07/20/19 14:00 07/27/19 13:59 07/20/19 18:52 Aspirin (Ecotrin) 81 mg DAILY ORAL 07/21/19 09:00 08/20/19 08:59 07/24/19 08:26 Clonidine HCl (Catapres Tab) 0.1 mg EVERY 6 HOURS ORAL 07/20/19 14:00 08/19/19 13:59 07/24/19 12:24 Doxycycline Monohydrate (Doxycycline Monohydrate) 100 mg EVERY 12 HOURS ORAL 07/20/19 21:00 07/27/19 20:59 07/24/19 08:26 Enoxaparin Sodium (Lovenox) 70 mg Q12HR SUBQ 07/21/19 21:00 08/20/19 20:59 07/24/19 08:41 Furosemide (Lasix) 40 mg DAILY IV 07/24/19 09:00 08/23/19 08:59 07/24/19 08:28 Guaifenesin (Robitussin) 100 mg Q4H PRN ORAL For Cough 07/23/19 15:15 08/22/19 15:14 07/23/19 16:37 Hydralazine HCl (Apresoline) 25 mg Q6H PRN ORAL SBP > 180mmHg 07/20/19 15:00 08/19/19 14:59 Hydralazine HCl (Apresoline) 50 mg EVERY 8 HOURS ORAL 07/20/19 14:00 08/19/19 13:59 07/24/19 06:03 Hydromorphone HCl (Dilaudid) 1 mg Q4H PRN IVP Severe Pain (Pain Scale 7-10) 07/20/19 14:00 07/27/19 13:59 07/24/19 08:28 Levothyroxine Sodium (Synthroid) 100 mcg DAILY@0630 ORAL 07/21/19 06:30 08/20/19 06:29 07/24/19 06:03 Lisinopril (Prinivil) 20 mg BID ORAL 07/20/19 18:00 08/19/19 17:59 07/24/19 08:27 Methylprednisolone Sodium Succinate (Solu-MEDROL) 40 mg EVERY 12 HOURS IVP 07/23/19 21:00 08/22/19 20:59 07/24/19 08:27 Metoprolol Succinate (Toprol XL) 25 mg DAILY ORAL 07/20/19 15:00 08/19/19 14:59 07/24/19 08:26 Ondansetron HCl (Zofran) 4 mg Q6H PRN IVP Nausea & Vomiting 07/20/19 15:00 08/19/19 14:59 Pantoprazole (Protonix) 40 mg DAILY ORAL 07/21/19 09:00 08/20/19 08:59 07/24/19 08:26 Piperacillin Sod/ Tazobactam Sod 3.375 gm/Sodium Chloride 110 ml @ 27.5 mls/hr EVERY 8 HOURS IVPB 07/20/19 22:00 07/25/19 21:59 07/24/19 13:41 Simethicone (Mylicon) 80 mg Q6H PRN ORAL GAS 07/23/19 15:15 08/22/19 15:14 07/23/19 22:53 Edvin Velasquez MD Jul 24, 2019 13:47
[2019-07-24] MEDS: guaiFENesin 100mg/5ml Liq ud ORAL PRN (17:18)
--- NOTE | 2019-07-24 19:31 | NUR ---
HAND-OFF: Report given to Chelly/TABITHA. Patient in stable condition. Endorsed plan of care.
--- NOTE | 2019-07-24 19:35 | NUR ---
NURSE NOTES: Received report from TABITHA Westfall, patient in stable condition, AOx3, no distress, IV on left AC g18, asymptomatic, patent, family at bedside, bed low&locked, side rails upx3,call light within reach, will continue to monitor and reassess
[2019-07-25 04:00] VITALS: BP 130/73
--- NOTE | 2019-07-25 05:15 | Consultation ---
DATE OF CONSULTATION: 07/24/2019 CARDIOLOGY CONSULTATION CONSULTING PHYSICIAN: Edvin Grewal M.D. REQUESTING PHYSICIAN: Harjit Nguyen M.D. REASON FOR CONSULTATION: Refractory heart failure. HISTORY OF PRESENT ILLNESS: This is a 79-year-old female with a nonischemic hypertensive cardiomyopathy and diastolic heart failure. She was admitted to the hospital two days ago because of progressive shortness of breath and swelling, and I have been asked to assist with cardiovascular care. Since admission, the patient was started on anticoagulation due to concern of pulmonary embolic event, although she does have a prior history of DVT, PE, and IVC filter. She also was treated with antimicrobials for presumed pneumonia and diuretics. She continues to have swelling and shortness of breath. She remains on antimicrobials with intravenous steroids as well as inhaled bronchodilator and acute pulmonary embolic event. Remaining nondefinitive by CT angiogram of the chest due to filling defects within the right main and lower lobe pulmonary arteries 01:50 felt to be either emboli or incompletely opacified blood. PAST MEDICAL HISTORY: Hypertensive heart disease; right cardiac congestive heart failure; diastolic dysfunction; COPD; degenerative disk disease; osteoarthritis; permanent pacemaker; history of DVT, PE, and IVC filter; hypothyroidism; chronic venous insufficiency; permanent pacemaker; and diverticulosis with history of GI bleeding. ALLERGIES: None. FAMILY HISTORY: Noncontributory. SOCIAL HISTORY: Prior smoker. No alcohol or substance abuse. MEDICATIONS: Reviewed and reconciled. REVIEW OF SYSTEMS: A 10-point review of systems performed. All positive findings noted above. PHYSICAL EXAMINATION: VITAL SIGNS: Blood pressure 119/75, heart rate 60, respiratory rate 17, and afebrile. NECK: Jugular venous pressure difficult to assess due to obesity. No thyromegaly. LUNGS: Bilateral breath sounds, diminished at the bases with few rales and wheezes. CARDIAC: Regular rhythm and rate. Normal S1 with a right-sided fourth heart sound and a 2/6 systolic murmur at the lower left sternal border. ABDOMEN: Soft. EXTREMITIES: With dependent edema. LABORATORY DATA: Yesterday, white count 4.5 and hemoglobin 13.7. Today, sodium 144, potassium 3.5, bicarb 38, BUN 30, and creatinine 0.9. Albumin 2.7. IMPRESSION: 1. Acute on chronic diastolic congestive heart failure, right greater than left-sided. 2. Venous insufficiency. 3. Possible acute pulmonary emboli. 4. History of DVT, prior pulmonary embolus, and IVC filter. 5. COPD. 6. Paroxysmal bronchospasm. 7. Hypoxia. 8. Permanent pacemaker. 9. Hypertensive cardiomyopathy with labile blood pressure. 10. Moderate protein-calorie malnutrition. 11. Healthcare-acquired pneumonia. PLAN: 1. Antimicrobials. 2. Inhaled bronchodilators. 3. Intravenous steroids with taper. 4. IV diuretics. 5. Titration of anti-failure and antihypertensive medications based on clinical parameters. 6. Trend natriuretic peptide assay and adjust diuretic dose accordingly. 7. Replace electrolytes as needed. 8. Pacemaker interrogation. 9. Protein supplement. 10. Full anticoagulation at this time. Edvin Grewal M.D. DR: LISSA JOB#: [id number] CC:
[2019-07-25] MEDS: Piperacillin/Tazobactam 3.375 GM in NS 110 ML IVPB SCH ×3 (05:30→21:20)
[2019-07-25] MEDS: HydrALAZINE 50mg tab ORAL SCH ×3 (05:32→21:26)
--- NOTE | 2019-07-25 06:48 | General Progress Note ---
Assessment/Plan Problem List: (1) COPD (chronic obstructive pulmonary disease) ICD Codes: J44.9 - Chronic obstructive pulmonary disease, unspecified SNOMED: 60435167 (2) DVT (deep venous thrombosis) ICD Codes: I82.409 - Acute embolism and thrombosis of unspecified deep veins of unspecified lower extremity SNOMED: 347265157 (3) HTN (hypertension) ICD Codes: I10 - Essential (primary) hypertension SNOMED: 52332198 (4) Pacemaker ICD Codes: Z95.0 - Presence of cardiac pacemaker SNOMED: 721956111 (5) Pneumonia ICD Codes: J18.9 - Pneumonia, unspecified organism SNOMED: 463172025, 70830531170881 (6) Acute exacerbation of CHF (congestive heart failure) ICD Codes: I50.9 - Heart failure, unspecified SNOMED: 479323112, 41530290176659 (7) Dyspnea ICD Codes: R06.00 - Dyspnea, unspecified SNOMED: 923606936 (8) SOB (shortness of breath) ICD Codes: R06.02 - Shortness of breath SNOMED: 781926753 Status: stable Assessment/Plan: diuresis iv abx follow up cultures steroids resp rx o2 cough rx check echo reassess anticoag Subjective ROS Limited/Unobtainable: No Constitutional: Reports: malaise, weakness HEENT: Reports: no symptoms Cardiovascular: Reports: no symptoms Respiratory: Reports: shortness of breath, SOB with excertion Gastrointestinal/Abdominal: Reports: no symptoms Genitourinary: Reports: no symptoms Neurologic/Psychiatric: Reports: pre-existing deficit Endocrine: Reports: no symptoms Hematologic/Lymphatic: Reports: no symptoms Allergies: Coded Allergies: No Known Allergies (Verified , 11/17/06) All Systems: reviewed and negative except above Subjective no events. decreased sob. on iv abx and lasix. labs stable. cant walk. cards noted. d/w - CT negative for PE Objective Last 24 Hour Vital Signs Date Time Temp Pulse Resp B/P (MAP) Pulse Ox O2 Delivery O2 Flow Rate FiO2 07/25/19 05:32 128/67 07/25/19 05:32 128/67 07/25/19 04:00 97.1 61 17 130/73 (92) 97 07/25/19 04:00 60 10/28/19 00:01 133/70 07/25/19 00:00 60 07/24/19 23:55 97.7 60 16 133/70 (91) 97 07/24/19 22:06 139/80 07/24/19 21:00 Nasal Cannula 3.0 07/24/19 20:00 63 07/24/19 20:00 96.7 60 17 129/71 (90) 97 07/24/19 17:20 119/75 07/24/19 17:20 119/75 07/24/19 16:58 Nasal Cannula 3.0 07/24/19 16:00 60 07/24/19 16:00 97.9 60 21 119/75 (90) 97 07/24/19 13:47 115/67 07/24/19 12:24 115/67 07/24/19 12:00 97.5 59 19 115/67 (83) 97 07/24/19 12:00 60 07/24/19 09:00 Nasal Cannula 3.0 07/24/19 08:27 136/69 07/24/19 08:26 65 136/69 07/24/19 08:00 62 07/24/19 08:00 98.2 65 18 136/69 (91) 97 Intake and Output 07/24/19 07/25/19 18:59 06:59 Intake Total 960 ml 100 ml Balance 960 ml 100 ml Intake Oral 960 ml 100 ml # Voids 4 # Bowel Movements 2 Height (Feet): 5 Height (Inches): 4.00 Weight (Pounds): 153 Objective General Appearance: WD/WN, alert Neck: supple Cardiovascular: regular rhythm Respiratory/Chest: decreased breath sounds Abdomen: normal bowel sounds, non tender, soft, no organomegaly Edema: no edema noted Arm (L), no edema noted Arm (R), no edema noted Leg (L), no edema noted Leg (R), no edema noted Pedal (L), no edema noted Pedal (R), no edema noted 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
--- NOTE | 2019-07-25 07:12 | NUR ---
HAND-OFF: Report given to TABITHA Verdin, patient in stable condition, plan of care endorsed.
[2019-07-25 07:14] LABS: BASOPHILS % (AUTO) 1.4 % (0.0-2.0); EOSINOPHILS % (AUTO) 0.1 % (0.0-3.0); HEMATOCRIT 40.9 % (37.0-47.0); HEMOGLOBIN 13.1 G/DL (12.0-16.0); LYMPHOCYTES % (AUTO) 29.3 % (20.0-45.0); MEAN CORPUSCULAR VOLUME 95 FL (80-99); MONOCYTES % (AUTO) 8.9 % (1.0-10.0); NEUTROPHILS % (AUTO) 60.4 % (45.0-75.0); PLATELET COUNT 209 K/UL (150-450); RED BLOOD COUNT 4.29 M/UL (4.20-5.40); RED CELL DISTRIBUTION WIDTH 12.4 % (11.6-14.8); WHITE BLOOD COUNT 3.5 K/UL (4.8-10.8)
[2019-07-25 07:36] LABS: ALANINE AMINOTRANSFERASE 15 U/L (12-78); ALBUMIN 2.6 G/DL (3.4-5.0); ALBUMIN/GLOBULIN RATIO 0.5 (1.0-2.7); ALKALINE PHOSPHATASE 68 U/L (46-116); ANION GAP 3 mmol/L (5-15); ASPARTATE AMINO TRANSFERASE 21 U/L (15-37); BILIRUBIN,TOTAL 0.4 MG/DL (0.2-1.0); BLOOD UREA NITROGEN 32 mg/dL (7-18); CALCIUM 9.2 MG/DL (8.5-10.1); CARBON DIOXIDE 40 MMOL/L (21-32); CHLORIDE 100 MMOL/L (98-107); CREATININE 0.8 MG/DL (0.55-1.30); POTASSIUM 3.5 MMOL/L (3.5-5.1); SODIUM 143 MMOL/L (136-145)
--- NOTE | 2019-07-25 07:46 | Pulmonology Progress Note ---
Assessment/Plan Assessment/Plan Impression: Pneumonia, diffuse VQ indeterminate but mostly matched defects Congestive heart Failure Hypertension Chronic Obstructive Pulmonary Disease Interstitial pulmonary disease bilateral DVT - status post IVC filter Hypothyroidism ES pulmonary fibrosis with honeycombing and bronchiectasis Plan: IV ABx as is Diuresis and monitor imaging on Lovenox for PE dosing maintain meds O2 PRN HHN Monitor labs on lovenox and may convert to NOACS monitor as is Aspiration precautions monitor oxygen needs and acid base impression, plan, and exam edited and reviewed in detail care discussed with RN Subjective Allergies: Coded Allergies: No Known Allergies (Verified , 11/17/06) Subjective care noted and reviewed CTPA and duplex noted on anticoag Objective Last 24 Hour Vital Signs Date Time Temp Pulse Resp B/P (MAP) Pulse Ox O2 Delivery O2 Flow Rate FiO2 07/25/19 05:32 128/67 07/25/19 05:32 128/67 07/25/19 04:00 97.1 61 17 130/73 (92) 97 07/25/19 04:00 60 07/25/19 00:01 133/70 07/25/19 00:00 60 07/24/19 23:55 97.7 60 16 133/70 (91) 97 07/24/19 22:06 139/80 07/24/19 21:00 Nasal Cannula 3.0 07/24/19 20:00 63 07/24/19 20:00 96.7 60 17 129/71 (90) 97 07/24/19 17:20 119/75 07/24/19 17:20 119/75 07/24/19 16:58 Nasal Cannula 3.0 07/24/19 16:00 60 07/24/19 16:00 97.9 60 21 119/75 (90) 97 07/24/19 13:47 115/67 07/24/19 12:24 115/67 07/24/19 12:00 97.5 59 19 115/67 (83) 97 07/24/19 12:00 60 07/24/19 09:00 Nasal Cannula 3.0 07/24/19 08:27 136/69 07/24/19 08:26 65 136/69 07/24/19 08:00 62 07/24/19 08:00 98.2 65 18 136/69 (91) 97 Intake and Output 07/24/19 07/25/19 19:00 07:00 Intake Total 960 ml 100 ml Balance 960 ml 100 ml Intake Oral 960 ml 100 ml # Voids 4 # Bowel Movements 2 Objective WDWN NAD reduced breath sounds bilaterally with scattered rhonchi [id number] without MRG NABS nontender no HSM no CCE nonfocal reviewed and edited Microbiology Date/Time Source Procedure Growth Status 07/24/19 00:15 Sputum Expectorated Gram Stain - Final Resulted 07/24/19 00:15 Sputum Expectorated Sputum Culture Pending Resulted Laboratory Tests 07/25/19 05:35: White Blood Count 3.5L, Red Blood Count 4.29, Hemoglobin 13.1, Hematocrit 40.9, Mean Corpuscular Volume 95, Mean Corpuscular Hemoglobin 30.6, Mean Corpuscular Hemoglobin Concent 32.1, Red Cell Distribution Width 12.4, Platelet Count 209, Mean Platelet Volume 8.4, Neutrophils (%) (Auto) 60.4, Lymphocytes (%) (Auto) 29.3, Monocytes (%) (Auto) 8.9, Eosinophils (%) (Auto) 0.1, Basophils (%) (Auto ) 1.4, Sodium Level 143, Potassium Level 3.5, Chloride Level 100, Carbon Dioxide Level 40H, Anion Gap 3L, Blood Urea Nitrogen 32H, Creatinine 0.8, Estimat Glomerular Filtration Rate , Glucose Level 82, Calcium Level 9.2, Magnesium Level [Pending], Total Bilirubin 0.4, Aspartate Amino Transf (AST/SGOT ) 21, Alanine Aminotransferase (ALT/SGPT) 15, Alkaline Phosphatase 68, Pro-B- Type Natriuretic Peptide [Pending], Total Protein 8.0, Albumin 2.6L, Globulin 5.4, Albumin/Globulin Ratio 0.5L Current Medications Medications (Trade) Dose Ordered Sig/Roseline Route PRN Reason Start Time Stop Time Status Last Admin Dose Admin Acetaminophen/ Hydrocodone Bitart ([place] 5/325) 1 tab Q4H PRN ORAL Moderate Pain (Pain Scale 4-6) 07/20/19 14:00 07/27/19 13:59 07/20/19 18:52 Aspirin (Ecotrin) 81 mg DAILY ORAL 07/21/19 09:00 08/20/19 08:59 07/24/19 08:26 Clonidine HCl (Catapres Tab) 0.1 mg EVERY 6 HOURS ORAL 07/20/19 14:00 08/19/19 13:59 07/25/19 00:01 Doxycycline Monohydrate (Doxycycline Monohydrate) 100 mg EVERY 12 HOURS ORAL 07/20/19 21:00 07/27/19 20:59 07/24/19 20:42 Enoxaparin Sodium (Lovenox) 70 mg Q12HR SUBQ 07/21/19 21:00 08/20/19 20:59 07/24/19 20:41 Furosemide (Lasix) 40 mg DAILY IV 07/24/19 09:00 08/23/19 08:59 07/24/19 08:28 Guaifenesin (Robitussin) 100 mg Q4H PRN ORAL For Cough 07/23/19 15:15 08/22/19 15:14 07/24/19 17:18 Hydralazine HCl (Apresoline) 25 mg Q6H PRN ORAL SBP > 180mmHg 07/20/19 15:00 08/19/19 14:59 Hydralazine HCl (Apresoline) 50 mg EVERY 8 HOURS ORAL 07/20/19 14:00 08/19/19 13:59 07/25/19 05:32 Hydromorphone HCl (Dilaudid) 1 mg Q4H PRN IVP Severe Pain (Pain Scale 7-10) 07/20/19 14:00 07/27/19 13:59 07/24/19 22:07 Levothyroxine Sodium (Synthroid) 100 mcg DAILY@0630 ORAL 07/21/19 06:30 08/20/19 06:29 07/25/19 05:30 Lisinopril (Prinivil) 20 mg BID ORAL 07/20/19 18:00 08/19/19 17:59 07/24/19 17:20 Methylprednisolone Sodium Succinate (Solu-MEDROL) 40 mg EVERY 12 HOURS IVP 07/23/19 21:00 08/22/19 20:59 07/24/19 20:42 Metoprolol Succinate (Toprol XL) 25 mg DAILY ORAL 07/20/19 15:00 08/19/19 14:59 07/24/19 08:26 Ondansetron HCl (Zofran) 4 mg Q6H PRN IVP Nausea & Vomiting 07/20/19 15:00 08/19/19 14:59 Pantoprazole (Protonix) 40 mg DAILY ORAL 07/21/19 09:00 08/20/19 08:59 07/24/19 08:26 Piperacillin Sod/ Tazobactam Sod 3.375 gm/Sodium Chloride 110 ml @ 27.5 mls/hr EVERY 8 HOURS IVPB 07/20/19 22:00 07/25/19 21:59 07/25/19 05:30 Simethicone (Mylicon) 80 mg Q6H PRN ORAL GAS 07/23/19 15:15 08/22/19 15:14 07/24/19 20:42 Hany Hampton MD Jul 25, 2019 07:46
--- NOTE | 2019-07-25 07:50 | NUR ---
NURSE NOTES: Received patient from Paramjit Foster. Patient is awake lying comfortably in bed. fall precautions in place. will follow.
[2019-07-25 08:00] VITALS: BP 125/66
[2019-07-25] MEDS: Doxycycline Monohydrate 100mg ORAL SCH ×2 (09:08→21:19)
[2019-07-25] MEDS: Metoprolol Succinate XL 25mg tab ORAL SCH (09:08)
[2019-07-25] MEDS: Solu-MEDROL 40mg Inj IVP SCH ×2 (09:08→21:20)
[2019-07-25] MEDS: Aspirin EC 81mg tab ORAL SCH (09:08)
[2019-07-25] MEDS: Lisinopril 20mg tab ORAL SCH ×2 (09:08→17:12)
[2019-07-25] MEDS: HYDROcodone/Acetamin 5/325 tab ORAL PRN (09:08)
[2019-07-25] MEDS: Enoxaparin Sodium 300mg/3ml vial SUBQ SCH ×2 (09:12→21:58)
--- NOTE | 2019-07-25 10:37 | NUR ---
RADIOLOGY DEPT., CHEST X-RAY DONE.-P.DYE
--- NOTE | 2019-07-25 11:20 | Infectious Diseases Prog Note ---
Assessment/Plan Assessment/Plan antibiotics : zosyn, doxycycline A 1. pneumonia 2. COPD 3. CHF 4. bronchiectasis 5. hypothyroidism 6. pulmonary fibrosis P 1. continue zosyn, po doxycycline 2. will follow up sputum culture Subjective Constitutional: Denies: fever, chills Respiratory: Reports: shortness of breath, dry cough Gastrointestinal/Abdominal: Denies: nausea, vomiting, diarrhea Musculoskeletal: Reports: pain Allergies: Coded Allergies: No Known Allergies (Verified , 11/17/06) Objective Vital Signs Last 24 Hour Vital Signs Date Time Temp Pulse Resp B/P (MAP) Pulse Ox O2 Delivery O2 Flow Rate FiO2 07/25/19 09:38 97.2 07/25/19 09:08 62 125/66 07/25/19 09:08 125/66 07/25/19 09:00 Nasal Cannula 3.0 07/25/19 08:00 97.2 62 20 125/66 (85) 96 07/25/19 05:32 128/67 07/25/19 05:32 128/67 07/25/19 04:00 97.1 61 17 130/73 (92) 97 07/25/19 04:00 60 07/25/19 00:01 133/70 07/25/19 00:00 60 07/24/19 23:55 97.7 60 16 133/70 (91) 97 07/24/19 22:06 139/80 07/24/19 21:00 Nasal Cannula 3.0 07/24/19 20:00 63 07/24/19 20:00 96.7 60 17 129/71 (90) 97 07/24/19 17:20 119/75 07/24/19 17:20 119/75 07/24/19 16:58 Nasal Cannula 3.0 07/24/19 16:00 60 07/24/19 16:00 97.9 60 21 119/75 (90) 97 07/24/19 13:47 115/67 07/24/19 12:24 115/67 07/24/19 12:00 97.5 59 19 115/67 (83) 97 07/24/19 12:00 60 Height (Feet): 5 Height (Inches): 4.00 Weight (Pounds): 153 Respiratory/Chest: lungs clear Cardiovascular: normal rate, regular rhythm, no gallop/murmur Abdomen: soft, non tender Extremities: no edema Microbiology Date/Time Source Procedure Growth Status 07/24/19 00:15 Sputum Expectorated Gram Stain - Final Resulted 07/24/19 00:15 Sputum Expectorated Sputum Culture Pending Resulted Laboratory Tests Test 07/25/19 05:35 White Blood Count 3.5 K/UL (4.8-10.8) L Red Blood Count 4.29 M/UL (4.20-5.40) Hemoglobin 13.1 G/DL (12.0-16.0) Hematocrit 40.9 % (37.0-47.0) Mean Corpuscular Volume 95 FL (80-99) Mean Corpuscular Hemoglobin 30.6 PG (27.0-31.0) Mean Corpuscular Hemoglobin Concent 32.1 G/DL (32.0-36.0) Red Cell Distribution Width 12.4 % (11.6-14.8) Platelet Count 209 K/UL (150-450) Mean Platelet Volume 8.4 FL (6.5-10.1) Neutrophils (%) (Auto) 60.4 % (45.0-75.0) Lymphocytes (%) (Auto) 29.3 % (20.0-45.0) Monocytes (%) (Auto) 8.9 % (1.0-10.0) Eosinophils (%) (Auto) 0.1 % (0.0-3.0) Basophils (%) (Auto) 1.4 % (0.0-2.0) Sodium Level 143 MMOL/L (136-145) Potassium Level 3.5 MMOL/L (3.5-5.1) Chloride Level 100 MMOL/L (98-107) Carbon Dioxide Level 40 MMOL/L (21-32) H Anion Gap 3 mmol/L (5-15) L Blood Urea Nitrogen 32 mg/dL (7-18) H Creatinine 0.8 MG/DL (0.55-1.30) Estimat Glomerular Filtration Rate mL/min (>60) Glucose Level 82 MG/DL (74-106) Calcium Level 9.2 MG/DL (8.5-10.1) Magnesium Level 1.9 MG/DL (1.8-2.4) Total Bilirubin 0.4 MG/DL (0.2-1.0) Aspartate Amino Transf (AST/SGOT) 21 U/L (15-37) Alanine Aminotransferase (ALT/SGPT) 15 U/L (12-78) Alkaline Phosphatase 68 U/L (46-116) Pro-B-Type Natriuretic Peptide 670 pg/mL (0-125) H Total Protein 8.0 G/DL (6.4-8.2) Albumin 2.6 G/DL (3.4-5.0) L Globulin 5.4 g/dL Albumin/Globulin Ratio 0.5 (1.0-2.7) L Current Medications Medications (Trade) Dose Ordered Sig/Roseline Route PRN Reason Start Time Stop Time Status Last Admin Dose Admin Acetaminophen/ Hydrocodone Bitart ([place] 5/325) 1 tab Q4H PRN ORAL Moderate Pain (Pain Scale 4-6) 07/20/19 14:00 07/27/19 13:59 07/25/19 09:08 Aspirin (Ecotrin) 81 mg DAILY ORAL 07/21/19 09:00 08/20/19 08:59 07/25/19 09:08 Clonidine HCl (Catapres Tab) 0.1 mg EVERY 6 HOURS ORAL 07/20/19 14:00 08/19/19 13:59 07/25/19 00:01 Doxycycline Monohydrate (Doxycycline Monohydrate) 100 mg EVERY 12 HOURS ORAL 07/20/19 21:00 07/27/19 20:59 07/25/19 09:08 Enoxaparin Sodium (Lovenox) 70 mg Q12HR SUBQ 07/21/19 21:00 08/20/19 20:59 07/25/19 09:12 Furosemide (Lasix) 40 mg DAILY IV 07/24/19 09:00 08/23/19 08:59 07/25/19 09:09 Guaifenesin (Robitussin) 100 mg Q4H PRN ORAL For Cough 07/23/19 15:15 08/22/19 15:14 07/24/19 17:18 Hydralazine HCl (Apresoline) 25 mg Q6H PRN ORAL SBP > 180mmHg 07/20/19 15:00 08/19/19 14:59 Hydralazine HCl (Apresoline) 50 mg EVERY 8 HOURS ORAL 07/20/19 14:00 08/19/19 13:59 07/25/19 05:32 Hydromorphone HCl (Dilaudid) 1 mg Q4H PRN IVP Severe Pain (Pain Scale 7-10) 07/20/19 14:00 07/27/19 13:59 07/24/19 22:07 Levothyroxine Sodium (Synthroid) 100 mcg DAILY@0630 ORAL 07/21/19 06:30 08/20/19 06:29 07/25/19 05:30 Lisinopril (Prinivil) 20 mg BID ORAL 07/20/19 18:00 08/19/19 17:59 07/25/19 09:08 Methylprednisolone Sodium Succinate (Solu-MEDROL) 40 mg EVERY 12 HOURS IVP 07/23/19 21:00 08/22/19 20:59 07/25/19 09:08 Metoprolol Succinate (Toprol XL) 25 mg DAILY ORAL 07/20/19 15:00 08/19/19 14:59 07/25/19 09:08 Ondansetron HCl (Zofran) 4 mg Q6H PRN IVP Nausea & Vomiting 07/20/19 15:00 08/19/19 14:59 Pantoprazole (Protonix) 40 mg DAILY ORAL 07/21/19 09:00 08/20/19 08:59 07/25/19 09:08 Piperacillin Sod/ Tazobactam Sod 3.375 gm/Sodium Chloride 110 ml @ 27.5 mls/hr EVERY 8 HOURS IVPB 07/20/19 22:00 07/25/19 21:59 07/25/19 05:30 Simethicone (Mylicon) 80 mg Q6H PRN ORAL GAS 07/23/19 15:15 08/22/19 15:14 07/24/19 20:42 Sly Li MD Jul 25, 2019 11:20
[2019-07-25 12:00] VITALS: BP 155/81
--- NOTE | 2019-07-25 12:03 | NUR ---
CASE MANAGEMENT:REVIEW 07/25/19 SI: PNA. CHF EXACERBATION (+) INTERMEDIATE PROBABILITY OF PE 97.2 62 20 125/66 96% ON 2L/NC IS: IV LASIX QD IV SOLUMEDROL 40MG Q12 IV ZOSYN Q8HRS LOVENOX SQ Q12 ASA PO QD DOXYCYCLINE PO Q12 LISINOPRIL PO BID TOPROL PO QD HYDRALAZINE PO Q8HRS : TELEMETRY STATUS DCP: FROM [facility]
[2019-07-25] MEDS: HYDROmorphone 1mg/ml Carpuject IVP PRN ×2 (12:21→22:01)
--- NOTE | 2019-07-25 13:54 | Cardiology Report ---
APPROVED REPORT EKG Measurement Heart [id number] Sinus rhythm with occasional premature ventricular complexes. Atrial paced complexes on demand. Electronic pacemaker. Biatrial enlargement T wave abnormality, consider anterior ischemia Abnormal ECG
--- NOTE | 2019-07-25 13:56 | NUR ---
RD ASSESSMENT & RECOMMENDATIONS SEE CARE ACTIVITY FOR COMPLETE ASSESSMENT DAILY ESTIMATED NEEDS: Needs based on cardiac, pulmonary 70kg 25-30 kcals/kg 4174-1972 total kcals 1-1.5 g protein/kg 70-105 g total protein Per MD, on lasix mL/kg total fluid mLs NUTRITION DIAGNOSIS: Decreased sodium needs r/t cardiac history as evidenced by pt adm w/ CHF, elev BNP,and h/o HTN. CURRENT DIET:Cardiac, chopped PO DIET RECOMMENDATIONS: LOW NA DIET (texture per AUTOMATION AND CONTROL ENGINEER) ADDITIONAL RECOMMENDATIONS: 1) Obtain a standing weight for accurate CBW Bed wt: 153# vs Stated wt: 173# 2) On lasix, monitor lytes daily, replete as needed 3) On solumedrol, monitor BG / need for hypoglycemic agents 4) Add B-complex 1 tab daily 5) Add Ensure 1 bottle daily 6) noted sacral scar per RN notes-> rec WC eval
--- NOTE | 2019-07-25 14:50 | Diagnostic Imaging Report ---
Indication: Dyspnea Comparison: 07/20/2019 A single view chest radiograph was obtained. Findings: Patchy infiltrates fairly extensive demonstrated bilaterally. Heart is enlarged but stable. IMPRESSION: No change
[2019-07-25 16:00] VITALS: BP 104/61
--- NOTE | 2019-07-25 19:34 | NUR ---
HAND-OFF: Report given to Paramjit Foster. Patient stable. Plan of care endorsed.
[2019-07-25 20:00] VITALS: BP 118/74
[2019-07-25 21:00] VITALS: BP 145/81
[2019-07-25] MEDS: Simethicone 80mg tab ORAL PRN (21:24)
[2019-07-26] VITALS (7 sets, daily range): BP systolic 119–157; BP diastolic 72–84
--- NOTE | 2019-07-26 04:15 | Progress Note ---
DATE: 07/25/2019 CARDIOLOGY PROGRESS NOTE SUBJECTIVE: The patient feels weak, no energy, unable to get out of bed. Legs hurt. Pacemaker was interrogated today. Battery life is adequate in function appropriate. PHYSICAL EXAMINATION: LUNGS: Diminished breath sounds. HEART: Regular rhythm and rate. Normal S1, paradoxically split S2. ABDOMEN: Soft, obese. EXTREMITIES: With 1+ dependent edema pretibially. DIAGNOSTIC DATA: Echocardiogram is reviewed. IMPRESSION: 1. Acute on chronic diastolic congestive heart failure, mostly right sided. 2. Hypertensive heart disease. 3. Chronic obstructive pulmonary disease. 4. Chronic venous insufficiency. 5. Permanent pacemaker. PLAN: 1. Cardiac monitoring. 2. Diuresis. 3. Titrate anti-failure regimen. 4. Optimize blood pressure control. 5. Pain control. 6. Physical and occupational therapy. Edvin Grewal M.D. DR: DARRYN JOB#: [id number] CC:
[2019-07-26] MEDS: Piperacillin/Tazobactam 3.375 GM in NS 110 ML IVPB SCH ×3 (05:36→21:49)
[2019-07-26] MEDS: HydrALAZINE 50mg tab ORAL SCH ×3 (05:37→21:50)
--- NOTE | 2019-07-26 07:07 | General Progress Note ---
Assessment/Plan Problem List: (1) COPD (chronic obstructive pulmonary disease) ICD Codes: J44.9 - Chronic obstructive pulmonary disease, unspecified SNOMED: 28345781 (2) DVT (deep venous thrombosis) ICD Codes: I82.409 - Acute embolism and thrombosis of unspecified deep veins of unspecified lower extremity SNOMED: 015624962 (3) HTN (hypertension) ICD Codes: I10 - Essential (primary) hypertension SNOMED: 89530908 (4) Pacemaker ICD Codes: Z95.0 - Presence of cardiac pacemaker SNOMED: 030072539 (5) Pneumonia ICD Codes: J18.9 - Pneumonia, unspecified organism SNOMED: 591178236, 11604729781308 (6) Acute exacerbation of CHF (congestive heart failure) ICD Codes: I50.9 - Heart failure, unspecified SNOMED: 271810386, 78572039957390 (7) Dyspnea ICD Codes: R06.00 - Dyspnea, unspecified SNOMED: 386478380 (8) SOB (shortness of breath) ICD Codes: R06.02 - Shortness of breath SNOMED: 627433791 Status: stable Assessment/Plan: diuresis per cards iv abx follow up sputum cultures steroids- wean resp rx o2 cough rx check echo dc lovenox Subjective ROS Limited/Unobtainable: No Constitutional: Reports: malaise, weakness HEENT: Reports: no symptoms Cardiovascular: Reports: no symptoms Respiratory: Reports: cough, shortness of breath Gastrointestinal/Abdominal: Reports: no symptoms Genitourinary: Reports: no symptoms Neurologic/Psychiatric: Reports: no symptoms Endocrine: Reports: no symptoms Hematologic/Lymphatic: Reports: no symptoms Allergies: Coded Allergies: No Known Allergies (Verified , 11/17/06) All Systems: reviewed and negative except above Subjective no events. overall improved. less sob. Low suspicion for PE on CT per . cxr still with extensive patchy infiltrates Objective Last 24 Hour Vital Signs Date Time Temp Pulse Resp B/P (MAP) Pulse Ox O2 Delivery O2 Flow Rate FiO2 07/26/19 05:37 154/76 07/26/19 05:37 154/76 07/26/19 05:30 154/76 (102) 07/26/19 04:00 98.1 76 20 121/76 (91) 98 07/26/19 04:00 60 07/26/19 00:00 67 07/26/19 00:00 119/72 07/26/19 00:00 98.3 72 18 119/72 (88) 97 07/25/19 21:26 145/81 07/25/19 21:00 60 145/81 (102) 07/25/19 21:00 Nasal Cannula 3.0 07/25/19 20:00 98.7 70 20 118/74 (89) 94 07/25/19 20:00 70 07/25/19 17:12 104/61 07/25/19 17:11 104/61 07/25/19 16:00 97.5 61 20 104/61 (75) 94 07/25/19 16:00 60 07/25/19 14:40 110/68 07/25/19 12:51 98.1 07/25/19 12:20 155/81 07/25/19 12:00 63 07/25/19 12:00 98.1 61 20 155/81 (105) 96 07/25/19 09:38 97.2 07/25/19 09:08 62 125/66 07/25/19 09:08 125/66 07/25/19 09:00 Nasal Cannula 3.0 07/25/19 08:00 60 07/25/19 08:00 97.2 62 20 125/66 (85) 96 Intake and Output 07/25/19 07/26/19 18:59 06:59 Intake Total 120 ml 100 ml Output Total 302 ml Balance -182 ml 100 ml Intake Oral 120 ml 100 ml Output Urine Total 302 ml # Voids 3 3 Height (Feet): 5 Height (Inches): 4.00 Weight (Pounds): 153 Objective General Appearance: WD/WN, alert Neck: supple Cardiovascular: regular rhythm Respiratory/Chest: decreased breath sounds Abdomen: normal bowel sounds, non tender, soft, no organomegaly Edema: no edema noted Arm (L), no edema noted Arm (R), no edema noted Leg (L), no edema noted Leg (R), no edema noted Pedal (L), no edema noted Pedal (R), no edema noted 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
--- NOTE | 2019-07-26 07:30 | NUR ---
NURSE NOTES: Received report from TABITHA Foster. The patient is resting on the bed without acute distress or shortness of breath. The patient is on 2L NC as ordered and saturation is above 95%. The patient's bed in the lowest position, call light in reach, and fall and aspiration precaution reinforced. IV site intact and patent. Will continue plan of care.
--- NOTE | 2019-07-26 07:42 | NUR ---
HAND-OFF: Report given to TABITHA Madrid, patient in stable condition, plan of care endorsed.
[2019-07-26] MEDS: Metoprolol Succinate XL 25mg tab ORAL SCH (09:00)
--- NOTE | 2019-07-26 09:02 | Pulmonology Progress Note ---
Assessment/Plan Assessment/Plan Impression: Pneumonia, diffuse VQ indeterminate but mostly matched defects Congestive heart Failure Hypertension Chronic Obstructive Pulmonary Disease Interstitial pulmonary disease bilateral DVT - status post IVC filter Hypothyroidism ES pulmonary fibrosis with honeycombing and bronchiectasis Plan: IV ABx ? po Bactrim Diuresis and monitor imaging- likely residual edema on Lovenox for PE dosing- may change to eliquis maintain meds O2 PRN HHN Monitor labs Aspiration precautions monitor oxygen needs and acid base impression, plan, and exam edited and reviewed in detail care discussed with RN Subjective ROS Limited/Unobtainable: Yes Allergies: Coded Allergies: No Known Allergies (Verified , 11/17/06) Subjective care noted and reviewed CTPA and duplex noted on anticoag no distress Objective Last 24 Hour Vital Signs Date Time Temp Pulse Resp B/P (MAP) Pulse Ox O2 Delivery O2 Flow Rate FiO2 07/26/19 08:00 97.5 58 20 142/80 (100) 95 07/26/19 05:37 154/76 07/26/19 05:37 154/76 07/26/19 05:30 154/76 (102) 07/26/19 04:00 98.1 76 20 121/76 (91) 98 07/26/19 04:00 60 07/26/19 00:00 67 07/26/19 00:00 119/72 07/26/19 00:00 98.3 72 18 119/72 (88) 97 07/25/19 21:26 145/81 07/25/19 21:00 60 145/81 (102) 07/25/19 21:00 Nasal Cannula 3.0 07/25/19 20:00 98.7 70 20 118/74 (89) 94 07/25/19 20:00 70 07/25/19 17:12 104/61 07/25/19 17:11 104/61 07/25/19 16:00 97.5 61 20 104/61 (75) 94 07/25/19 16:00 60 07/25/19 14:40 110/68 07/25/19 12:51 98.1 07/25/19 12:20 155/81 07/25/19 12:00 63 07/25/19 12:00 98.1 61 20 155/81 (105) 96 07/25/19 09:38 97.2 07/25/19 09:08 62 125/66 07/25/19 09:08 125/66 Intake and Output 07/25/19 07/26/19 18:59 06:59 Intake Total 120 ml 100 ml Output Total 302 ml Balance -182 ml 100 ml Intake Oral 120 ml 100 ml Output Urine Total 302 ml # Voids 3 3 Objective WDWN NAD reduced breath sounds bilaterally with scattered rhonchi [id number] without MRG NABS nontender no HSM no CCE nonfocal reviewed and edited Microbiology Date/Time Source Procedure Growth Status 07/24/19 00:15 Sputum Expectorated Gram Stain - Final Complete 07/24/19 00:15 Sputum Expectorated Sputum Culture - Final NORMAL UPPER RESPIRATORY COLBY PRESENT Complete Current Medications Medications (Trade) Dose Ordered Sig/Roseline Route PRN Reason Start Time Stop Time Status Last Admin Dose Admin Acetaminophen/ Hydrocodone Bitart ([place] 5/325) 1 tab Q4H PRN ORAL Moderate Pain (Pain Scale 4-6) 07/20/19 14:00 07/27/19 13:59 07/25/19 09:08 Aspirin (Ecotrin) 81 mg DAILY ORAL 07/21/19 09:00 08/20/19 08:59 07/25/19 09:08 Clonidine HCl (Catapres Tab) 0.1 mg EVERY 6 HOURS ORAL 07/20/19 14:00 08/19/19 13:59 07/26/19 05:37 Doxycycline Monohydrate (Doxycycline Monohydrate) 100 mg EVERY 12 HOURS ORAL 07/20/19 21:00 07/27/19 20:59 07/25/19 21:19 Furosemide (Lasix) 40 mg DAILY IV 07/24/19 09:00 08/23/19 08:59 07/25/19 09:09 Guaifenesin (Robitussin) 100 mg Q4H PRN ORAL For Cough 07/23/19 15:15 08/22/19 15:14 07/24/19 17:18 Hydralazine HCl (Apresoline) 25 mg Q6H PRN ORAL SBP > 180mmHg 07/20/19 15:00 08/19/19 14:59 Hydralazine HCl (Apresoline) 50 mg EVERY 8 HOURS ORAL 07/25/19 22:00 08/19/19 13:59 07/26/19 05:37 Hydromorphone HCl (Dilaudid) 1 mg Q4H PRN IVP Severe Pain (Pain Scale 7-10) 07/20/19 14:00 07/27/19 13:59 07/25/19 22:01 Levothyroxine Sodium (Synthroid) 100 mcg DAILY@0630 ORAL 07/21/19 06:30 08/20/19 06:29 07/26/19 05:36 Lisinopril (Prinivil) 20 mg BID ORAL 07/20/19 18:00 08/19/19 17:59 07/25/19 09:08 Methylprednisolone Sodium Succinate (Solu-MEDROL) 40 mg DAILY IVP 07/26/19 09:00 08/25/19 08:59 Metoprolol Succinate (Toprol XL) 25 mg DAILY ORAL 07/20/19 15:00 08/19/19 14:59 07/25/19 09:08 Ondansetron HCl (Zofran) 4 mg Q6H PRN IVP Nausea & Vomiting 07/20/19 15:00 08/19/19 14:59 Pantoprazole (Protonix) 40 mg DAILY ORAL 07/21/19 09:00 08/20/19 08:59 07/25/19 09:08 Piperacillin Sod/ Tazobactam Sod 3.375 gm/Sodium Chloride 110 ml @ 27.5 mls/hr EVERY 8 HOURS IVPB 07/20/19 22:00 07/30/19 21:59 07/26/19 05:36 Simethicone (Mylicon) 80 mg Q6H PRN ORAL GAS 07/23/19 15:15 08/22/19 15:14 07/25/19 21:24 Hany Hampton MD Jul 26, 2019 09:02
[2019-07-26] MEDS: Aspirin EC 81mg tab ORAL SCH (09:04)
[2019-07-26] MEDS: Solu-MEDROL 40mg Inj IVP SCH (09:04)
[2019-07-26] MEDS: Doxycycline Monohydrate 100mg ORAL SCH ×2 (09:04→21:50)
[2019-07-26] MEDS: Lisinopril 20mg tab ORAL SCH ×2 (09:05→17:59)
[2019-07-26] MEDS: HYDROcodone/Acetamin 5/325 tab ORAL PRN (09:11)
--- NOTE | 2019-07-26 09:30 | NUR ---
NURSE NOTES: Communicated with Dr. Nguyen regarding discontinuation of Enoxaparin. Per Dr. Nguyen, would like to start Heparin 5000 unit SQ BID for DVT prophylasix after discontinuation of Enoxaparin. Also, Dr. Nguyen cancelled repeated 2D ECHO after getting the 2D ECHO result that was done on 07/22. The patient is stable without acute distress or shortness of breath. Will continue plan of care.
--- NOTE | 2019-07-26 10:39 | Infectious Diseases Prog Note ---
"Assessment/Plan Assessment/Plan antibiotics : zosyn, doxycycline A 1. pneumonia 2. COPD 3. CHF 4. bronchiectasis 5. hypothyroidism 6. pulmonary fibrosis P 1. continue zosyn, po doxycycline 2. will follow up cultures 3. CT abdomen | pelvis Subjective Constitutional: Denies: fever, chills Respiratory: Denies: shortness of breath, dry cough Gastrointestinal/Abdominal: Denies: nausea, vomiting, diarrhea Musculoskeletal: Reports: pain - in back Allergies: Coded Allergies: No Known Allergies (Verified , 11/17/06) Objective Vital Signs Last 24 Hour Vital Signs Date Time Temp Pulse Resp B/P (MAP) Pulse Ox O2 Delivery O2 Flow Rate FiO2 07/26/19 09:05 142/80 07/26/19 09:00 58 142/80 07/26/19 08:00 97.5 58 20 142/80 (100) 95 07/26/19 05:37 154/76 07/26/19 05:37 154/76 07/26/19 05:30 154/76 (102) 07/26/19 04:00 98.1 76 20 121/76 (91) 98 07/26/19 04:00 60 07/26/19 00:00 67 07/26/19 00:00 119/72 07/26/19 00:00 98.3 72 18 119/72 (88) 97 07/25/19 21:26 145/81 07/25/19 21:00 60 145/81 (102) 07/25/19 21:00 Nasal Cannula 3.0 07/25/19 20:00 98.7 70 20 118/74 (89) 94 07/25/19 20:00 70 07/25/19 17:12 104/61 07/25/19 17:11 104/61 07/25/19 16:00 97.5 61 20 104/61 (75) 94 07/25/19 16:00 60 07/25/19 14:40 110/68 07/25/19 12:51 98.1 07/25/19 12:20 155/81 07/25/19 12:00 63 07/25/19 12:00 98.1 61 20 155/81 (105) 96 Height (Feet): 5 Height (Inches): 4.00 Weight (Pounds): 153 Respiratory/Chest: lungs clear Cardiovascular: normal rate, regular rhythm, no gallop/murmur Abdomen: soft, non tender Extremities: no edema Microbiology Date/Time Source Procedure Growth Status 07/24/19 00:15 Sputum Expectorated Gram Stain - Final Complete 07/24/19 00:15 Sputum Expectorated Sputum Culture - Final NORMAL UPPER RESPIRATORY COLBY PRESENT Complete Current Medications Medications (Trade) Dose Ordered Sig/Roseline Route PRN Reason Start Time Stop Time Status Last Admin Dose Admin Acetaminophen/ Hydrocodone Bitart ([place] 5/325) 1 tab Q4H PRN ORAL Moderate Pain (Pain Scale 4-6) 07/20/19 14:00 07/27/19 13:59 07/26/19 09:11 Aspirin (Ecotrin) 81 mg DAILY ORAL 07/21/19 09:00 08/20/19 08:59 07/26/19 09:04 Clonidine HCl (Catapres Tab) 0.1 mg EVERY 6 HOURS ORAL 07/20/19 14:00 08/19/19 13:59 07/26/19 05:37 Doxycycline Monohydrate (Doxycycline Monohydrate) 100 mg EVERY 12 HOURS ORAL 07/20/19 21:00 07/27/19 20:59 07/26/19 09:04 Furosemide (Lasix) 40 mg DAILY IV 07/24/19 09:00 08/23/19 08:59 07/26/19 09:04 Guaifenesin (Robitussin) 100 mg Q4H PRN ORAL For Cough 07/23/19 15:15 08/22/19 15:14 07/24/19 17:18 Hydralazine HCl (Apresoline) 25 mg Q6H PRN ORAL SBP > 180mmHg 07/20/19 15:00 08/19/19 14:59 Hydralazine HCl (Apresoline) 50 mg EVERY 8 HOURS ORAL 07/25/19 22:00 08/19/19 13:59 07/26/19 05:37 Hydromorphone HCl (Dilaudid) 1 mg Q4H PRN IVP Severe Pain (Pain Scale 7-10) 07/20/19 14:00 07/27/19 13:59 07/25/19 22:01 Levothyroxine Sodium (Synthroid) 100 mcg DAILY@0630 ORAL 07/21/19 06:30 08/20/19 06:29 07/26/19 05:36 Lisinopril (Prinivil) 20 mg BID ORAL 07/20/19 18:00 08/19/19 17:59 07/26/19 09:05 Methylprednisolone Sodium Succinate (Solu-MEDROL) 40 mg DAILY IVP 07/26/19 09:00 08/25/19 08:59 07/26/19 09:04 Metoprolol Succinate (Toprol XL) 25 mg DAILY ORAL 07/20/19 15:00 08/19/19 14:59 07/25/19 09:08 Ondansetron HCl (Zofran) 4 mg Q6H PRN IVP Nausea & Vomiting 07/20/19 15:00 08/19/19 14:59 Pantoprazole (Protonix) 40 mg DAILY ORAL 07/21/19 09:00 08/20/19 08:59 07/26/19 09:05 Piperacillin Sod/ Tazobactam Sod 3.375 gm/Sodium Chloride 110 ml @ 27.5 mls/hr EVERY 8 HOURS IVPB 07/20/19 22:00 07/30/19 21:59 07/26/19 05:36 Simethicone (Mylicon) 80 mg Q6H PRN ORAL GAS 07/23/19 15:15 08/22/19 15:14 07/25/19 21:24 Sly Li MD Jul 26, 2019 10:39"
[2019-07-26] MEDS ORDERED: Omnipaque-300 100ml vial INJ PRN (10:45)
--- NOTE | 2019-07-26 11:00 | NUR ---
NURSE NOTES: Communicated with Dr. Li regarding CT of abdomen and pelvis with contrast order. Per Dr. Hernandez, CT of abdomen and pelvis only with oral contrast. Communicated with tap and die maker technician regarding clarification of the order. The patient is stable without acute distress or shortness of breath. Will continue plan of care.
--- NOTE | 2019-07-26 11:32 | NUR ---
DISCHARGE PLANNING CLINICALS FAXED TO [facility] T: [phone] F: [phone] Addendum: 07/26/19 at [facility] by SKY THOMPSON LVN LVN ROOM 231-1 CONFIRMED AT [facility] BY ELZBIETA MOLINA NOTIFIED NO DISCHARGE ORDER OF YET
--- NOTE | 2019-07-26 13:10 | NUR ---
NURSE NOTES: The patient went down for CT of abdomen and pelvis with oral contrast with off tele order. Will continue plan of care as soon as the patient comes back to the floor.
--- NOTE | 2019-07-26 13:40 | Diagnostic Imaging Report ---
APPROVED REPORT CPT Code: 94792 Present Symptoms Comments: BILATERAL LEGS PAIN. RIGHT LEG: Venous imaging reveals acute thrombus in the common femoral, superficial femoral veins. Imaging also reveals patency of the popliteal and calf veins (posterior tibial and anterior tibial) calf veins. Acute thrombus also noted in Greater saphenous vein. LEFT LEG: Venous imaging reveals acute thrombus in the common femoral and superficial femoral veins to popliteal vein.Venous imaging also reveals acute thrombus in the calf vein (posterior tibial). Acute thrombus also noted in Greater saphenous vein. . Acute thrombus also noted in Greater saphenous vein. TABITHA TODD WAS INFORMED AT 15:45.
--- NOTE | 2019-07-26 13:50 | NUR ---
NURSE NOTES: The patient is back to the floor in a safe manner. The patient denies of acute distress or shortness of breath. Will continue plan of care.
[2019-07-26] MEDS: HYDROmorphone 1mg/ml Carpuject IVP PRN ×2 (15:24→20:06)
[2019-07-26] MEDS ORDERED: NS 275ml ONE (15:46)
--- NOTE | 2019-07-26 16:38 | Cardiology Report ---
APPROVED REPORT EXAM: Two-dimensional and M-mode echocardiogram with Doppler and color Doppler. INDICATION Congestive Heart Failure M-Mode DIMENSIONS IVSd1.6 (0.7-1.1cm)Left Atrium (MM)3.1 (1.6-4.0cm) LVDd3.9 (3.5-5.6cm)Aortic Root2.9 (2.0-3.7cm) PWd1.6 (0.7-1.1cm)Aortic Cusp Exc.1.7 (1.5-2.0cm) IVSs1.8 cm LVDs2.7 (2.5-4.0cm) PWs1.9 cm Normal left ventricular chamber size, systolic function and wall motion. Left ventricular ejection fraction estimated to be 60 %. Mild left ventricular hypertrophy. No evidence of pericardial effusion. Mild left atrial enlargement. Right cardiac chamber sizes are mildly enlarged. Focal aortic valve sclerosis with adequate cusp excursion. Thickened mitral valve leaflets with normal excursion. Mitral annulus and aortic root calcification. Normal pulmonic valve structure. Normal tricuspid valve structure. IVC at normal size with slight physiologic collapse. Pacemaker wire present in the right side chambers. A color flow and spectral Doppler study was performed and revealed: Mild aortic regurgitation. Trace mitral regurgitation. Mitral diastolic velocities suggest mild LV diastolic dysfunction (Grade I ). Mild tricuspid regurgitation. Tricuspid systolic velocities suggests peak right ventricular systolic pressure of 47 mmHg consistent with moderate pulmonary hypertension. Pulmonic regurgitation present.
--- NOTE | 2019-07-26 17:00 | NUR ---
NURSE NOTES: The patient is stable without acute distress or shortness of breath. Will continue plan of care.
--- NOTE | 2019-07-26 17:07 | Diagnostic Imaging Report ---
Indication: Abdominal pain and back pain Technique: Spiral acquisitions obtained through the abdomen and pelvis. Patient ingested a limited amount of enteric contrast. No IV contrast utilized, per referring physician request.. Multiplanar reconstructions were generated. Total dose length product 862 mGycm. CTDIvol(s) 15 mGy. Dose reduction achieved using automated exposure control Comparison: 12/24/2006 contrast study Findings: The appendix is normal. There is a mild amount of retained colonic stool. There is colonic diverticulosis. No evidence of diverticulitis. No small bowel distention. Ingested contrast has traversed the entirety of the small bowel, and reaches far distally as the proximal ascending colon. No free or loculated intraperitoneal gas or fluid is evident. The distal esophagus, stomach, duodenum are unremarkable. Lack of IV contrast limits assessment of the solid organs. The liver and gallbladder are unremarkable. There is mild ectasia of the extrahepatic bile ducts, no significant change from previously. The pancreas, spleen, adrenals are unremarkable. The right kidney demonstrates a lower pole cyst, not evident previously. The left kidney is grossly unremarkable. No renal or ureteral calculi, hydronephrosis, or hydroureter. The bladder is somewhat distended, otherwise unremarkable. The uterus is absent. No pelvic mass or adenopathy. Again demonstrated is an inferior vena cava filter. There is evidence of interim spinal fusion surgery. There is considerable degenerative lumbar spondylosis changes noted. There is a wedge compression fracture deformity of the L1 vertebral body. This is not evident on the previous exam. The included lung bases demonstrate extensive honeycombing and confluent opacity, markedly increased from the previous study. This is also described on recent chest CT Impression: No definite acute abnormality Colonic diverticulosis. No evidence of diverticulitis Mild extra hepatic biliary ductal ectasia, probably related to age. Correlate with liver function tests, consider MRCP if clinically indicated L1 vertebral body compression fracture deformity. Acuity indeterminate but new since previous 2006 exam. It is also new since a lumbar spine MRI of 2011 Basilar pulmonary parenchymal honeycombing, consistent with chronic interstitial fibrosis, also described on recent 07/21/[address] Other findings as noted, including evidence of prior spinal fusion surgery, degenerative lumbar spondylosis, inferior vena cava filter, right renal cyst The CT scanner at [facility] is accredited by the [employer] and the scans are performed using protocols designed to limit radiation exposure to as low as reasonably achievable to attain images of sufficient resolution adequate for diagnostic evaluation.
--- NOTE | 2019-07-26 19:20 | NUR ---
HAND-OFF: Report given to TABITHA Lopez. The patient is resting on the bed without acute distress or shortness of breath. The patient's bed in the lowest position, call light in reach, and fall and aspiration precaution reinforced. IV site intact and patent. The patient is on 2L NC as ordered. The patient's skin is intact. Asked TABITHA Lopez to follow up with CT of Abdomen and Pelvis with oral contrast. Endorsed plan of care.
--- NOTE | 2019-07-26 19:45 | NUR ---
NURSE NOTES: Pt received from TABITHA Madrid alert and oriented x4 with no acute s/s of distress noted. IV site asymptomatic and patent on L ac 18g, saline lock. Bed in lowest position, bed alarm on. Call light and belongings within reach.
--- NOTE | 2019-07-26 20:00 | NUR ---
NURSE NOTES: Endorsed to Dr. Nguyen that [place] 5/325 q4h for moderate pain and Dilaudid 1 mg q4h for severe pain is about to on 07/27. Per Dr. Nguyen, pls renew both orders. Will carry out order appropriately.
[2019-07-26] MEDS ORDERED: HYDROcodone/Acetamin 5/325 tab ORAL PRN (20:15)
[2019-07-26] MEDS: Heparin 5000 units/ml inj SUBQ SCH (21:55)
[2019-07-26] MEDS: guaiFENesin 100mg/5ml Liq ud ORAL PRN (23:23)
[2019-07-27] VITALS: BP 152/86
[2019-07-27] MEDS: HYDROmorphone 1mg/ml Carpuject IVP PRN ×2 (00:59→07:56)
--- NOTE | 2019-07-27 01:45 | Progress Note ---
DATE: 07/26/2019 CARDIOLOGY PROGRESS NOTE SUBJECTIVE: The patient seen and examined. Case discussed with Dr. Nguyen. The patient has persistent shortness of breath with activity and profound weakness as well as pain in her legs. Acute pulmonary embolism was ruled out on CT angiogram of the chest. OBJECTIVE: VITAL SIGNS: Blood pressure 128/67, pulse 61, respirations 17. LUNGS: Diminished breath sounds. CARDIAC: Regular rhythm and rate. Normal S1, S2 with a 1/6 systolic apical murmur. ABDOMEN: Soft. EXTREMITIES: 1+ dependent edema. IMPRESSION: 1. Acute on chronic diastolic congestive heart failure, predominantly right-sided. 2. Permanent pacemaker. 3. Conduction system disease of the heart. 4. History of DVT and prior pulmonary embolism. No evidence of acute pulmonary embolism. The patient has IVC filter. 5. History of diverticulosis and gastrointestinal bleeding. 6. Chronic obstructive pulmonary disease. 7. Hypertensive cardiomyopathy. RECOMMENDATION: 1. Discontinue anticoagulation. 2. Maintain anti-platelet therapy and DVT prophylaxis. 3. Cautious diuresis. 4. Taper steroids. 5. Titrate anti-failure regimen. 6. Mobilize. Edvin Grewal M.D. DR: EMELINA JOB#: [id number] CC:
[2019-07-27 04:00] VITALS: BP 118/71
[2019-07-27] MEDS: HydrALAZINE 50mg tab ORAL SCH (05:35)
[2019-07-27] MEDS: Piperacillin/Tazobactam 3.375 GM in NS 110 ML IVPB SCH (05:35)
--- NOTE | 2019-07-27 07:30 | NUR ---
NURSE NOTES: Received report from TABITHA Lopez. The patient is resting on the bed without acute distress or shortness of breath. The patient is on 2L NC as ordered and saturation within normal range. The patient's bed in the lowest position, call light in reach, and fall and aspiration precaution reinforced. IV site intact and patent. Will continue plan of care.
--- NOTE | 2019-07-27 07:31 | NUR ---
HAND-OFF: Report given to TABITHA Madrid. Plan of care endorsed.
[2019-07-27 08:00] VITALS: BP 130/70
[2019-07-27 09:03] LABS: BASOPHILS % (AUTO) 1.4 % (0.0-2.0); EOSINOPHILS % (AUTO) 0.9 % (0.0-3.0); HEMOGLOBIN 15.1 G/DL (12.0-16.0); LYMPHOCYTES % (AUTO) 39.8 % (20.0-45.0); MEAN CORPUSCULAR VOLUME 95 FL (80-99); MONOCYTES % (AUTO) 9.5 % (1.0-10.0); NEUTROPHILS % (AUTO) 48.4 % (45.0-75.0); PLATELET COUNT 214 K/UL (150-450); RED BLOOD COUNT 4.96 M/UL (4.20-5.40); RED CELL DISTRIBUTION WIDTH 12.1 % (11.6-14.8)
[2019-07-27] MEDS: Aspirin EC 81mg tab ORAL SCH (09:08)
[2019-07-27] MEDS: Solu-MEDROL 40mg Inj IVP SCH (09:08)
[2019-07-27] MEDS: Metoprolol Succinate XL 25mg tab ORAL SCH (09:08)
[2019-07-27] MEDS: Lisinopril 20mg tab ORAL SCH (09:08)
[2019-07-27] MEDS: Doxycycline Monohydrate 100mg ORAL SCH (09:08)
[2019-07-27] MEDS: Heparin 5000 units/ml inj SUBQ SCH (09:09)
[2019-07-27] MEDS ORDERED: PRINIVIL20 MG ORAL (09:16)
[2019-07-27] MEDS ORDERED: DOXYCYCLINE HY100 M2 ORAL (09:16)
[2019-07-27] MEDS ORDERED: NORCO 5-325 TA1 EACH ORAL (09:16)
[2019-07-27] MEDS ORDERED: METHYLPREDNISOL40 MG IVP (09:16)
[2019-07-27] MEDS ORDERED: DEMADEX10 MG IV (09:16)
[2019-07-27] MEDS ORDERED: CLONIDINE0.1 MG ORAL (09:16)
[2019-07-27] MEDS ORDERED: HYDRALAZINE HCL25 M1 ORAL (09:16)
[2019-07-27] MEDS ORDERED: APRESOLINE50 MG ORAL (09:16)
[2019-07-27] MEDS ORDERED: PANTOPRAZOLE SO40 MG ORAL (09:16)
[2019-07-27] MEDS ORDERED: ASPIRIN EC81 MG ORAL (09:16)
[2019-07-27] MEDS ORDERED: SYNTHROID100 MCG ORAL (09:16)
[2019-07-27] MEDS ORDERED: ZOSYN 3.373.375 GM/1 IVPB (09:16)
[2019-07-27 09:20] LABS: ALANINE AMINOTRANSFERASE 16 U/L (12-78); ALBUMIN 2.6 G/DL (3.4-5.0); ALBUMIN/GLOBULIN RATIO 0.5 (1.0-2.7); ALKALINE PHOSPHATASE 70 U/L (46-116); ANION GAP 4 mmol/L (5-15); ASPARTATE AMINO TRANSFERASE 20 U/L (15-37); BILIRUBIN,TOTAL 0.7 MG/DL (0.2-1.0); BLOOD UREA NITROGEN 30 mg/dL (7-18); CALCIUM 9.2 MG/DL (8.5-10.1); CARBON DIOXIDE 39 MMOL/L (21-32); CHLORIDE 99 MMOL/L (98-107); CREATININE 0.8 MG/DL (0.55-1.30); POTASSIUM 3.1 MMOL/L (3.5-5.1); SODIUM 142 MMOL/L (136-145)
--- NOTE | 2019-07-27 09:40 | NUR ---
DISCHARGE PLAN PATIENT IS RETURNING TO [facility] ROOM 231-1 SKILLED T: [phone] FOR NURSE TO NURSE REPORT [facility] HAS BEEN ARRANGED FOR 1100 DATE PULLER SPOKE WITH PATIENT'S SISTER,YUE, WHO IS IN AGREEMENT WITH DISCHARGE PLAN
--- NOTE | 2019-07-27 09:50 | NUR ---
NURSE NOTES: Clarification made with Dr. Nguyen regarding discharge order. The patient will be discharged back to [facility] @ room 231-[address]. [address] Dr. Nguyen, keep IV line and 2L NC continuous oxygen upon discharge. Will continue plan of care.
--- NOTE | 2019-07-27 10:33 | Infectious Diseases Prog Note ---
Assessment/Plan Assessment/Plan antibiotics : zosyn, doxycycline A 1. pneumonia 2. COPD 3. CHF 4. bronchiectasis 5. hypothyroidism 6. pulmonary fibrosis P 1. d/c zosyn, po doxycycline 2. start and continue po levoquin 2 more days 3. will follow up cultures Subjective Constitutional: Denies: fever, chills Respiratory: Reports: shortness of breath - decreased, productive cough - decreased Gastrointestinal/Abdominal: Denies: nausea, vomiting, diarrhea Musculoskeletal: Reports: pain - back and left arm Allergies: Coded Allergies: No Known Allergies (Verified , 11/17/06) Objective Vital Signs Last 24 Hour Vital Signs Date Time Temp Pulse Resp B/P (MAP) Pulse Ox O2 Delivery O2 Flow Rate FiO2 07/27/19 09:08 60 130/70 07/27/19 09:08 130/70 07/27/19 08:00 97.6 60 18 130/70 (90) 95 07/27/19 05:35 149/81 07/27/19 05:35 149/81 07/27/19 04:00 97.2 61 17 118/71 (87) 98 07/27/19 04:00 65 07/27/19 00:55 162/86 07/27/19 00:00 62 07/27/19 00:00 97.8 63 17 152/86 (108) 98 07/26/19 21:50 157/84 07/26/19 21:00 Nasal Cannula 2.0 07/26/19 20:00 62 07/26/19 20:00 97.6 61 19 157/84 (108) 97 07/26/19 17:59 133/75 07/26/19 17:59 133/75 07/26/19 16:00 97.3 62 20 136/83 (100) 96 07/26/19 16:00 60 07/26/19 14:13 140/73 07/26/19 12:30 146/74 07/26/19 12:00 96.6 61 20 146/74 (98) 95 07/26/19 12:00 60 Height (Feet): 5 Height (Inches): 4.00 Weight (Pounds): 149 Laboratory Tests Test 07/27/19 08:30 White Blood Count 5.0 K/UL (4.8-10.8) Red Blood Count 4.96 M/UL (4.20-5.40) Hemoglobin 15.1 G/DL (12.0-16.0) Hematocrit 47.0 % (37.0-47.0) Mean Corpuscular Volume 95 FL (80-99) Mean Corpuscular Hemoglobin 30.5 PG (27.0-31.0) Mean Corpuscular Hemoglobin Concent 32.3 G/DL (32.0-36.0) Red Cell Distribution Width 12.1 % (11.6-14.8) Platelet Count 214 K/UL (150-450) Mean Platelet Volume 7.9 FL (6.5-10.1) Neutrophils (%) (Auto) 48.4 % (45.0-75.0) Lymphocytes (%) (Auto) 39.8 % (20.0-45.0) Monocytes (%) (Auto) 9.5 % (1.0-10.0) Eosinophils (%) (Auto) 0.9 % (0.0-3.0) Basophils (%) (Auto) 1.4 % (0.0-2.0) Sodium Level 142 MMOL/L (136-145) Potassium Level 3.1 MMOL/L (3.5-5.1) L Chloride Level 99 MMOL/L (98-107) Carbon Dioxide Level 39 MMOL/L (21-32) H Anion Gap 4 mmol/L (5-15) L Blood Urea Nitrogen 30 mg/dL (7-18) H Creatinine 0.8 MG/DL (0.55-1.30) Estimat Glomerular Filtration Rate mL/min (>60) Glucose Level 104 MG/DL (74-106) Calcium Level 9.2 MG/DL (8.5-10.1) Total Bilirubin 0.7 MG/DL (0.2-1.0) Aspartate Amino Transf (AST/SGOT) 20 U/L (15-37) Alanine Aminotransferase (ALT/SGPT) 16 U/L (12-78) Alkaline Phosphatase 70 U/L (46-116) Total Protein 8.1 G/DL (6.4-8.2) Albumin 2.6 G/DL (3.4-5.0) L Globulin 5.5 g/dL Albumin/Globulin Ratio 0.5 (1.0-2.7) L Current Medications Medications (Trade) Dose Ordered Sig/Roseline Route PRN Reason Start Time Stop Time Status Last Admin Dose Admin Acetaminophen/ Hydrocodone Bitart ([place] 5/325) 1 tab Q4H PRN ORAL Moderate Pain (Pain Scale 4-6) 07/26/19 20:15 08/02/19 20:14 Aspirin (Ecotrin) 81 mg DAILY ORAL 07/21/19 09:00 08/20/19 08:59 07/27/19 09:08 Barium Sulfate (Readi-Cat 2) 450 ml NOW PRN ORAL Radiology Procedure 07/26/19 10:45 07/28/19 10:39 Clonidine HCl (Catapres Tab) 0.1 mg EVERY 6 HOURS ORAL 07/20/19 14:00 08/19/19 13:59 07/27/19 05:35 Doxycycline Monohydrate (Doxycycline Monohydrate) 100 mg EVERY 12 HOURS ORAL 07/20/19 21:00 07/27/19 20:59 07/27/19 09:08 Furosemide (Lasix) 40 mg DAILY IV 07/24/19 09:00 08/23/19 08:59 07/27/19 09:07 Guaifenesin (Robitussin) 100 mg Q4H PRN ORAL For Cough 07/23/19 15:15 08/22/19 15:14 07/26/19 23:23 Heparin Sodium (Porcine) (Heparin 5000 units/ml) 5,000 units Q12HR SUBQ 07/26/19 21:00 08/25/19 20:59 07/27/19 09:09 Hydralazine HCl (Apresoline) 25 mg Q6H PRN ORAL SBP > 180mmHg 07/20/19 15:00 08/19/19 14:59 Hydralazine HCl (Apresoline) 50 mg EVERY 8 HOURS ORAL 07/25/19 22:00 08/19/19 13:59 07/27/19 05:35 Hydromorphone HCl (Dilaudid) 1 mg Q4H PRN IVP Severe Pain (Pain Scale 7-10) 07/26/19 20:15 08/02/19 20:14 07/27/19 07:56 Iohexol (OMNIPAQUE-300 100ml) 100 ml NOW PRN INJ Radiology Procedure 07/26/19 10:45 07/28/19 10:39 Levothyroxine Sodium (Synthroid) 100 mcg DAILY@0630 ORAL 07/21/19 06:30 08/20/19 06:29 07/27/19 05:35 Lisinopril (Prinivil) 20 mg BID ORAL 07/20/19 18:00 08/19/19 17:59 07/27/19 09:08 Methylprednisolone Sodium Succinate (Solu-MEDROL) 40 mg DAILY IVP 07/26/19 09:00 08/25/19 08:59 07/27/19 09:08 Metoprolol Succinate (Toprol XL) 25 mg DAILY ORAL 07/20/19 15:00 08/19/19 14:59 07/27/19 09:08 Ondansetron HCl (Zofran) 4 mg Q6H PRN IVP Nausea & Vomiting 07/20/19 15:00 08/19/19 14:59 Pantoprazole (Protonix) 40 mg DAILY ORAL 07/21/19 09:00 08/20/19 08:59 07/27/19 09:08 Piperacillin Sod/ Tazobactam Sod 3.375 gm/Sodium Chloride 110 ml @ 27.5 mls/hr EVERY 8 HOURS IVPB 07/20/19 22:00 07/30/19 21:59 07/27/19 05:35 Simethicone (Mylicon) 80 mg Q6H PRN ORAL GAS 07/23/19 15:15 08/22/19 15:14 07/25/19 21:24 Sly Li MD Jul 27, 2019 10:33
--- NOTE | 2019-07-27 10:40 | NUR ---
NURSE NOTES: Clarification made with Dr. Nguyen regarding the patient's discharge order. The patient will go back to [facility] room 231-1. Because of IV medication upon discharge, Dr. Nguyen ordered the patient to keep IV line upon discharge. Dr. Nguyen ordered continuous oxygen 2L NC upon discharge. Based on the blood test result, Dr. Nguyen ordered KCL 40mEq PO once for hypokalemia. Clarification made regarding antibiotics therapy upon discharge with Dr. Li. Per Dr. Li, discontinue Zosyn IVPB and start on Levofloxacin 500mg 1tab PO QD for day one and Levofloxacin 250mg 1tab PO QD for day 2 and 3. Clarification made with Dr. Nguyen regarding blood thinner medication for possible PE. Per Dr. Ngyuen, since it is not PE no need to be on blood thinner other than baby aspirin. Will carry out the discharge order as ordered. Will continue plan of care until transportation comes.
[2019-07-27] MEDS ORDERED: Levofloxacin 500mg tab ORAL SCH (10:45)
[2019-07-27] MEDS ORDERED: LEVOFLOXACIN250 MG ORAL (11:05)
[2019-07-27 12:00] VITALS: BP 120/58
--- NOTE | 2019-07-27 12:20 | NUR ---
NURSE NOTES: The patient got safely discharged back to [facility] @ 231-1 via [facility]'s ambulance personnels' support and transportation. The patient has been stable in terms of physical conditions and vital signs. The patient will be on 2L NC and IV line as ordered by Dr. Nguyen upon discharge. Removed nameband and telebox by the primary nurse. Informed the patient's discharge back to [facility] to Ms. Light, sister. Nurse to nurse report including continuation of medication therapy, the patient's course of hospitalization, result of testings, and the patient's condition were given to Darwin, who is a receiving nurse @ [facility]. Interfacility form completed with packet and handed to ambulance personnel. Discharge instruction given to the patient and Darwin, the receiving nurse, and signed by the patient. The patient's belongings checked with the patient and signed by the patient. The patient's skin is intact. 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 The patient got safely discharged back to [facility] via [facility] transportation with the nurse and ambulance personnels' support.
--- NOTE | 2019-07-28 00:15 | Progress Note ---
DATE: 07/27/2019 CARDIOLOGY PROGRESS NOTE SUBJECTIVE: Condition largely unchanged. Slightly less short of breath. No chest pain. She is off anticoagulation. OBJECTIVE: VITAL SIGNS: Blood pressure 130/70, pulse 60, and respirations 18. LUNGS: With diminished breath sounds. No wheezing or rales. CARDIAC: Regular rhythm and rate. Normal S1, paradoxically split S2. A 1/6 systolic apical murmur. ABDOMEN: Soft and obese. EXTREMITIES: With trace to 1+ lower extremity pitting edema. IMPRESSION: 1. No evidence of acute pulmonary embolus. 2. 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 3. Acute on chronic diastolic congestive heart failure, mostly right-sided. 4. Permanent pacemaker with stable function. 5. Hypertensive heart disease with labile blood pressure, improved. 6. Chronic obstructive pulmonary disease with no active bronchospasm. 7. History of diverticulosis and gastrointestinal bleeding. PLAN: [facility] 2. Will need aggressive therapy to mobilize. Otherwise, titrating current cardiovascular regimen is appropriate with titrating dose of oral diuretics to follow. 3. Anti-platelet therapy. No anticoagulation. 4. Repeat pacemaker interrogation in 6 months. Edvin Grewal M.D. DR: ALICE JOB#: [id number] CC:
--- NOTE | 2019-07-28 06:15 | Discharge Summary ---
DATE OF ADMISSION: 07/20/2019 DATE OF DISCHARGE: 07/27/2019 ADMISSION DIAGNOSES: 1. Respiratory failure. 2. COPD exacerbation. 3. Pneumonia. 4. Possible PE. 5. History of GI bleed. 6. History of pacemaker. DISCHARGE DIAGNOSES: 1. Respiratory failure. 2. COPD exacerbation. 3. Pneumonia. 4. Possible PE. 5. History of GI bleed. 6. History of pacemaker. HOSPITAL COURSE: The patent is a pleasant 79-year-old female. She has a history of severe chronic obstructive pulmonary disease, pulmonary fibrosis, and hypertension. She has a prior history of DVT and because of massive gastrointestinal bleed, on anticoagulation, she had a filter placed. She was transferred to the emergency room with complaints of worsening shortness of breath. She was diagnosed with COPD exacerbation as well as congestive heart failure exacerbation and possible pneumonia. She received intravenous antibiotics. She was aggressively diuresed. She received intravenous steroids and respiratory treatments. She had a ventilation/perfusion scan, which showed mostly matched defects. She had a CT angio of the chest that was low likelihood for pulmonary embolism. She was continued on diuretic therapy as well as steroids and breathing treatments. Clinically, she improved with therapy and on discharge, she was stable. She will be discharged back to [facility] facility. She will complete an additional week of antibiotic therapy for her pneumonia. She will also be weaned gradually on her steroids. DISCHARGE MEDICATIONS: Please see discharge medication list for discharge medications. DIET: Cardiac diet. ACTIVITIES: Ad-eris. Harjit Nguyen M.D. DR: CHAPARRO JOB#: [id number] CC:
== END 2019-07-27 12:20 | DRG 291 ==
LOC: EDBD 10:54 → EMR 11:40 → 2E 11:45 → EDBEDREQ 13:32 → 2E 22:05
DX: I11.0 Hypertensive heart disease with heart failure (principal); J18.9 Pneumonia, unspecified organism; J96.91 Respiratory failure, unspecified with hypoxia; J44.0 Chronic obstructive pulmonary disease with (acute) lower respiratory infection; E44.0 Moderate protein-calorie malnutrition; J44.1 Chronic obstructive pulmonary disease with (acute) exacerbation; I82.413 Acute embolism and thrombosis of femoral vein, bilateral; I82.493 Acute embolism and thrombosis of other specified deep vein of lower extremity, bilateral; I50.33 Acute on chronic diastolic (congestive) heart failure; Z95.0 Presence of cardiac pacemaker; J84.10 Pulmonary fibrosis, unspecified; Z95.828 Presence of other vascular implants and grafts; Z79.82 Long term (current) use of aspirin; E03.9 Hypothyroidism, unspecified; Z22.322 Carrier or suspected carrier of Methicillin resistant Staphylococcus aureus; Z86.711 Personal history of pulmonary embolism; I87.2 Venous insufficiency (chronic) (peripheral); Y95 Nosocomial condition
CPT/HCPCS: 36415; 71045; 71275; 74018; 74176; 78579; 78580; 80048; 80053; 80202; 82962; 83735; 83880; 84484; 85007; 85025; 87040; 87070; 87081; 87205; 93005; 93306; 93970; 94640; 96365; 96375; 99291; A9503; J7620; J8499